=== PATIENT | female | born 1990 | race Caucasian/White ===

== ENCOUNTER 2017-04-05 20:05 | Emergency (ER) | payer OTHER, MEDICAID, SELFPAY ==
[2017-04-05 20:06] VITALS: BP 126/67; PULSE 97; RESP 12; TEMP 37.4; O2SAT 98; BMI 27.6
[2017-04-05 21:18] VITALS: BP 115/67; PULSE 89; RESP 17; O2SAT 97
--- NOTE | 2017-04-05 22:42 | NURSING ---
PT FLU POSITIVE.
--- NOTE | 2017-04-05 22:46 | ED.VISSUMM ---
- ER Visit Summary Date of Service: 04/05/17 Chief Complaint: Flulike symptoms that started less than 48 hours ago History of Present Illness: The patient is a 26 F who is a Ab0 female who is approximately 21 weeks gestation presents with flulike symptoms that started less than 48 hours ago. She complains of headache, rhinorrhea, sore throat, cough that is now productive of green colored sputum, myalgias and arthralgias and subjective fever with sweats. She denies any GI or symptoms. She denies photophobia sips of her neck. She denies rash. Please read written note for complete detail Physical Examination: Vital signs are unremarkable. HEENT exam is remarkable for clear rhinorrhea. Posterior pharynx mild erythema with postnasal drainage. Lungs are without wheeze rales rhonchi. Heart is regular without murmur, gallop or rub. There is no skin lesions noted. Test Results: Test for influenza is positive Emergency Department Course and Treatment: Tamiflu 750 mg in the department and her appliance worker Dr. Sho Amezcua was notified Treatment Plan: Prescription for Tamiflu 75 mg 1 twice daily for a total of 10 doses Disposition: Discharge to home Impression: Influenza Second trimester History of labor This note was generated with [employer] dictation software. It may contain incorrect words, spelling, and punctuation that were not noted in review of the chart prior to signing ED Disposition - Plan for ED Patient: Disposition: Home or Assisted Living Chief Complaint: Cold Sx Instructions: ED Flu Prescriptions: Oseltamivir Phosphate [Tamiflu] 75 mg PO BID #9 cap Referrals: Gallo Chacko III, MD [Primary Care Provider] - Sho Amezcua MD [STAFF PHYSICIAN] - As Needed Additional Instructions: Your prescription was electronically transmitted to [facility]
--- NOTE | 2017-04-05 22:50 | ED.DCSUM_ITS ---
- ER Visit Summary Date of Service: 04/05/17 Chief Complaint: Flulike symptoms that started less than 48 hours ago History of Present Illness: The patient is a 26 F who is a Ab0 female who is approximately 21 weeks gestation presents with flulike symptoms that started less than 48 hours ago. She complains of headache, rhinorrhea, sore throat, cough that is now productive of green colored sputum, myalgias and arthralgias and subjective fever with sweats. She denies any GI or symptoms. She denies photophobia sips of her neck. She denies rash. Please read written note for complete detail Physical Examination: Vital signs are unremarkable. HEENT exam is remarkable for clear rhinorrhea. Posterior pharynx mild erythema with postnasal drainage. Lungs are without wheeze rales rhonchi. Heart is regular without murmur, gallop or rub. There is no skin lesions noted. Test Results: Test for influenza is positive Emergency Department Course and Treatment: Tamiflu 750 mg in the department and her cloth spreader Dr. Sho Amezcua was notified Treatment Plan: Prescription for Tamiflu 75 mg 1 twice daily for a total of 10 doses Disposition: Discharge to home Impression: Influenza Second trimester History of labor This note was generated with [employer] dictation software. It may contain incorrect words, spelling, and punctuation that were not noted in review of the chart prior to signing ED Disposition - Plan for ED Patient: Disposition: Home or Assisted Living Chief Complaint: Cold Sx Instructions: ED Flu Prescriptions: Oseltamivir Phosphate [Tamiflu] 75 mg PO BID #9 cap Referrals: Gallo Chacko III, MD [Primary Care Provider] - Sho Amezcua MD [STAFF PHYSICIAN] - As Needed Additional Instructions: Your prescription was electronically transmitted to [facility]
[2017-04-05 22:51] VITALS: BP 114/54; PULSE 83; RESP 15; O2SAT 98
[2017-04-05] MEDS: Oseltamivir Phosphate 75 MG Capsule PO (22:56)
== END 2017-04-05 22:58 | disposition home or self-care (01) ==
PROVIDERS: Emergency Provider Emergency Medicine; Family Provider Family Medicine; PCP Family Medicine
DX: O98.512 Other viral diseases complicating pregnancy, second trimester (principal); J11.1 Influenza due to unidentified influenza virus with other respiratory manifestations; O09.212 Supervision of pregnancy with history of pre-term labor, second trimester; Z3A.21 21 weeks gestation of pregnancy
CPT/HCPCS: 87804; 99282

== ENCOUNTER → 2017-05-16 08:43 | Outpatient (CLI) | payer OTHER, MEDICAID, SELFPAY ==
[2017-05-16 13:04] LABS: Absolute Lymphocyte Count 1.64 X10^3/ul (0.83-4.51); Absolute Neutrophil Count 6.2 X10^3/uL (2.0-7.7); Basophil# 0.02 X10^3/uL; Basophil% 0.2 % (0-1); Eosinophil# 0.32 X10^3/uL; Eosinophils% 3.8 % (0-5); Hematocrit 32.2 % (37-47); Hemoglobin 10.7 g/dl (12.0-15.0); Lymphocyte # 1.64 X10^3/ul (4.0); Lymphocyte % 19.3 % (19-41); Mean Corp Hgb Conc 33.2 g/gl (32-36); Mean Corpuscular Hgb 30.3 pg (27.0-32.0); Mean Corpuscular Volume 91.2 fL (81-99); Mean Platelet Vol. 10.6 fl (6.2-12.0); Monocyte# 0.29 X10^3/uL; Monocyte% 3.4 % (0-10); Neutrophil # 6.21 X10^3/uL (2.7-7.7); Neutrophil % 72.9 % (47-70); Platelet Count 240 K/mm3 (150-450); RBC Distribution Width CV 13.1 % (11.6-14.6); RBC Distribution Width SD 42.9 fl (35.1-43.9); Red Blood Count 3.53 M/mm3 (4.2-5.4); White Blood Count 8.5 K/mm3 (4.4-11.0)
[2017-05-16 13:12] LABS: POSITIVE COUNT NO; POSITIVE DIFFERENTIAL NO; POSITIVE MORPHOLOGY NO
[2017-05-16 13:28] LABS: Glucose Challenge Gest 1H 50g 113 mg/dL (70-140)
== END ==
PROVIDERS: Family Provider Family Medicine; PCP Family Medicine; Visit Provider Obstetrics & Gynecology
DX: O09.892 Supervision of other high risk pregnancies, second trimester (principal); Z3A.00 Weeks of gestation of pregnancy not specified
CPT/HCPCS: 36415; 82950; 85025

== ENCOUNTER → 2017-05-16 18:04 | Outpatient (CLI) | payer OTHER, MEDICAID, SELFPAY | PROVIDERS: Family Provider Family Medicine; PCP Family Medicine; Visit Provider Obstetrics & Gynecology | DX: O09.892 Supervision of other high risk pregnancies, second trimester (principal); Z3A.00 Weeks of gestation of pregnancy not specified | CPT/HCPCS: 87086; 87088 ==

== ENCOUNTER → 2017-06-18 10:16 | Outpatient (CLI) | payer OTHER, MEDICAID, SELFPAY ==
[2017-06-18 12:58] LABS: Absolute Lymphocyte Count 1.56 X10^3/ul (0.83-4.51); Absolute Neutrophil Count 5.9 X10^3/uL (2.0-7.7); Basophil# 0.02 X10^3/uL; Basophil% 0.2 % (0-1); Eosinophil# 0.21 X10^3/uL; Eosinophils% 2.6 % (0-5); Hematocrit 33.8 % (37-47); Hemoglobin 11.5 g/dl (12.0-15.0); Lymphocyte # 1.56 X10^3/ul (4.0); Mean Corpuscular Hgb 30.5 pg (27.0-32.0); Mean Corpuscular Volume 89.7 fL (81-99); Mean Platelet Vol. 10.4 fl (6.2-12.0); Monocyte# 0.53 X10^3/uL; Monocyte% 6.5 % (0-10); Neutrophil # 5.85 X10^3/uL (2.7-7.7); Neutrophil % 71.5 % (47-70); Platelet Count 259 K/mm3 (150-450); RBC Distribution Width CV 13.5 % (11.6-14.6); RBC Distribution Width SD 43.3 fl (35.1-43.9); Red Blood Count 3.77 M/mm3 (4.2-5.4); White Blood Count 8.2 K/mm3 (4.4-11.0)
[2017-06-18 13:00] LABS: POSITIVE COUNT NO; POSITIVE DIFFERENTIAL NO; POSITIVE MORPHOLOGY NO
== END ==
PROVIDERS: Family Provider Family Medicine; PCP Family Medicine; Visit Provider Nurse Practitioner Women's Health
DX: O99.012 Anemia complicating pregnancy, second trimester (principal); Z3A.00 Weeks of gestation of pregnancy not specified
CPT/HCPCS: 85025

== ENCOUNTER → 2017-07-02 16:57 | Outpatient (CLI) | payer OTHER, MEDICAID, SELFPAY ==
[2017-07-02 18:16] LABS: Group B Strep DNA By PCR Negative (Negative); Internal Control PASS; Probe Check PASS; Specimen Processing Control PASS
== END ==
PROVIDERS: Family Provider Family Medicine; PCP Family Medicine; Visit Provider Obstetrics & Gynecology
DX: O09.892 Supervision of other high risk pregnancies, second trimester (principal); Z3A.00 Weeks of gestation of pregnancy not specified
CPT/HCPCS: 87081; 87653

== ENCOUNTER → 2017-07-23 16:34 | Outpatient (CLI) | payer OTHER, MEDICAID, SELFPAY ==
[2017-07-23 19:10] LABS: Group B Strep DNA By PCR Negative (Negative)
[2017-07-23 19:11] LABS: Internal Control PASS; Probe Check PASS; Specimen Processing Control PASS
== END ==
PROVIDERS: Family Provider Family Medicine; PCP Family Medicine; Visit Provider Obstetrics & Gynecology
DX: O09.892 Supervision of other high risk pregnancies, second trimester (principal); Z3A.00 Weeks of gestation of pregnancy not specified
CPT/HCPCS: 87081; 87653

== ENCOUNTER → 2017-07-30 17:31 | Outpatient (CLI) | payer OTHER, MEDICAID, SELFPAY | PROVIDERS: Family Provider Family Medicine; PCP Family Medicine; Visit Provider Nurse Practitioner Women's Health | DX: O09.892 Supervision of other high risk pregnancies, second trimester (principal); Z3A.00 Weeks of gestation of pregnancy not specified | CPT/HCPCS: 87086; 87088 ==

== ENCOUNTER 2017-08-07 13:25 | Outpatient (CLI) | payer OTHER, MEDICAID, SELFPAY ==
[2017-08-07 14:50] VITALS: BMI 31.2
--- NOTE | 2017-08-07 14:56 | OB.TRI.NOTE ---
- Problem List (1) False labor after 37 completed weeks of gestation Status: Acute History of Present Illness Reason For Visit: ROL Allergies venom-wasp Allergy (Verified 08/06/17 09:15) Anaphylaxis NST - FHR Rate Baby A Baseline: 120-130 Variability:: Moderate Accelerations:: 15 x 15 Decelerations:: None NST Reactive:: Yes FHR Category:: Category I Uterine Activity:: q8-10 Impression/Plan false labor no cervical change given percocet for pain dc home
[2017-08-07] MEDS: Acetaminophen 325 MG Tablet 650 MG PO (15:22)
[2017-08-07] MEDS: oxyCODONE 5 MG Tablet 10 MG PO (15:22)
== END 2017-08-07 16:15 | disposition home or self-care (01) ==
LOC: WPOUT 13:57 → WP 14:50
PROVIDERS: Family Provider Family Medicine; PCP Family Medicine; Visit Provider Obstetrics & Gynecology
DX: O47.1 False labor at or after 37 completed weeks of gestation (principal); Z3A.00 Weeks of gestation of pregnancy not specified
CPT/HCPCS: 59025; 59050; 99218; G0378

== ENCOUNTER 2017-08-08 09:56 | Emergency (ER) | payer OTHER, MEDICAID, SELFPAY ==
[2017-08-08 09:57] VITALS: BP 125/64; PULSE 80; RESP 16; TEMP 36.8; O2SAT 97; BMI 31.2
--- NOTE | 2017-08-08 10:13 | ED.DCSUM_ITS ---
- ER Visit Summary Date of Service: 08/08/17 Chief Complaint: Sore throat History of Present Illness: The patient is a 27 F who is currently 38 weeks . Patient states her daughter was diagnosed with strep last week. Last evening she developed sore throat and ear pressure. She had myalgias but no measured fever. She has not had significant cough. She does have pain with swallowing but is able to drink and eat. Physical Examination: Vital signs are unremarkable. Patient sitting upright in bed no acute distress. She is a strong voice and is tolerating secretions well. TMs are clear bilaterally. Posterior pharynx examination was 3+ tonsils with erythema. No exudate noted at this time. Uvula is midline. She does have bilateral cervical lymphadenopathy. Heart is regular rate and rhythm. Lung sounds are clear. Abdomen is soft and gravid. She has been feeling normal movement. Test Results: [] Emergency Department Course and Treatment: Patient has known exposure with exam consistent with strep pharyngitis. She will be treated with amoxicillin. Treatment Plan: [] Disposition: Discharge Impression: 1. Strep pharyngitis 2. Third trimester This note was generated with [facility] dictation software. It may contain incorrect words, spelling, and punctuation that were not noted in review of the chart prior to signing ED Disposition - Plan for ED Patient: Chief Complaint: Sore Throat Referrals: Gallo Chacko III, MD [Primary Care Provider] -
--- NOTE | 2017-08-08 10:13 | ED.DEP ---
ED Disposition - Plan for ED Patient: Disposition: Home or Assisted Living Chief Complaint: Sore Throat Instructions: ED Strep Pharyngitis Poss Prescriptions: Amoxicillin 875 mg PO BID #10 tablet Referrals: Gallo Chacko III, MD [Primary Care Provider] - Sho Amezcua MD [STAFF PHYSICIAN] -
[2017-08-08] MEDS: AMOXICILLIN 500 MG CAPSULE 1000 MG PO (10:22)
[2017-08-08 10:23] VITALS: BP 125/64; PULSE 80; RESP 17
== END 2017-08-08 10:39 | disposition home or self-care (01) ==
LOC: ED 10:34
PROVIDERS: Emergency Provider Emergency Medicine; Family Provider Family Medicine; PCP Family Medicine
DX: O26.893 Other specified pregnancy related conditions, third trimester (principal); J02.0 Streptococcal pharyngitis; Z3A.38 38 weeks gestation of pregnancy; Z79.899 Other long term (current) drug therapy
CPT/HCPCS: 99283

== ENCOUNTER 2017-08-15 14:55 | Inpatient (IN) | payer OTHER, MEDICAID, SELFPAY ==
--- NOTE | 2017-08-15 11:00 | US_ITS ---
STUDY: SECOND AND THIRD TRIMESTER OBSTETRICAL ULTRASOUND - LIMITED REASON FOR EXAM: Female, 27 years old. growth LMP: 11/11/2016 PRIOR ULTRASOUND: None. TECHNIQUE: Transabdominal ultrasound evaluation was performed. FINDINGS: There is a single intrauterine fetus. The fetus is in a cephalic presentation. There is demonstrated cardiac activity with a heart rate of 132 bpm. There is a normal amniotic fluid volume. The largest amniotic fluid pocket measures 3.3 cm. The amniotic fluid index (GONZALO) is 11.4 cm. The placenta is anterior in location and is not low lying. There are Grade 2 placental changes. The cervix measures 3.3 cm in length. BIOMETRY: BPD: 9.0: 36 weeks, 4 days HC: 32.2: 36 weeks, 3 days AC: 32.2: 36 weeks, 0 days FL: 7.0: 35 weeks, 6 days Age by LMP: 39 weeks, 4 days. CHAY by LMP: 08/18/2017. age by prior US: weeks, days. CHAY by prior US: . age by current US: 36 weeks, 2 days. CHAY by current US: 09/10/2017. Estimated weight: 2859 grams, +/- 418 grams, 7 percentile. Gender: US/OB Limited With Biometrics IMPRESSION: Single live fetus in a vertex presentation. survey not performed on this exam. Placenta is grade 2 and is not low-lying. Cervix is closed. age by current US: 36 weeks, 2 days. CHAY by current US: 09/10/2017. Estimated weight: 2859 grams, +/- 418 grams, 7 percentile. Electronically Signed: Alcon Gaviria MD at 23:46 EDT , Service support ,
--- NOTE | 2017-08-15 14:55 | DT_ITS ---
This patient was seen during an EMR downtime August 12, 2017 - August 19, 2017. This patient may have a combination of paper and electronic documentation or all paper documentation. All documentation is viewable within the e-chart portion of [employer] for each patient visit.
[2017-08-20 04:06] LABS: Hematocrit 32.1 % (37-47); Hemoglobin 10.4 g/dl (12.0-15.0); Mean Corp Hgb Conc 32.4 g/gl (32-36); Mean Corpuscular Hgb 28.3 pg (27.0-32.0); Mean Corpuscular Volume 87.5 fL (81-99); Mean Platelet Vol. 11.5 fl (6.2-12.0); Platelet Count 203 K/mm3 (150-450); RBC Distribution Width CV 13.5 % (11.6-14.6); RBC Distribution Width SD 41.7 fl (35.1-43.9); Red Blood Count 3.67 M/mm3 (4.2-5.4); Scan Indicated on CBC? Y/N NO; White Blood Count 11.4 K/mm3 (4.4-11.0)
== END 2017-08-17 14:30 | disposition home or self-care (01) | DRG 775 ==
LOC: WP 15:01
PROVIDERS: Admitting Provider Obstetrics & Gynecology; Family Provider Family Medicine; PCP Family Medicine; Visit Provider Obstetrics & Gynecology
DX: O36.5930 Maternal care for other known or suspected poor fetal growth, third trimester, not applicable or unspecified (principal); O34.219 Maternal care for unspecified type scar from previous cesarean delivery; O99.613 Diseases of the digestive system complicating pregnancy, third trimester; K21.9 Gastro-esophageal reflux disease without esophagitis; Z3A.39 39 weeks gestation of pregnancy; Z37.0 Single live birth
CPT/HCPCS: 59025; 59050; 76816; 85027; 86850; 86900; 99218; J7120; G0378

== ENCOUNTER → 2017-08-26 15:14 | Outpatient (CLI) | payer OTHER, MEDICAID, SELFPAY | PROVIDERS: Family Provider Family Medicine; PCP Family Medicine; Visit Provider Obstetrics & Gynecology | DX: R30.0 Dysuria (principal) | CPT/HCPCS: 87086; 87088 ==

== ENCOUNTER 2023-05-28 12:22 | Outpatient (REF) | payer SELFPAY ==
[2023-05-28 12:23] VITALS: BP 123/71; PULSE 76; RESP 15; RESP 16; TEMP 36.4; O2SAT 97; BMI 27.4
--- NOTE | 2023-05-28 13:06 | EDS_ITS ---
HPI History of Present Illness Chief Complaint: Occup Expose Informant: patient Onset/Context/Timing Onset: Today Context: Sudden Onset Timing: Continuous Quality: Puncture wound Location: Tip of right middle finger Worsened by: Nothing Relieved by: Nothing Narrative Narrative: Patient presents with blood-borne exposure that occurred today. Patient was assisting in surgery and was cut on the tip of her right middle finger by the surgical scalpel. Patient states she squeezed her finger. Patient states the bleeding stopped after a few minutes. Patient denies any fevers or chills. Patient denies any paresthesias or weakness. Patient is unsure of her last tetanus. Patient states that she was assisting on a spine surgery. 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- [employer] Smoking Status: Never smoker alcohol intake: current alcohol intake frequency: holidays/special occasions only substance use type: does not use caffeine: Yes what type of physical activity do you participate in: walking seatbelt use: always do you feel safe at home: Yes additional social history: [employer]- [employer] ROS ROS ED Constitutional Constitutional ED: Denies chills or fever(s) Eyes Eyes: Denies blurry vision or change in vision ENT ENT ED: Denies rhinorrhea or sore throat Cardiovascular Cardiovascular: Denies chest pain or palpitations Respiratory/Chest Respiratory/Chest: Denies cough or dyspnea Gastrointestinal Gastrointestinal: Denies nausea or vomiting Genitourinary Genitourinary ED: Denies dysuria or hematuria Musculoskeletal Musculoskeletal: Denies back pain or neck pain Integumentary Denies abscess or rash Neurologic Neurologic: Denies headache(s) or weakness Allergic/Immunologic Allergic/Immunologic ED: Denies mouth swelling or urticaria EXAM Physical Exam Const Vital Signs: 05/28/23 12:23 05/28/23 12:23 Temperature 97.5 F L 97.5 F L Temperature Source Temporal Temporal Pulse Rate 76 76 Respiratory Rate 15 16 Blood Pressure 123/71 H 123/71 H Blood Pressure Mean 88 88 Pulse Ox 97 97 Oxygen Delivery Method Room Air Room Air Positive well nourished and well developed General Appearance ED: well developed and NAD HEENT Reports moist mucous membranes Neck supple and no JVD Extremity Extremity Narrative: There is a small 2 to 3 mm linear laceration over the tip of the right middle finger. There is no active bleeding noted. Sensation was intact to light touch in all digits. Capillary refill was less than 2 seconds in all digits. There is full range of motion in the MP, PIP, and DIP joints of the right middle finger. General Extremety ED: Negative for edema General Extremity: Negative for edema Neuro oriented x3, CN's II-XII intact bilaterally and no sensory deficits noted Sensorium / Orientation: alert Motor Exam: strength 5/5 throughout Psych mental status grossly normal MDM MDM MDM Narrative Medical decision making narrative: Patient was given a tetanus booster here. The wound was cleaned and dressed. Medical exposure labs were obtained. Patient will follow-up with [facility] for these results. Patient was instructed to return if worse in any way. Patient understood and was agreeable with the plan. All questions were answered. Discharge Plan Triage Chief Complaint: Occup Expose ED Provider: Henry Rehman Dx/Rx/DC Orders Clinical Impression: Exposure to blood-borne pathogen, Puncture wound of right middle finger Instructions: ED NEEDLE STICK Health Care Worker Prescriptions: No Action multivitamin Tablet 1 tab PO DAILY Primary Care Provider: Care Physician,No Primary Referrals: Health,Employee [Non-Staff -Ordering Privileges] - 3-5 Days Care Physician,No Primary [Primary Care Provider] - Disposition Disposition: Home, Self Care
[2023-05-28] MEDS: Diphth,Pertuss(Acell),Tet Vac 0.5 ML Vial IM (13:28)
[2023-05-28 13:31] VITALS: BP 122/72; PULSE 74; RESP 16; TEMP 36.4; O2SAT 98
[2023-05-28 13:53] LABS: HIV - WCH Non-Reactive (Nonreactive); Hepatitis B Surface Antibody Non-Reactive; Hepatitis B Surface Antigen Non-Reactive (Nonreactive); Hepatitis C Antibody Non-Reactive (Nonreactive)
== END 2023-05-28 13:40 | disposition home or self-care (01) ==
LOC: ED 12:22
PROVIDERS: Visit Provider Emergency Medicine
DX: S61.212A Laceration without foreign body of right middle finger without damage to nail, initial encounter (principal); W26.8XXA Contact with other sharp object(s), not elsewhere classified, initial encounter; Y92.234 Operating room of hospital as the place of occurrence of the external cause; Z23 Encounter for immunization
CPT/HCPCS: 86703; 86706; 86803; 87340; 90471; 90715

== ENCOUNTER 2023-10-28 11:13 | Emergency (ER) | payer OTHER, SELFPAY ==
[2023-10-28 11:14] VITALS: BP 127/72; PULSE 78; RESP 16; TEMP 36.6; O2SAT 99; BMI 27.7
--- NOTE | 2023-10-28 11:40 | CT_ITS ---
STUDY: CT CERVICAL SPINE WITHOUT CONTRAST REASON FOR EXAM: Female, 33 years old. Injury RADIATION DOSAGE (If Supplied By Facility): CTDIvol = ( 20.77 ) mGy, DLP = ( 442.30 ) mGycm TECHNIQUE: High resolution transaxial imaging was performed without contrast material. Sagittal and coronal images were reconstructed. CT scan performed according to ALARA principles. Automated exposure control used during exam. COMPARISON: No relevant prior comparison study available FINDINGS: BONES: There is no fracture in the cervical spine. The dens is intact. The vertebral body heights are maintained. ALIGNMENT: There is no dislocation. There is straightening of the normal cervical lordosis which may be due to paraspinal muscle spasm or may be positional in nature. DISC SPACES: The vertebral spaces are well-maintained. LUNG APICES: The visualized lung apices are clear. SOFT TISSUES: The visualized paraspinal soft tissues are within normal limits. CT/Spine Cervical without Contras IMPRESSION: No fracture or dislocation in the cervical spine. Straightening of the normal cervical lordosis which may be due to paraspinal muscle spasm or may be positional in nature. No significant degenerative changes. Electronically Signed: Lane Piña MD at 12:39 EDT ,
--- NOTE | 2023-10-28 11:40 | CT_ITS ---
STUDY: CT BRAIN WITHOUT CONTRAST REASON FOR EXAM: Female, 33 years old. Injury RADIATION DOSAGE (If Supplied By Facility): CTDIvol = ( 44.99 ) mGy, DLP = ( 796.11 ) mGycm TECHNIQUE: Transaxial CT imaging of the brain was performed without administration of intravenous contrast material. CT scan performed according to ALARA principles. Automated exposure control used during exam. COMPARISON: No relevant prior comparison study available FINDINGS: PARENCHYMA: There is no acute bleed or infarct. There are normal white matter tracts. VENTRICLES: There is no hydrocephalus. MASTOID AIR CELLS AND PARANASAL SINUSES: The visualized paranasal sinuses are clear. The mastoid air cells are clear. BONES: There is no skull fracture. SOFT TISSUES: The visualized soft tissues are within normal limits. CT/Brain/Head without Contrast IMPRESSION: No acute intracranial abnormality. Electronically Signed: Lane Piña MD at 12:37 EDT ,
--- NOTE | 2023-10-28 11:41 | EDS_ITS ---
HPI HPI - Fall History of Present Illness Chief Complaint: Fall Informant: patient Narrative Narrative: Very pleasant 36-year-old female presenting to the emergency room with the chief complaint head neck injury. 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 No reported loss of consciousness. She does not take blood thinners. She denies seeing any bleeding. She notes pain at around the C7 spinous process. No arm or leg symptoms. No nausea vomiting. 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- [employer] Smoking Status: Never smoker alcohol intake: current alcohol intake frequency: holidays/special occasions only substance use type: does not use caffeine: Yes what type of physical activity do you participate in: walking seatbelt use: always do you feel safe at home: Yes additional social history: [employer]- [employer] ROS ROS ED Constitutional Constitutional ED: Denies chills, fever(s) or weight loss Eyes Eyes: Denies change in vision or diplopia ENT ENT ED: Denies ear pain, rhinorrhea or sore throat Cardiovascular Cardiovascular: Denies chest pain, orthopnea, palpitations or racing heartbeat Respiratory/Chest Respiratory/Chest: Denies cough, dyspnea or orthopnea Gastrointestinal Gastrointestinal: Denies abdominal pain, diarrhea, nausea or vomiting Genitourinary Genitourinary ED: Denies dysuria, hematuria or urinary frequency Musculoskeletal Musculoskeletal: Reports neck pain; Denies arthralgias, back pain or myalgias Integumentary Denies abscess or rash Neurologic Neurologic: Reports headache(s); Denies paresthesias or weakness Psychiatric Psychiatric: Denies anxiety, depression, suicidal ideation or suicidal thoughts Endocrine Endocrinology: Denies polydipsia, polyphagia or polyuria Allergic/Immunologic Allergic/Immunologic ED: Denies mouth swelling, tongue swelling or urticaria EXAM Physical Exam Const Vital Signs: 10/28/23 11:14 10/28/23 11:52 10/28/23 12:58 Temperature 97.8 F 98.2 F Temperature Source Temporal Pulse Rate 78 60 Respiratory Rate 16 18 Respiratory Effort Normal Blood Pressure 127/72 H 118/76 Blood Pressure Mean 90 90 Pulse Ox 99 99 Oxygen Delivery Method Room Air Positive well nourished and well developed General Appearance ED: well developed and NAD HEENT Reports normocephalic, head/scalp atraumatic and moist mucous membranes Eyes PERRL and EOMs intact bilaterally Neck full ROM, no lymphadenopathy, supple and no JVD Neck Narrative: Midline tenderness at the C7 spinous process. Resp normal respiratory effort and clear to auscultation bilaterally Cardio regular rate, regular rhythm and no murmurs GI normal to inspection, nondistended, normoactive bowel sounds and non-tender Palpation: soft Back/Spine no CVA tenderness and normal ROM Extremity normal to inspection General Extremety ED: Negative for edema General Extremity: Negative for edema Neuro oriented x3 and CN's II-XII intact bilaterally Sensorium / Orientation: alert Motor Exam: strength 5/5 throughout Psych mental status grossly normal Mood & Affect: Negative for depressed or tearful Skin no rashes or lesions noted and no wounds MDM MDM MDM Narrative Medical decision making narrative: Differential diagnosis includes but not limited to contusion fracture both skull and cervical spine intracranial hemorrhage/hematoma concussion CT the cervical spine was negative for acute findings of fracture CT the brain negative for hemorrhage. Patient took anti-inflammatories prior to arrival. Plan will be discharge follow-up as needed return if worsening or concerns History & Record Review Discussion w/independent historian: Patient Radiography Diagnostic Testing: Clinical Impression(s) from Imaging Studies Brain CT 10/28/23 11:40 IMPRESSION: No acute intracranial abnormality. Electronically Signed: Lane Piña MD at 12:37 EDT , Cervical Spine CT 10/28/23 11:40 IMPRESSION: No fracture or dislocation in the cervical spine. Straightening of the normal cervical lordosis which may be due to paraspinal muscle spasm or may be positional in nature. No significant degenerative changes. Electronically Signed: Lane Piña MD at 12:39 EDT , Discharge Plan Triage Chief Complaint: Fall ED Provider: Jhon Vela Dx/Rx/DC Orders Clinical Impression: Contusion of scalp, Contusion of neck, Fall Instructions: ED Head Injury (Adult), ED Neck Sprain or Strain Prescriptions: No Action multivitamin Tablet 1 tab PO DAILY Primary Care Provider: Alon Erickson Referrals: Alon Erickson MD [Primary Care Provider] - As Needed Print Language: Latvian Disposition Disposition: Home, Self Care Discharge Date/Time: 10/28/23 12:58
[2023-10-28 12:58] VITALS: BP 118/76; PULSE 60; RESP 18; TEMP 36.8; O2SAT 99
== END 2023-10-28 12:58 | disposition home or self-care (01) ==
PROVIDERS: Emergency Provider Emergency Medicine; PCP Internal Medicine; Visit Provider Emergency Medicine
DX: S00.03XA Contusion of scalp, initial encounter (principal); S10.93XA Contusion of unspecified part of neck, initial encounter; W01.0XXA Fall on same level from slipping, tripping and stumbling without subsequent striking against object, initial encounter; Y99.0 Civilian activity done for income or pay
CPT/HCPCS: 70450; 72125; 99282

== ENCOUNTER → 2024-08-31 | Outpatient (CLI) | payer OTHER, SELFPAY ==
--- NOTE | 2024-08-31 10:00 | RAD_ITS ---
PROCEDURE: FOOT MIN 3 VIEWS 08/31/2024 REASON FOR EXAM: PAIN TECHNIQUE: FOOT MIN 3 VIEWS COMPARISON: None RAD/Foot min 3 Views IMPRESSION: An intra-articular mildly-comminuted Fracture of the distal portion of the left 5th proximal phalanx is seen. On lateral imaging, normal contour of the Achilles tendon is seen. Mild inferi or calcaneal spurring is noted. No ankle joint effusion is evident. Minimal degenerative changes are seen of the 1st metatarsophalangeal joint, wit hout hallux valgus or joint space narrowing identified. Reading Location: [place] [id number]
== END | disposition home or self-care (01) ==
LOC: MTRAD 09:57
PROVIDERS: PCP Internal Medicine; Referring Provider Physician Assistant; Visit Provider Physician Assistant
DX: M79.672 Pain in left foot (principal)
CPT/HCPCS: 73630

== ENCOUNTER → 2024-11-26 | Outpatient (CLI) | payer OTHER, SELFPAY ==
--- OUTSIDE RECORDS SUMMARY | 2024-11-26 06:58 | XMS RPT_ITS | CCD ---
Author Organization [facility] Care Team Providers Care Geospatial Analyst Name Role Phone Leland UTILIZATION REVIEW SPECIALIST, Kiana Wray Unavailable Goldie FLETCHER, Sho Luna Unavailable Manisha Campoverde Unavailable Unavailable Georgina FLETCHER, Dr. Chi Primary Care Provider Dr. Alon Erickson MD Referring Provider Joan MUNOZ-Bryan Fuller Attending Provider Lane Mead Attending Provider Lane Mead Referring Provider Dr. Alon Erickson MD Primary Care Provider Dr. Alon Erickson MD Referring Provider Kiana Hairston Attending Provider Lane Mead Attending Unavailable Lane Mead Referring Unavailable Oleghe, Efewongbe Primary Care Unavailable Oleghe, Efewongbe Primary Care Unavailable Moomaw, Bryan Attending Unavailable Oleghe, Efewongbe Referring Unavailable Lane Mead Attending Unavailable Oleghe, Efewongbe Primary Care Unavailable Oleghe, Efewongbe Referring Unavailable Moomaw, Bryan Attending Unavailable Oleghe, Efewongbe Primary Care Unavailable Oleghe, Efewongbe Referring Unavailable Oleghe, Efewongbe Primary Care Unavailable Lane Mead Attending Unavailable Oleghe, Efewongbe Referring Unavailable Kiana Fisher Attending Unavailable Oleghe, Efewongbe Referring Unavailable Oleghe, Efewongbe Primary Care Unavailable Allergies Allergy Classification Reported Allergen(s) Allergy Type Date of Onset Reaction(s) Facility (4 sources) venom-wasp Allergy to substance 05-28-2023 Anaphylaxis [facility] (1 source) venom-wasp Drug allergy (disorder) 11-19-2024 [facility] Repository Medications Current Medications Medication Drug Class(es) Dates Sig (Normalized) Sig (Original) acetaminophen 325 mg oral tablet (1 source) Start: 11-19-2024 take 1 tablet by mouth once as needed Acetaminophen (Tylenol) 325 mg tablet Active 325 mg PO ONCE as needed November 19, 2024 12:00am ibuprofen 200 mg oral tablet (1 source) Nonsteroidal Anti-inflammatory Drug Start: 11-19-2024 take 1 tablet by mouth every six hours as needed Ibuprofen 200 mg tablet Active 200 mg PO EVERY 6 HOURS as needed November 19, 2024 12:00am Multivitamin preparation (1 source) Start: 04-25-2022 take 1 tablet by mouth once daily Multivitamin Active 1 TABLET PO DAILY April 25, 2022 1:00am Completed/Discontinued Medications Medication Drug Class(es) Dates Sig (Normalized) Sig (Original) amoxicillin 875 mg oral tablet (4 sources) Penicillin-class Antibacterial Start: 08-08-2017 End: 09-26-2017 take 1 tablet by mouth twice daily Amoxicillin 875 MG tablet Discontinued 875 mg PO TWICE A DAY 10 0 August 08, 2017 12:00am September 26, 2017 2:23pm azithromycin 250 mg oral tablet (7 sources) Macrolide Antimicrobial Start: 01-01-2017 AZITHROMYCIN 250 MG TABS 2 tabs day one and then 1 tab x 4 days AZITHROMYCIN [id number] Sho Amezcua MD cephalexin 500 mg oral capsule (4 sources) Cephalosporin Antibacterial Start: 08-28-2017 End: 09-04-2017 take 1 capsule by mouth three times daily Cephalexin (Keflex) 500 mg capsule Discontinued 500 mg PO THREE TIMES A DAY 21 7 0 August 28, 2017 12:00am September 03, 2017 12:00am September 04, 2017 12:06am space evenly during waking hours fluconazole 150 mg oral tablet (4 sources) Azole Antifungal Start: 05-21-2018 End: 04-25-2022 Fluconazole 150 mg tablet Discontinued 150 mg PO .COMPLEX 2 0 May 21, 2018 12:00am April 25, 2022 1:59pm 150 mg PO take one po now and repeat in 3 days Multivitamin tablet (3 sources) Start: 04-25-2022 End: 11-19-2024 Multivitamin tablet Discontinued 1 {tbl} PO DAILY April 25, 2022 1:00am November 19, 2024 10:14am Start: 04-25-2022 Multivitamin t ablet Active 1 {tbl} PO DAILY April 25, 2022 1:00am Prenat.Vits,Oh,Nby-Ciid-Nmj ic ( Vitamin) tablet (4 sources) Start: 02-26-2017 End: 09-26-2017 Prenat.Vits,Oh,Vzg-Wnvq-Tuc ic ( Vitamin) tablet Discontinued 1 {tbl} PO daily February 26, 2017 1:00am September 26, 2017 2:23pm Start: 02-26-2017 End: 09-26-2017 take 1 tablet by mouth once daily Prenat.Vits,Oh,Hsh-Cudx-Rlxvs ( Vitamin) tablet Discontinued 1 TABLET PO daily February 26, 2017 1:00am September 26, 2017 2:23pm VIT-FE OMW-HA-CKEVY CAPS (3 sources) Start: 12-17-2016 FORMULA CAPS 1 daily VIT-FE VEC-TX-SAWIL CAPS [id number] Sho Amezcua MD VIT-FE MKW-RR-ATGDE CAPS (9 sources) Start: 12-17-2016 FORMULA CAPS 1 daily VIT-FE FWE-IL-GYTVH CAPS [id number] Sho Amezcua MD promethazine hydrochloride 12.5 mg oral tablet (7 sources) Phenothiazine Start: 01-01-2017 take 1 tablet by mouth every six hours as needed PROMETHAZINE HCL 12.5 MG TABS 1 po q 6 hours as needed PROMETHAZINE HCL [id number] Sho Amezcua MD raNITIdine 150 mg oral tablet (4 sources) Histamine-2 Receptor Antagonist Start: 04-16-2017 End: 09-26-2017 take 1 tablet by mouth at bedtime Ranitidine Hcl (Zantac) 150 mg tablet Discontinued 150 mg PO AT BEDTIME 60 5 April 16, 2017 1:00am September 26, 2017 2:23pm Problems Active Problems Problem Classification Problem Date Documented Date Episodic/Chronic Anxiety disorders (4 sources) Mixed anxiety and depressive disorder; Translations: [Anxiety disorder, unspecified] 05-24-2022 Chronic E Codes: Fall (3 sources) Fall; Translations: [Unspecified fall, initial encounter] 11-05-2023 Episodic Early or threatened labor (4 sources) False labor at or after 37 completed weeks of gestation; Translations: [False labor at or after 37 completed weeks of gestation] 11-13-2017 Episodic Fracture of lower limb (7 sources) Closed fracture proximal phalanx, toe ; Translations: [Displaced fracture of proximal phalanx of left lesser toe(s), initial encounter for closed fracture] Onset: 5 08-31-2024 Episodic Open wounds of extremities (4 sources) Puncture wound of middle finger of right hand; Translations: [Puncture wound without foreign body of right middle finger without damage to nail, initial encounter] 05-28-2023 Episodic Other complications of (4 sources) Anemia in mother complicating , childbirth AND/OR puerperium; Translations: [Anemia complicating , second trimester] 08-07-2017 Chronic Comment on above: iron monthly cbc Other complications of (16 sources) Uterine scar from previous surgery affecting ; Translations: [Maternal care for low transverse scar from previous delivery] Onset: 7 12-17-2016 Episodic Comment on above: considering - 74 % success, consent signed after education from tote given Other complications of (4 sources) High risk ; Translations: [Supervision of other high risk pregnancies, second trimester] 11-13-2017 Episodic Comment on above: PRR EDC 08/18/17 girl Aisha Bullock Spouse Bryan Other connective tissue disease (1 source) Pain in left foot; Translations: [Pain in left foot] Onset: Episodic Other female genital disorders (16 sources) Personal history of pre-term labor; Translations: [History of premature labor] Onset: 7 12-17-2016 Episodic Comment on above: [id number] hydroxypro gesterone injections in Other nutritional; endocrine; and metabolic disorders (4 sources) Body mass index 25-29 - overweight; Translations: [Overweight] 05-24-2022 Episodic Residual codes; unclassified (4 sources) Contact with and (suspected) exposure to potentially hazardous body fluids; Translations: [Exposure to blood-borne pathogen] 05-28-2023 Episodic Superficial injury; contusion (6 sources) Contusion of scalp; Translations: [Contusion of scalp, initial encounter] 11-05-2023 Episodic Unclassified (5 sources) 11 weeks gestation of ; Translations: [11 weeks gestation of ] Onset: 7 01-28-2017 Unclassified (3 sources) S92.512A - Displaced fracture of proximal phalanx of left lesser toe(s), initial encounter for closed fracture Unclassified (1 source) Viral infection (5 sources) Viral disease; Translations: [Viral infection, unspecified] 05-13-2024 Episodic Past or Other Problems Problem Classification Problem Date Documented Da te Episodic/Chronic Other and delivery including normal (20 sources) Primigravida; Translations: [Encounter for supervision of normal first , first trimester] Onset: 12-17-2016 12-31-2016 Episodic Results Test Name Value Interpretation Reference Range Facility Folding Machine Operator Office Visit Reporton 11-19-2024 Folding Machine Operator Office Visit Report [facility] [address], [address] [place] [address] OFFICE VISIT Date of Service: 11/19/24 MR#: [id number] Acct: [id number] Name: TARA ARGUELLES Rep #: [id number] : 1990 Provider: SUSHMA Pride Age/Sex: 34/F Location: [facility] Status: Signed Intake Vital Signs 10/28/23 11:14 11/19/24 10:11 Height 5 ft 4 in 5 ft 4 in Weight: 169 lb 4 oz BMI 29.0 BP 112/71 Intake Visit Reasons: BC Consult *COPAY $20 Slip Cover Estimator Required: No Is patient in pain?: No Allergies venom-wasp Allergy (Verified 11/19/24 10:14) Anaphylaxis Medications ???Medication ???Instructions ???Recorded ???Confirmed ???Type acetaminophen 325 mg tablet 325 mg PO ONCE PRN 11/19/24 History (Tylenol) ibuprofen 200 mg tablet 200 mg PO Q6H PRN 11/19/24 5 History Is last menstrual period known: Yes Last Menstrual Period: 10/29/24 Post menopausal: No Patient : No : No Control Method: bilat salp PFSH Medical History Displaced fracture of proximal phalanx of left lesser toe(s), initial encounter for closed fracture Viral illness Anxiety and depression Overweight (BMI 25.0-29.9) Anxiety Surgical History Status post bilateral salpingectomy Family History Father Diabetes Mother Hypertension Social History housing: house number of children: 2 current occupational status: 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 She reports she has noticed more irregular menses. Reports these as heavier as well. Is already scheduled for an IUD placement for this. She reports she has also noticed feeling more fatigue; resistant weight loss. Questioning whether she may be experiencing early perimenopause--reports her mother went through menopause around age 35. Female Reproductive History Last Menstrual Period: 10/29/24 History 2 Elective abortions Hx Para 2 Spontaneous abortions Hx # Term Pregnancies Ectopic pregnancies Hx # Pregnancies Multiple births # of living children 2 Past Pregnancies Del. Date Name GA/Weeks Outcome Route Bth Weight Gen Labor Lgth Anesthesia Del Locatn Provider FOB 04/12/12 Yisel 37 live - full term 5lbs 5oz Female WC JORDAN 08/16/17 Aisha 39 live - full term Female epidural [facility] JORDAN ROS Const Constitutional: Reports system reviewed and no additional complaints, except as documented and as per HPI Eyes Eyes: Reports system reviewed and no additional complaints, except as documented Cardio Card: Reports system reviewed and no additional complaints, except as documented Resp Resp: Reports system reviewed and no additional complaints, except as documented : Reports system reviewed and no additional complaints, except as documented and as per HPI Exam Const General: cooperative, healthy appearing, comfortable, no acute distress and well developed Resp Effort Inspection: normal respiratory effort, able to speak in complete sentences and symmetric chest movement Psych Appearance: grossly normal Affect: normal affect Speech and Movement: speech and movement normal Coding Level of Care Code Established Pt Off vis,est,level 3 Patient Type Established Diagnoses Perimenopausal symptoms N95.1 Irregular menses N92.6 Assessment and Plan Assessment and Plan (1) Perimenopausal symptoms: Status: Acute Plan: labwork ordered; discussed the variability associated with ordering labs while she is still having menses. Final plan with results. RTO for annual exam recommended. (2) Irregular menses: Status: Acute Plan: already scheduled for IUD placement. RTO for this as planned. Orders: Orders Comprehensive Metabolic Profil Today R53.83 - Other fatigue Follicle Stimulating Hormone Today R53.83 - Other fatigue Estradiol Today R53.83 - Other fatigue Thyroid Stim Hormone (TSH) Today R53.83 - Other fatigue Free T4 Today R53.83 - Other fatigue Vitamin D,25 Hydroxy Today R53.83 - Other fatigue Lipid Profile Today R53.83 - Other fatigue (more content not included)... Normal [facility] Foot min 3 Viewson 5 Foot min 3 Views [facility] [address] [place] [address] Foot min 3 Views MR#: [id number] Acct: [id number] Name: TARA ARGUELLES Rep #: [id number] : 1990 F 34 From: Dexter Hull PCP: Dr. Alon Erickson MD Status: REG CLI Study: Foot min 3 Views Date of Exam: 08/31/24 Exam# [id number] Ordering Dr: Lane Newman PA PROCEDURE: FOOT MIN 3 VIEWS 08/31/2024 REASON FOR EXAM: PAIN TECHNIQUE: FOOT MIN 3 VIEWS COMPARISON: None RAD/Foot min 3 Views IMPRESSION: An intra-articular mildly-comminuted Fracture of the distal portion of the left 5th proximal phalanx is seen. On lateral imaging, normal contour of the Achilles tendon is seen. Mild inferior calcaneal spurring is noted. No ankle joint effusion is evident. Minimal degenerative changes are seen of the 1st metatarsophalangeal joint, without hallux valgus or joint space narrowing identified. Reading Location: [facility] CC: Dr. Alon Erickson MD; JAZMYN Shay Provider Network Analyst: Signed Normal [facility] Urgent Care Visit Reporton 0 08-31-2024 Urgent Care Visit Report [facility] [address] [place] [address] OFFICE VISIT Date of Service: 08/31/24 MR#: [id number] Acct: [id number] Name: TARA ARGUELLES Rep #: [id number] : 1990 Provider: JAZMYN Shay Age/Sex: 34/F Location[place] [facility] Status: Signed Intake Vital Signs 10/28/23 11:14 08/31/24 10:05 Height 5 ft 4 in BP 120/80 Position Sitting Respiration 16 Pulse 61 Temp 98.1 F Temp Source Oral Pulse Oximetry (%) 98 Oxygen Delivery Method room air Intake Visit Reasons: CONCERN FOR BROKEN L PINKY TOE Accompanied by: Other Family Is patient in pain?: Yes (with pressure on toe ) Pain scale (1-10): 8 Allergies venom-wasp Allergy (Verified 08/31/24 10:09) Anaphylaxis Medications ???Medication ???Instructions ???Recorded ???Confirmed ???Type multivitamin 1 tab PO DAILY 04/25/22 08/31/24 H istory Nurse's Note: Patient fell in her tub last night shaving her legs and her pinky toe bent side ways. Patient states she can't put pressure on her toe. Patient a runner and just wanted to make sure its ok before she loreto tapes it. 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 No loss of sensation distal to the site though pain is aggravated to touch with flexion/extension of the same. PMH NC. No ydax-zgn-nfzgiyq medications taken to assist. No other associated symptoms and no other alleviating or aggravating factors. ROS Const Constitutional: No other (As above) Exam Const General: cooperative, healthy appearing and no acute distress Orientation: alert and awake Resp Effort Inspection: normal respiratory effort and able to speak in complete sentences Cardio Rate: regular rate Pulses: radial pulses present Skin General: no rashes or lesions noted Neuro General: patient alert, patient awake and gait normal Cognition: normal cognition Speech: speech normal Gait: normal gait Motor: muscle tone normal throughout Sensory Exam: no sensory deficits noted Extrem General: capillary refill normal and normal exam except as noted (LLT edema/ ecchymosis and tender to touch throughout) Psych Appearance: grossly normal Mental Status: mental status grossly normal Mood: congruent mood Affect: normal affect Speech and Movement: speech and movement normal Attitude: cooperative Coding Level of Care Code Off vis,est,level 4 Diagnoses Displaced fracture of proximal phalanx of left lesser toe(s), initial encounter for closed fracture S92.512A Assessment and Plan Assessment and Plan (1) Displaced fracture of proximal phalanx of left lesser toe(s), initial encounter for closed fracture: Status: Acute Plan: Left little toe radiographs reveal intra-articular displaced fracture of the distal aspect of proximal phalanx per my review, pending radiologist interpretation time patient discharge. Patient declined postop shoe though will comply with loreto taping as instructed today. Declined work excuse. Supportive measures as instructed today. Podiatry referral for first available appointment for reassessment and continuation of care. Patient states acknowledging understanding all the above. This note was generated with [employer] dictation software. It may contain incorrect words, spelling, and punctuation that were not noted in checking the note before signing. Orders: Orders Foot min 3 Views Today M79.672 - Pain in left foot Referrals Podiatry S92.512A - Displaced fracture of proximal phalanx of left lesser toe(s), initial encounter for closed fracture 08/31/24 1104 Date (more content not included)... Normal [facility] Office Visit Reporton 2024 Office Visit Report [facility] [address] 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 COVID/ [facility] Chief Complaint: est care Allergies venom-wasp Allergy (Verified 08/31/24 10:09) Anaphylaxis Office Procedures [facility] Billing Sheet Covid Covid Swab-Rapid: Yes Results POC Estephania Rapid Strep POC Estephania Rapid Strep Negative Last Edit by Kassie Delgado MA on 05/13/24 11:07 POC CEPH COV,FluAB,RSV PCR CEPHEID COVID PCR Not DETECTED Last Edit by Kassie Delgado MA on 05/13/24 11:25 CEPHEID FLU AB PCR NOT DETECTED FLU A B Last Edit by Kassie Delgado MA on 05/13/24 11:25 CEPHEID RSV PCR NOT DETECTED Last Edit by Kassie Delgado MA on 05/13/24 11:25 09/09/24 0612 Date Bryan ORDAZ Cosigner Signature: Date (if applicable) CC: Normal [facility] Laboratory - Microbiology an d Antimicrobial susceptibilityOrdered By: Bryan Franco on 05-13-2024 SARS-CoV-2 (COVID-19) RNA SHIVA+probe Ql (Unsp spec) Not detected [facility] No Panel InformationOrdered By: Bryan Franco on 05-13-2024 POC Nasal Swab Influenza A,B Not detected [facility] POC Nasal Swab RSV Not detected [facility] Rapid group A Streptococcus antigen assay at point of careOrdered By: Bryan Franco on 05-13-2024 S. pyogenes Ag IA.rapid Ql (Throat) Negative [facility] Urgent Care Visit Reporton 0 05-13-2024 Urgent Care Visit Report [facility] [address] [place] [address] OFFICE VISIT Date of Service: 05/13/24 MR#: [id number] Acct: [id number] Name: TARA ARGUELLES Rep #: [id number] : 1990 Provider: SUSHMA Franoc Age/Sex: 33/F Location: [facility] Status: Signed Intake Vital Signs 10/28/23 11:14 05/13/24 10:42 Height 5 ft 4 in Weight: 161 lb 6.4 oz BMI 27.7 BP 127/72 H 120/80 Position Sitting Respiration 16 Pulse 78 69 Temp 97.8 F 98.3 F Temp Source Temporal Oral Pulse Oximetry (%) 99 99 Oxygen Delivery Method room air Intake Visit Reasons: SORE THROAT, COUGH , CHILLS Accompanied by: Self Allergies venom-wasp Allergy (Verified 05/13/24 10:47) Anaphylaxis Medications ???Medication ???Instructions ???Recorded ???Confirmed ???Type multivitamin 1 tab PO DAILY 04/25/22 05/13/24 H istory Nurse's Note: Patient has ST,cough and chills going on since yesterday. 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 ROS: As noted in HPI Physical Exam: VITALS: Reviewed. GEN: Healthy appearing, well-developed, NAD. PSYCH: AOx3. Normal memory, mood, and affect. HEENT -Eyes: -No discharge or redness; -Ears: -Mouth and throat: Moist mucous membranes with mild tonsillar erythema NECK: CV: Regular rate and rhythm LUNGS: Normal respiratory effort. Lungs clear bilaterally. SKIN: Warm, well perfused. No skin rashes or abnormal lesions noted. MSK: Normal gait. NEURO: Ambulating with no limitations. Normal muscle strength and tone. No focal deficits. Results POC Estephania Rapid Strep POC Estephania Rapid Strep Negative Last Edit by Kassie Delgado MA on 05/13/24 11:07 POC CEPH COV,FluAB,RSV PCR CEPHEID COVID PCR Not DETECTED Last Edit by Kassie Delgado MA on 05/13/24 11:25 CEPHEID FLU AB PCR NOT DETECTED FLU A B Last Edit by Kassie Delgado MA on 05/13/24 11:25 CEPHEID RSV PCR NOT DETECTED Last Edit by Kassie Delgado MA on 05/13/24 11:25 Coding Level of Care Code Off vis,est,level 3 Diagnoses Viral illness B34.9 Assessment and Plan Assessment and Plan (1) Viral illness: Status: Acute Plan: Patient tested negative for COVID, flu, RSV, and strep. Patient symptoms are most likely viral in origin. She will use yrmd-ous-skgmqmv treatments as necessary and follow-up with PCP if symptoms not improving. Orders: Orders POC Cepheid Covid, FluAB, RSV Today POC Estephania Rapid Strep A Today 05/13/24 1126 Date Bryan Joan UTILIZATION REVIEW SPECIALIST-C Cosigner Signature: Date (if applicable) CC: Normal [facility] Office Visit Reporton 2023 Office Visit Report [facility] [address] [place] [address] OFFICE VISIT Date of Service: 12/02/23 MR#: [id number] Acct: [id number] Patient: TARA ARGUELLES Rep #: [id number] : 1990 Provider: JAZMYN Shay Age/Sex: 33/F Location: [facility] Status: Signed Intake Vital Signs 10/28/23 11:14 Height 5 ft 4 in Intake Visit Reasons: COVID-19 Chief Complaint: est care Allergies venom-wasp Allergy (Verified 10/28/23 11:16) Anaphylaxis Results POC CEPH COV,FluAB,RSV PCR CEPHEID COVID PCR Not DETECTED Last Edit by Edita Salazar MA on 12/02/23 10:14 CEPHEID FLU AB PCR NOT DETECTED FLU A B Last Edit by Edita Salazar MA on 12/02/23 10:14 CEPHEID RSV PCR NOT DETECTED Last Edit by Edita Salazar MA on 12/02/23 10:14 Assessment and Plan Assessment and Plan Orders: Orders POC Cepheid Covid, FluAB, RSV Today 12/02/[address] [place] Signature: Date (if applicable) CC: Normal [facility] CNOVon 05-23-2021 CNOV Office Visit (FAMPWS ) TARA ARGUELLES ([id number]) 1990 [employer] Date Time Provider Department 05/23/21 12:00 PM MJ COLLIER FAMPWS During your visit today, we recorded the following information about you: Temperature Pulse Respiration Blood pressure 97.5 degrees 76/minute 16/minute 120/60 Weight 80.7 kg Lui Davis LPN 05/24/2021 7:00 AM Signed THE LAST 2 WEEKS, HAVE YOU BEEN BOTHERED BY ANY OF THE FOLLOWING? - Little interest or pleasure in doing things 0 NOT AT ALL Feeling down, depressed, or hopeless 0 Trouble falling or staying asleep, or sleeping too much 0 Feeling tired or having little energy 0 Poor appetite or overeating 0 Feeling bad yourself-you are a failure or have let yourself or others 0 Trouble concentrating, like reading the paper or watching TV 0 Moving/speaking slowly (others notice) OR being more fidgety/restless 0 Thoughts that you would be better off or of hurting yourself 0 PHQ TOTAL SCORE = 0 PHQ problems effect on difficulty of work, home, and social activity: 1 - NOT DIFFICULT AT ALL Mj Collier, DO 05/24/2021 7:00 AM Signed CC: Taracynthia Arguelles is a 30 year old female who presents to the office for weight concerns HPI: Overall is doing well. 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 She has had a lot of sitting/studying over the last 1-2 years since she started school thus not exercising as much as what she would like, is now getting back into running. Overall does eat a very healthy diet with vegetables and proteins and fruits. She is interested in starting weight loss medication PAST MEDICAL HISTORY Diagnosis Date - FRACTURE WRIST 1 FALL - Social anxiety disorder 01/28/2018 - Test anxiety 02/03/2016 PAST SURGICAL HISTORY Procedure Laterality Date - DELIVERY ONLY 04/12/2012 , low transverse - SALPINGECTOMY Current Outpatient Medications Medication Sig - Phentermine HCl (ADIPEX-P) 37.5 mg tablet Take 1 tablet by mouth once daily for 30 days. Dx: dyslipidemia, BMI 29.17 - sertraline (ZOLOFT) 50 mg tablet Take 1 tablet by mouth once daily. (Patient not taking: Reported on 03/10/2021 ) No current facility-administered medications for this visit. ALLERGIES Allergen Reactions - Bees Social History Tobacco Use - Smoking status: Never Smoker - Smokeless tobacco: Never Used Vaping Use - Vaping Use: Never used Substance Use Topics - Alcohol use: Yes Comment: Occasionally - Drug use: No ROS: See HPI PE: BP 120/60 Pulse 76 Temp (Src) 97.5 (Left Tympanic) Resp 16 Wt 178 lb (80.7kg) LMP 09/09/2020 Gen: AANDOX3, NAD, non-toxic appearing HEENT: PERRLA, EOMs intact b/l, nares without drainage, pharynx without erythema, exudate, lesions, or drainage. Uvula midline. Neck: No LAD, no thyromegaly, no meningismus. CV: RRR, no murmur Lungs: CTA b/l, no wheezing Skin: No rashes, lesions, or wounds on exposed skin. No edema ASSESSMENT/PLAN: 1. Hypertriglyceridemia - ICD9: 272.1, ICD10: E78.1 (primary diagnosis) - suboptimal control - Encouraged following a low fat, low cholesterol diet. - Discussed the benefits of regular aerobic exercise and weight loss. 2. Overweight (BMI 25.0-29.9) - ICD9: 278.02, ICD10: E66.3 Weight increasing - Behavioral intervention, - Eat well program and - Add Phentermine - PHENTERMINE 37.5 MG TABLET - d/w her regarding healthy diet and exercise importance Mj Collier DO Return if no improvement. Follow up with Mj Collier DO. To ER if develops chest pain, shortness of breath Discussed risks, benefits, alternatives, and potential side effects of medications. Patient/Guardian expressed understanding and agreed with the plan. See patient instructions. Mj Collier DO [address] [place] [address] Referring Provider: SELF [200] Allergies As of Date: 05/23/2021 Noted Allergy Reaction BEES 07/09/2005 Date Reviewed: 03/10/2021 Reviewed by: Madeline Dey APRN.FINANCIAL AUDITOR - Fully Assessed Reason for Visit: Weight Problem [121] Primary Visit Diagnosis:Hypertriglyc eridemia [E78.1] Other Visit Diagnosis:Overweight (BMI 25.0-29.9) [E66.3] Order(s):Phentermine HCl (ADIPEX-P) 37.5 mg tabletTake 1 tablet by mouth once daily for 30 days. Dx: dyslipidemia, BMI 29.17Disp: 30 tabletRfl: 0 Prescriptions as of 05/24/2021 - Phentermine HCl (ADIPEX-P) 37.5 mg tablet Take 1 tablet by mouth once daily for 30 days. Dx: dyslipidemia, BMI 29.17 - sertraline (ZOLOFT) 50 mg tablet Take 1 tablet by mouth once daily. Medication notes this encounter SERTRALINE 50 MG TABLET >> Lui Davis LPN 05/23/2021 11:58 AM >> LUI DAVIS LPN SatMay 23, 2021 11:58 AM Finished Problem List (more content not included)... Normal [facility] Dre 03-11-2021 CNPN Telephone (CORPMN) TARA ARGUELLES ([id number]) 1990 F [facility] Date Time Provider Department 03/11/21 CAS DIAS CORPMN During your visit today, we recorded the following information about you: Allergies As of Date: 03/11/2021 Noted Allergy Reaction BEES 07/09/2005 Date Reviewed: 03/10/2021 Reviewed by: Madeline Dey APRN.FINANCIAL AUDITOR - Fully Assessed Reason for Visit: [facility] COVID Outreach [1594] Prescriptions as of 03/11/2021 - predniSONE (DELTASONE) 20 mg tablet Take 2 tablets by mouth once daily for 5 days. - sertraline (ZOLOFT) 50 mg tablet Take 1 tablet by mouth once daily. 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] 05/04/2015 Test anxiety [F41.8] 02/03/2016 Social anxiety disorder [F40.10] 01/28/2018 Encounter Status:Closed by TULIO YOUNG on 03/11/21 [facility] 03-10-2021 CNOV Office Visit (UCWSTR ) TARA ARGUELLES ([id number]) 1990 F [facility] Date Time Provider Department 03/10/21 9:30 AM MADELINE DEY During your visit today, we recorded the following information about you: Temperature Pulse Respiration Blood pressure 98.1 degrees 97/minute 16/minute 122/74 Weight 81.6 kg Madeline Dey APRN.CNP 03/10/2021 10:22 AM Signed Subjective HPI HPI Tara Arguelles is a 30 year old female who presents today for CC of sore throat, cough, congestion. This started 1 day ago. Has tried otc medication for relief. Symptoms are worsened by nothing. Risk factors sick exposures at work. Denies cp/sob, diarrhea, loss taste/smell, diarrhea. Is vaccinated for coivd. Nonsmoker. Had positive home test for covid few months ago. .Patient presents with: Chest Congestion: cough, sore throat x 1 day PAST MEDICAL HISTORY Diagnosis Date - FRACTURE WRIST 1 FALL - Social anxiety disorder 01/28/2018 - Test anxiety 02/03/2016 PAST SURGICAL HISTORY Procedure Laterality Date - DELIVERY ONLY 04/12/2012 , low transverse - SALPINGECTOMY ALLERGIES Bees MEDICATIONS sertraline (ZOLOFT) 50 mg tablet Take 1 tablet by mouth once daily. FAMILY HISTORY Problem Relation Age of Onset - other (melanoma) Mother - Diabetes Father - Arthritis Maternal Grandmother RHEUMATOID - other (IBS) Maternal Grandmother - Cancer Paternal Grandfather Lung Social History Tobacco Use - Smoking status: Never Smoker - Smokeless tobacco: Never Used Vaping Use - Vaping Use: Never used Substance Use Topics - Alcohol use: Yes Comment: Occasionally - Drug use: No ROS Objective Blood pressure 122/74, pulse 97, temperature 36.7 ?C (98.1 ?F), resp. rate 16, weight 81.6 kg (180 lb), last menstrual period 09/09/2020, SpO2 99 %. Physical Exam Constitutional: General: She is not in acute distress. Appearance: She is not toxic-appearing or diaphoretic. HENT: Head: Normocephalic and atraumatic. Right Ear: Hearing, tympanic membrane, ear canal and external ear normal. Left Ear: Hearing, tympanic membrane, ear canal and external ear normal. Nose: Nose normal. Mouth/Throat: Pharynx: Uvula midline. Oropharyngeal exudate and posterior oropharyngeal erythema present. No pharyngeal swelling or uvula swelling. Eyes: General: Lids are normal. No scleral icterus. Right eye: No discharge. Left eye: No discharge. Conjunctiva/sclera: Conjunctivae normal. Pupils: Pupils are equal, round, and reactive to light. Neck: Trachea: Trachea normal. Cardiovascular: Rate and Rhythm: Normal rate and regular rhythm. Heart sounds: Normal heart sounds. Pulmonary: Effort: Pulmonary effort is normal. Breath sounds: Normal breath sounds. Musculoskeletal: Cervical back: Normal range of motion and neck supple. Lymphadenopathy: Cervical: No cervical adenopathy. Right cervical: No superficial cervical adenopathy. Left cervical: No superficial cervical adenopathy. Skin: Findings: No rash. Neurological: Mental Status: She is alert and oriented to person, place, and time. ASSESSMENT/PLAN: 1. Suspected COVID-19 virus infection - ICD9: V01.79, ICD10: Z20.822 (primary diagnosis) Please notify that covid testing negative. Continue with plan of care as discussed during visit. 2. Sore throat - ICD9: 462, ICD10: J02.9 - suspect viral - Alere Strep Test negative, no culture pending - Discussed supportive care treatment with fluids, rest and analgesia. - The patient should follow up in 3-5 days if symptoms persist or worsen - Call back if drooling, increased temperature, symptoms of dehydration and/or still sick in one week - STREP A MOLECULAR (POC) - CAREGIVER COVID19 - PREDNISONE 20 MG TABLET Agrees to plan Madeline Dey APRN.CNP Referring Provider: SELF [200] Allergies As of Date: 03/10/2021 Noted Allergy Reaction BEES 07/09/2005 Date Reviewed: 03/10/2021 Reviewed by: Madeline Dey APRN.CNP - Fully Assessed Reason for Visit: Chest Congestion [236] Cmt: cough, sore throat x 1 day Primary Visit Diagnosis:Suspected COVID-19 virus infection [Z20.822] Other Visit Diagnosis:Sore throat [J02.9] Order(s):STREP A MOLECULAR (POC) [[id number]] Order #: [id number]. #:[id number] CAREGIVER COVID19 [SQCGCOVD] Order #: [id number] FUTURE predniSONE (DELTASONE) 20 mg tabletTake 2 tablets by mouth once daily for 5 days.Disp: 10 tabletRfl: 0 Prescriptions as of 03/10/2021 - predniSONE (DELTASONE) 20 mg tablet Take 2 tablets by mouth once daily for 5 days. - sertraline (ZOLOFT) 50 mg tablet Take 1 tablet by mouth once daily. Problem List As Of Date 03/10/2021 Noted Resolved Patient requested diagnostic testing [Z01.89] 09/27/2011 12/11/2011 Adnexal mass [N94.89] 05/04/2015 Test anxiety [F41.8] 02/03/2016 Social anxiety disorder [F40.10] more content not included)... Normal [facility] Caregiver [id number] 03-10-20 SARS-CoV-2 (COVID-19) RNA SHIVA+probe Ql (Unsp spec) UPPER RESPIRATORY TRACT SWAB Normal [facility] Comment on above: Performed By: #### C GCOVD ####[address] [phone] SARS-CoV-2 (COVID-19) RNA SHIVA+probe Ql (Unsp spec) Negative for COVID19 (SARS CoV2) by RT-PCR or equivalent method. Normal Negative for COVID19 (SARS CoV2) by RT-PCR or equivalent method. [facility] Comment on above: Result Comment: This test was developed and its performance characteristics determined by [facility]'s [facility] [place]. This test has been authorized by FDA under an Emergency Use Authorization (EUA). This test has been validated in accordance with the FDA's Guidance Document Policy for Diagnostics Testing in Laboratories Certified to Perform High Complexity Testing under CLIA prior to Emergency use Authorization for Coronavirus Disease 2019 during the Public Health Emergency issued on May 09, 2019. Test performed by [facility], [facility] [place], [address] [address]. Performed By: #### C GCOVD ####[address] [phone] CNOVon 11-30-2020 CNOV Office Visit (PEDSWS ) TARA ARGUELLES ([id number]) 1990 F [facility] Date Time Provider Department 11/30/20 9:00 AM NURSE GISSELS MOE CHAUHANSWS During your visit today, we recorded the following information about you: Referring Provider: SELF [200] Allergies As of Date: 11/30/2020 Noted Allergy Reaction BEES 07/09/2005 Date Reviewed: 09/23/2020 Reviewed by: Doris Dean APRN.CNM - Fully Assessed Reason for Visit: Imm/Inj [58] Cmt: flu vaccine Primary Visit Diagnosis:Encounter for immunization [Z23] Order(s):INFLUENZA VACCINE QUADRIVALENT 6 MO - 64 YRS IM [[id number]] Order #: [id number] Prescriptions as of 11/30/2020 - sertraline (ZOLOFT) 50 mg tablet Take 1 tablet by mouth once daily. Problem List As Of Date 11/30/2020 Noted Resolved Patient requested diagnostic testing [Z01.89] 09/27/2011 12/11/2011 Adnexal mass [N94.89] 05/04/2015 Test anxiety [F41.8] 02/03/2016 Social anxiety disorder [F40.10] 01/28/2018 Encounter Status:Closed by ОЛЕГ DELACRUZ CMA on 11/30/20 Normal [facility] Bact/Cand Vag Grm Ston 09-23 Bact/Cand Vag Grm St Sp. Request/Comment : - Swab Smear Result - BACTERIAL VAGINOSIS RESULT: Stain results consistent with normal vaginal ned. No Yeast observed No Polymorphonuclear Leukocytes Normal [facility] Comment on above: Performed By: #### B [facility] ####[facility] [id number] [place], [place] [id number] [place], [place] [phone] CNOVon 09-23-2020 CNOV Office Visit (OBGYWM ) TARA ARGUELLES ([id number]) 1990 F [facility] Date Time Provider Department 09/23/20 1:45 PM DORIS DEAN During your visit today, we recorded the following information about you: Blood pressure Weight Last Period 118/66 72.6 kg 09/09/20 Doris Dean APRN.CNM 09/23/2020 2:41 PM Signed Political Science Professor Visit 09/23/2020 1:59 PM CC: STD screening HPI: Tara Arguelles is a 30 year old woman here for STD screening. Just recently discovered had an affair. Denies any abnormal discharge, odor, itching, burning or pain Any known exposure? Unsure Vaginal discharge? No. Contraception: tubal ligation ROS: Denies fevers, pelvic pain, abnormal vaginal bleeding. O: BP 118/66 Wt 160 lb (72.6 kg) LMP 09/09/2020 (Approximate) BMI 26.22 kg/m? Gen: NAD SSE: normal cervix and vagina with physiological discharge present. A/P: 30 year old woman requesting STD screening. Increased risk for STDs due in infidelity of - GC/Chlamydia, Trich,HIV, Hepatitis B AND C and Syphilis - will notify patient of abnormal results. - discussed condom use for STD prevention. Follow up 1 year for annual heat treat puller exam or sooner as needed. Greater than 50% of this 30 minute visit was spent counseling the patient and coordinating care. Doris Dean APRN.CNM Referring Provider: SELF [200] Allergies As of Date: 09/23/2020 Noted Allergy Reaction BEES 07/09/2005 Date Reviewed: 09/23/2020 Reviewed by: Doris Plotts, CONCRETE TECHNICIAN.CNM - Fully Assessed Reason for Visit: STD [102] Cmt: Std Check Primary Visit Diagnosis:Screen for STD (sexually transmitted disease) [Z11.3] Order(s):GC/CHLAMYDIA DNA DET [SQGCCAMP] Order #: [id number] BACT/LALI VAG GRAM STAIN [SQBVCNSM] Order #: [id number] TRICHOMONAS PREP/ANTIGEN [SQTRICHO] Order #: [id number] HIV 1 2 COMBO(AG/AB),WITH REFLEX TO DIFFERENTIATION [SQHIV12] Order #: [id number] FUTURE SYPHILIS TOTAL W/REFLEX [SQSYPHTX] Order #: [id number] FUTURE HEP B SURF AG SCRN [SQHBSAG] Order #: [id number] FUTURE HCV QUANT RNA BY PCR [SQHCQPCR] Order #: [id number] FUTURE Prescriptions as of 09/23/2020 - sertraline (ZOLOFT) 50 mg tablet Take 1 tablet by mouth once daily. Problem List As Of Date 09/23/2020 Noted Resolved Patient requested diagnostic testing [Z01.89] 09/27/2011 12/11/2011 Adnexal mass [N94.89] 05/04/2015 Test anxiety [F41.8] 02/03/2016 Social anxiety disorder [F40.10] 01/28/2018 Disposition: Return if symptoms worsen or fail to improve. Follow-up and Disposition History Recorded Encounter Status:Closed by DORIS DEAN on 09/23/20 Normal [facility] GC/Chlamydia Amplifon 2020 Chlamydia Amplif Negative Normal [facility] Comment on above: Performed By: #### G CCT ####[facility] [place], [place] [phone] GC Amplification Negative Normal [facility] Comment on above: Performed By: #### G CCT ####[facility] [place], [place] [phone] GC/Chlam Amp Source Cervix Normal [facility] Comment on above: Performed By: #### G CCT ####[facility] [place], [place] [phone] DVT2w38 Ag +HIV12 Abon 09-23 HIV 12 Ag/Ab Non-Reactive Normal Non Reactive [facility] Comment on above: Performed By: #### H CQPCR, HBSAG, HIV12C, SYPHTX ####[address] [phone] HIV-1/2 Antibody Normal [facility] Comment on above: Result Comment: Test Not Indicated Negative No evidence of HIV-1 or HIV-2 infection. Should recent infection be suspected, repeat testing may be considered 2-3 weeks after this draw. HIV Information: [place] Rev. Code 3701.243(E): This information has been disclosed to you from confidential records protected from disclosure by state law. You shall make no further disclosure of this information without the specific, written, and informed release of the individual to whom it pertains or as otherwise permitted by state law. A general authorization for the release of medical or other information is not sufficient for the purpose of the release of HIV test results or diagnoses. Performed By: #### H CQPCR, HBSAG, HIV12C, SYPHTX ####[address] [phone] Hepatitis B Surf. Agon 09-23 Hepatitis B Surf. Ag Negative Normal Negative [facility] Comment on above: Performed By: #### H CQPCR, HBSAG, HIV12C, SYPHTX ####[address] [phone] Hepatitis C RNAon 09-23-2020 Hepatitis C RNA Not detected Normal [facility] Comment on above: Result Comment: Refe rence Range: Negative for HCV RNA The Linear Range of this assay is 15 IU/mL to 100,000,000 IU/mL. Performed By: #### H CQPCR, HBSAG, HIV12C, SYPHTX ####[address] [phone] Syphilis Ttl w/Reflxon 09-23 Syphilis Interp Cannot exclude recen t Treponemal infection if specimen collected within 7 to 10 days after appearance of suspect lesions or 2 to 3 weeks after an exposure. Clinical correlation is required. Normal [facility] Comment on above: Performed By: #### H CQPCR, HBSAG, HIV12C, SYPHTX ####[facility] [address] [place], [place] [phone] Syphilis Screen Rslt Non-Reactive Normal Non Reactive [facility] Comment on above: Performed By: #### H CQPCR, HBSAG, HIV12C, SYPHTX ####[facility], [place] [phone] Trichomonas Prepon 1 Trichomonas Prep Sp. Request/Comment: - Swab Smear Result - Negative for Trichomonas vaginalis antigen This test was developed and its performance characteristics determined by [facility]'s [facility] [place] ([facility] It has not been cleared or approved by the FDA. [facility] is regulated under CLIA as qualified to perform high complexity testing. This test is used for clinical purposes. It should not be regarded as investigational or for research. Normal [facility] Comment on above: Performed By: #### T ADRIANNE ####[facility] [id number] [place], [place] [address]qmq[facility] [place], [place] [phone] CNPRakel 08-26-2020 CNPN Telephone (FAMWS) TARA ARGUELLES ([id number]) 1990 F [facility] Date Time Provider Department 08/26/20 ROBERTA GUTHRIE [facility] During your visit today, we recorded the following information about you: Gloria Rodríguez [facility] 08/26/2020 4:23 PM Signed Patient requesting gallbladder ultrasound can be reached at [phone] Thank you Gloria Anne Guthrie APRN.CNP 08/26/2020 4:28 PM Signed Order placed for RUQ ultrasound. Please assist her to schedule this appointment. AIRK Segovia 08/28/2020 1:30 PM Signed Contacted patient and scheduled ultrasound 09/02 Cassandra Lopez Allergies As of Date: 08/26/2020 Noted Allergy Reaction BEES 07/09/2005 Date Reviewed: 06/17/2020 Reviewed by: Roberta Guthrie - Fully Assessed Reason for Visit: Orders [681] Primary Visit Diagnosis:RUQ pain [R10.11] Order(s):US ABD RT UPPER QUADRANT [[id number]] Order #: [id number] FUTURE Prescriptions as of 08/26/2020 Sig: SERTRALINE 50 MG TABLET Take 1 tablet by mouth once d* Problem List As Of Date 08/26/2020 Noted Resolved Patient requested diagnostic testing [Z01.89] 09/27/2011 12/11/2011 Adnexal mass [N94.89] 05/04/2015 Test anxiety [F41.8] 02/03/2016 Social anxiety disorder [F40.10] 01/28/2018 Encounter Status:Closed by CASSANDRA CARDENAS on 08/28/20 [facility] 07-28-2020 [facility] Telephone (FAMRebecaWS) TARA ARGUELLES ([id number]) 1990 F [facility] Date Time Provider Department 07/28/20 ROBERTA GUTHRIE During your visit today, we recorded the following information about you: Roberta Guthrie APRN.CNP 07/28/2020 1:58 PM Signed Lab results communicated via [facility]. Roberta Guthrie APRN.CNP Allergies As of Date: 07/28/2020 Noted Allergy Reaction BEES 07/09/2005 Date Reviewed: 06/17/2020 Reviewed by: Roberta (Joao) [place] - Fully Assessed Reason for Visit: Results [95] Primary Visit Diagnosis:Screening-pu lmonary TB [Z11.1] Prescriptions as of 07/28/2020 Sig: SERTRALINE 25 MG TABLET Take 1 tablet by mouth once d* Problem List As Of Date 07/28/2020 Noted Resolved Patient requested diagnostic testing [Z01.89] 09/27/2011 12/11/2011 Adnexal mass [N94.89] 05/04/2015 Test anxiety [F41.8] 02/03/2016 Social anxiety disorder [F40.10] 01/28/2018 Encounter Status:Closed by ROBERTA GUTHRIE on 07/28/20 [facility] ANES POSTPROC EVALon 020 ANES POSTPROC EVAL HNO ID: [id number] Author: Cj Ingram Service: ? Author Type: Physician Type: Anesthesia Postprocedure Evaluation Filed: 01/21/2020 2:46 PM Note Text: POST ANESTHESIA EVALUATION NOTE : 1990 Procedure Summary Date: 01/21/20 Room / Location: ID OR / ID OR Anesthesia Start: 1259 Anesthesia Stop: 1345 Procedure: LAPAROSCOPIC SALPINGECTOMY (Bilateral Abdomen quadrant lower) Diagnosis: Request for sterilization Surgeons: Juana Ramos Responsible Provider: Cj Ingram Anesthesia Type: general ASA Status: 2 Anesthesia Type: general Last vitals Vitals Value Taken Time BP 115/57 01/21/20 1415 Temp 36.8 ?C (98.2 ?F) 01/21/20 1424 HR SpO2 60 01/21/20 1415 Resp 26 01/21/20 1423 SpO2 98 % 01/21/20 1429 Vitals shown include unvalidated device data. Post Anesthesia Patient Status Patient Evaluation: bedside. Anticipated Disposition: phase 2 then home. Neurological Status: aware and responsive. Pulmonary Status: breathing comfortably on room air Airway Control: returned to baseline unsupported. Cardiovascular Status: stable. Pain Management: clinically adequate Postoperative Hydration: acceptable. Intraoperative Events: no significant anesthesia events Post Operative Nausea/Vomiting Status: no significant post operative nausea or vomiting Anesthetic Observations: no significant anesthetic observations Recommendation: continue current plan of care. SIGNATURE: Cj Ingram MD PATIENT NAME: Tara Arguelles DATE: January 21, 2020 TIME: 2:46 PM CSN: [id number] [facility] ANES PRE-OPon 01-21-2020 ANES PRE-OP HNO ID: [id number] Author: Cj Ingram Service: ? Author Type: Physician Type: Anesthesia Preprocedure Evaluation Filed: 01/21/2020 11:24 AM Note Text: ANESTHESIOLOGY DAY OF SURGERY NOTE : 1990 Procedure(s) (LRB): LAPAROSCOPIC SALPINGECTOMY (Bilateral) Surgeon(s): Juana Ramos Estimated body mass index is 28.12 kg/m? as calculated from the following: Height as of this encounter: 165.1 cm (5' 5). Weight as of this encounter: 76.7 kg (169 lb). Most recent hematocrit and potassium results: Hematocrit 43.4 04/30/2019 Potassium 4.2 04/30/2019 Relevant Problems No relevant active problems I - PHYSICAL EVALUATION AIRWAY Patient intubated: No. Mallampati: II. Neck ROM: full ROM without neurological symptoms. Mouth opening: adequate. Short neck: no. Thick neck: no DENTAL Dental findings: teeth intact. Additional exam findings: yes. CARDIOVASCULAR Normal cardiovascular observations. Rhythm: regular Rate: normal Additional comments: Normal S1 and S2. PULMONARY Additional comments: Normal vesicular breath sounds. II - ANESTHESIA PLAN ASA Score: 2 Anesthetic Plan: general The patient is not a current smoker. NPO Status: adequate Monitoring plan: standard ASA. Postoperative analgesic plan: multimodal analgesia. Anesthetic Risks, Benefits, Alternatives, Personnel Discussed. Consent obtained from: patient. Patient / Surrogate agrees to blood products: blood products not planned Significant changes in the patient condition since the History and Physical, not otherwise documented in primary service progress note: no. Potential Anesthesia issues that may suggest increased risk of complications or contraindication to planned procedure: none. Vitals Value Taken Time BP 120/68 01/21/20 1112 Pulse 77 01/21/20 1112 Resp 16 01/21/20 1112 Temp 36.3 ?C (97.3 ?F) 01/21/20 1112 SpO2 98 % 01/21/20 1112 Facility-Administered Medications as of 01/21/2020 Medication Dose Route Frequency - lidocaine 10 mg/mL (1 %) 1-2 mg injection (XYLOCAINE) 0.1-0.2 mL INTRADERMAL PRN - lactated ringers infusion 5-30 mL/hr INTRAVENOUS CONTINUOUS - celecoxib 400 mg cap(s) (CeleBREX) 400 mg ORAL Pre-Op Once - acetaminophen 1,000 mg tab(s) (TYLENOL) 1,000 mg ORAL Pre-Op Once - gabapentin 300 mg tab(s) (NEURONTIN) 300 mg ORAL Pre-Op Once Outpatient Medications as of 01/21/2020 Medication Sig - levonorgestrel (MIRENA) 20 mcg/24 hours (5 yrs) 52 mg IUD 1 Each by INTRAUTERINE route one time only. I have interviewed and examined the patient. I have reviewed the medical record and/or the pre-anesthesia evaluation, pertinent labs, and test results. This contains updated information obtained within 48 hours of Surgery/Procedure. SIGNATURE: Cj Ingram MD PATIENT NAME: Tara Arguelles DATE: January 21, 2020 TIME: 11:24 AM CSN: [id number] [facility] NURSING PROGon 01-21-2020 NURSING PROG HNO ID: [id number] Author: Steffanie (Rn) AG Bran Service: Nursing Author Type: Registered Nurse Type: Nursing Progress Note Filed: 01/21/2020 2:57 PM Note Text: POST OP LEARNING RESPONSE INSTRUCTION PROVIDED TO: Patient METHOD OF INSTRUCTION: Individual instruction PATIENT / FAMILY RESPONSE: Information received as demonstrated by interest and questions FOLLOW-UP PLAN: Patient instructed to call with any further issues SUPPLEMENTAL MATERIAL: None REFERRAL (RECOMMENDATION): None Electronically Signed By: Steffanie Bran RN In Department: [facility] SURGERY [facility] OPERATIVE NOon 01-21-2020 OPERATIVE NO HNO ID: [id number] Author: Juana Ramos Service: Gynecology Author Type: Physician Type: Operative Report Filed: 01/21/2020 1:38 PM Note Text: RD PROJECT MANAGER OPERATIVE/PROCEDURE REPORT LOG ID: [id number] Surgery/Procedure Date: 01/21/2020 Incision/Procedure Start Time: 1:20 PM Incision Close/Procedure End Time: 1:30 pm Surgeon(s)/Procedurali st(s) and Mechanics Handyman(s): Surgeon(s) and Role: * Junaa Ramos - Primary Informed Consent: Informed Consent obtained and on the chart Procedure: Laparoscopy Salpingectomy- bilateral Pre-Op/Pre-Procedure Diagnosis: Sterilization request Post-Op/Post-Procedure Diagnosis: Same as pre-op diagnosis Antibiotic: None Procedure Details: Patient was taken to the operating room where the sign-in and time out were completed. General anesthesia was induced and found to be adequate. Once anesthesia was found to be adequate, her arms were then tucked to the side, she was placed in dorsal lithotomy position her legs were placed in Yellowfin stirrups with careful attention not to hyperflex or hyperextend the knees or hips. SCDs were placed and turned on for DVT prophylaxis. Exam under anesthesia was performed. Patient was prepped and draped in the usual fashion. No bladder catherization was performed. A weighted speculum was placed in the patient's vagina with clear visualization of the cervix. The anterior lip of the cervix was grasped with a single tooth tenaculum. and the cervix was serially dilated to allow placement of a Rumy device was placed in the uterus and left in place throughout the laparoscopic portion of the procedure. Attention was turned to the abdomen with clean sterile gloves. Prior to making the incision the area was injected with 0.5 % marcaine. , A 5 mm intraumbilical incision was made with the knife. and Using a direct entry approach the 5 mm trochar was placed into the peritoneal cavity. The abdomen was insufflated with CO2 gas. The lower abdominal wall was transilluminated and an avascular site was selected in the Left lower abdominal quadrant. Under direction visualization the following trochars were placed LLQ 5 mm . Through these sites a 5 mm trochar and sleeve were inserted under direct visualization. The alligator grasper was placed through the abdominal wall in the LLQ appor x4 cm below the trochar to manipulate the tube. Findings: Uterus: Normal Right Ovary: Normal Left Ovary: Normal Right Fallopian Tube: Normal Left Fallopian Tube: Normal Posterior cul-de-sac: Normal Appendix: Not seen Liver: Not seen Other: n/a Additional techniques Include: SALPINGECTOMY: An atraumatic grasping forceps was passed through the Left port and used to elevate the Left tube away from the sidewall. Placing the LigaSure across the fallopian tube. The LigaSure was used to serially transect the fallopian tube from the mesosalpinx. The tube was then transected from the uterus. The same procedure was performed on the contralateral side and the specimens were removed through the ports. The pedicles were hemostatic All skin incisions were closed. The skin was closed with skin glue. The instruments were removed from the vagina. Sign-out was completed. IV Fluids: 500 cc Urine Output: 0 mL Estimated Blood Loss: 5 mL Specimens: Left fallopian tube and Right fallopian tube Implantable Devices: None Drains: None Complications: None A digital sweep of the vaginal canal was performed by Juana Ramos MD and it was ascertained that no instruments or other foreign bodies are retained within the cavity. Sponge, lap, and needle counts were correct times two and the patient was taken to the recovery room with stable vital signs after tolerating the procedure well. I/primary surgeon/proceduralist performed the procedure with assistance. SIGNATURE: Juana Ramos MD PATIENT NAME: Tara Arguelles DATE: January 21, 2020 TIME: 1:35 PM PAGER/CONTACT #: [facility] SURGICAL PATHOLOGYon 020 SURGICAL PATHOLOGY Specimen originated from [facility] Specimen #: [id number] Submitting Physician: Juana Ramos M.D. FINAL DIAGNOSIS Bilateral fallopian tubes, tubal ligation - Complete cross-sections. - Hydrosalpinx. BY/sed 01/25/2020 Al Prado M.D. Ph.D. (Electronic Signature) _ SPECIMEN SUBMITTED A: BILATERAL FALLOPIAN TUBES CLINICAL DATA DESIRES STERILIZATION, LMP: NA; LAPAROSCOPIC BILATERAL SALPINGECTOMY GROSS DESCRIPTION A. Received in formalin labeled as bilateral fallopian tubes are undesignated fimbriated fallopian tubes. Fallopian tube #1 measures 5.5 cm in length x 0.6 cm in diameter. The serosa is purple-busch, smooth and glistening. The fimbriated end has a normal villous appearance. The lumen is intact, demonstrating minimal hemorrhagic material. Fallopian tube #2 measures 5 cm in length x 0.5 cm in diameter. The serosa is purple-busch, smooth and glistening. The fimbriated end has a normal villous appearance. The lumen is pinpoint, intact and devoid of contents. Manager Product Marketing sections are submitted as follows: A1 fallopian tube #1 and bisected fimbriated end, A2 fallopian tube #2 and bisected fimbriated end. CANDIDA/glw 01/22/2020 Gross examination performed at [facility], [address] [place] [address] Date of Report: 01/26/2020 Date of Procedure: 01/21/2020 Date of Receipt: 01/22/2020 Submitted by: Juana Ramos M.D. Location: IDOR Diagnostic interpretation performed at [facility], [address] [place] [address]. [place] Number: [id number] [facility] 01-14-2020 [facility] Telephone (PREANME) TARA ARGUELLES ([id number]) 1990 F [facility] Date Time Provider Department 01/14/20 SAM VASQUEZ (RN) PREANME During your visit today, we recorded the following information about you: Allergies As of Date: 01/14/2020 Noted Allergy Reaction BEES 07/09/2005 Date Reviewed: 01/14/2020 Reviewed by: Juana Ramos - Fully Assessed Reason for Visit: Preparations For Surgery [898] Prescriptions as of 01/14/2020 Sig: OXYCODONE 5 MG TABLET Take 1 tablet by mouth every * MIRENA 20 MCG/24 HOURS (5 YRS* 1 Each by INTRAUTERINE route * VITAMIN,CALCIUM,MINE* Take 1 tablet by mouth once d* More... Problem List As Of Date 01/14/2020 Noted Resolved Patient requested diagnostic testing [Z01.89] 09/27/2011 12/11/2011 More... More... Adnexal mass [N94.89] 05/04/2015 Test anxiety [F41.8] 02/03/2016 Social anxiety disorder [F40.10] 01/28/2018 Encounter Status:Closed by PETEY VASQUEZ on 01/14/20 [facility] HOSPon 01-04-2020 HOSP Patient:Tara Arguelles MRN: Height:5' 5(1.651 m) Weight:174 lb (78.926 kg) Outpatient Medications as of 01/21/20: levonorgestrel (MIRENA) 20 mcg/24 hours (5 yrs) 52 mg IUD Admission/Clinic Administered Medications as of 01/21/20: lidocaine 10 mg/mL (1 %) 1-2 mg injection (XYLOCAINE) lactated ringers infusion scopolamine 1 mg over 3 days 1 Patch (TRANSDERM-SCOP) Problem List: Adnexal mass [N94.89] Test anxiety [F41.8] Social anxiety disorder [F40.10] Allergies: Bees Date Verified: 01/21/20 Lab Values No results within the last 30 days for the following basenames: K,HCT Progress Notes (MODULAR HOME CREW MEMBER WSTR MOB): Becky Arroyo RN 01/13/2020 8:28 AM Signed Patient is scheduled today for her Pre-op for surgery in [place] on 01/21/20. Patient is getting COVID testing done today because she is symptomatic. She should have her results by tomorrow. Will call with her results. Appointment for today cancelled. Becky Ramos MD 01/13/2020 9:41 AM Signed Noted. Thanks for the update. MD Becky Rivera RN 01/13/2020 9:48 AM Signed Please leave phone note open as a reminder to watch for COVID results tomorrow. If negative, patient will need Pre-op rescheduled. Becky Ramos MD 01/14/2020 8:28 AM Signed Covid test neg. Need to do preop and we can do surgery next week. Great news. MD Becky Rivera RN 01/14/2020 8:43 AM Signed Patient aware. Pre-op scheduled for today as patient is off work. Becky Arroyo RN Progress Notes (OCCUP HEALTH MAIN): Jen Gonzales PA-C 01/13/2020 7:28 AM Signed Spoke with patient - meets criteria for Covid-19 testing. Symptoms: DUMAS, cough, diarrhea, myalgia x 1 day; some reduced sense of taste (anterior tongue). Covid 19 test ordered; patient instructed to schedule test via [facility]. 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 Recommended to call back if onset of any symptoms or worsening of symptoms. Recommended caregiver to check my chart message for the link to self- schedule the covid test. Caregiver will continue using face mask, hand hygiene and social distancing as we discussed. Caregiver's PCP has been CC'd to receive test results. The employee/patient did not have any questions or concerns at the end of our conversation. Jen Gonzales PA-C Physician Mechanics Handyman Occupational Health [facility] COVID-19 (Novel Coronavirus): ? You are being tested for COVID-19. You will be notified within 2 days if your test comes back positive. ? While awaiting these results, please refer to the following recommendations from the CDC regarding isolation precautions: Steps to Follow: Isolation: You should follow the prevention steps below until a healthcare provider or local or state health department says you can return to your normal activities. Stay home except to get medical care ? People who are mildly ill with COVID-19 are able to isolate at home during their illness. ? You should restrict activities outside your home, except for getting medical care. ? Do not go to work, school, or public areas. Avoid using public transportation, ride-sharing, taxis, or public air travel. Separate yourself from other people and animals in your home People: As much as possible, you should stay in a specific room and away from other people in your home. Also, you should use a separate bathroom, if available. Animals: You should restrict contact with pets and other animals while you are sick with COVID-19, just like you would around other people. Although there have not been reports of pets or other animals becoming sick with COVID-19, it is still recommended that people sick with COVID-19 limit contact with animals until more information is known about the virus. When possible, have another member of your household care for your animals while you are sick. If you are sick with COVID-19, avoid contact with your pet, including petting, snuggling, being kissed or licked, and sharing food. If you must care for your pet or be around animals while you are sick, wash your hands before and after you interact with pets and wear a facemask. See COVID-19 and Animals for more information. Call ahead before visiting your doctor If you have a medical appointment, call the healthcare provider and tell them that you have or may have COVID-19. This will help the healthcare provider's office take steps to keep other people from getting infected or exposed. Personal Protection: You should wear a facemask when you are around other people (e.g., sharing a room or vehicle) or pets. If you are not able to wear a facemask (for example, because it causes trouble breathing), then people who live with you should not stay in the same room with you, or they should wear a facemask if they enter your room. Cover your coughs and sneezes ? Cover your mouth and nose with a tissue when you cough or sneeze. Throw used tissues in a lined trash can. Immediately wash your hands with soap and water for at least 20 seconds or, if soap and water are not available, clean your hands with an alcohol-based hand telecom network manager that contains at least 60% alcohol. ? Wash your hands often with soap and water for at least 20 seconds, especially after blowing your nose, coughing, or sneezing; going to the bathroom; and before eating or preparing food. If soap and water are not readily available, use an alcohol-based hand telecom network manager with at least 60% alcohol, covering all surfaces of your hands and rubbing them together until they feel dry. Soap and water are the best option if hands are visibly dirty. ? Avoid touching your eyes, nose, and mouth with unwashed hands. Avoid sharing personal household items ? You should not share dishes, drinking glasses, cups, eating utensils, towels, or bedding with other people or pets in your home. After using these items, they should be washed thoroughly with soap and water. Clean all High-touch surfaces everyday ? High touch surfaces include counters, tabletops, doorknobs, bathroom fixtures, toilets, phones, keyboards, tablets, and bedside tables. Use a household cleaning spray or wipe, according to the label instructions. Labels contain instructions for safe and effective use of the cleaning product including precautions you should take when applying the product, such as wearing gloves and making sure you have good ventilation during use of the product. Monitor your symptoms: ? Seek prompt medical attention if your illness is worsening (e.g., difficulty breathing). ? Before seeking care, call your healthcare provider and tell them that you have, or are being evaluated for, COVID-19. Put on a facemask before you enter the facility. These steps will help the healthcare provider's office to keep other people in the office or waiting room from getting infected or exposed. ? If you have a medical emergency and need to call 911, notify the dispatch personnel that you have, or are being evaluated for COVID-19. If possible, put on a facemask before emergency medical services arrive. Discontinuing home isolation: ? Patients with confirmed COVID-19 should remain under home isolation precautions until the risk of secondary transmission to others is thought to be low. The decision to discontinue home isolation precautions should be made on a [id number] basis, in consultation with healthcare providers and state and local health departments. Close contacts (household members, intimate partners, and caregivers) should follow these recommendations: ? Close contacts should monitor their health; they should call their healthcare provider right away if they develop symptoms suggestive of COVID-19 (e.g., fever, cough, shortness of breath) (see Interim [place] Guidance for Risk Assessment and Public Health Management of Persons with Potential Coronavirus Disease 2019 (COVID-19) Exposure in Travel-associated or Community Settings.) ? Make sure that you understand and can help the patient follow their healthcare provider's instructions for medication(s) and care. You should help the patient with basic needs in the home and provide support for getting groceries, prescriptions, and other personal needs. ? Monitor the patient's symptoms. If the patient is getting sicker, call their healthcare provider and tell them that the patient is being tested for COVID-19. This will help the healthcare provider's office take steps to keep other people in the office or waiting room from getting infected. Ask the healthcare provider to call the local or [facility] health department for additional guidance. If the patient has a medical emergency and you need to call 911, notify the dispatch personnel that the patient has, or is being evaluated for COVID-19. ? Household members should stay in another room or be from the patient as much as possible. Household members should use a separate bedroom and bathroom, if available. ? Prohibit visitors who do not have an essential need to be in the home. ? Make sure that shared spaces in the home have good air flow, such as by an air conditioner or an opened window, weather permitting. ? Perform hand hygiene frequently. Wash your hands often with soap and water for at least 20 seconds or use an alcohol-based hand telecom network manager that contains 60 to 95% alcohol, covering all surfaces of your hands and rubbing them together until they feel dry. Soap and water should be used preferentially if hands are visibly dirty. ? Avoid touching your eyes, nose, and mouth with unwashed hands. ? The patient should wear a facemask when around other people. If the patient is not able to wear a facemask (for example, because it causes trouble breathing), you, as the caregiver, should wear a mask when you are in the same room as the patient. ? Wear a disposable facemask and gloves when you touch or have contact with the patient's blood, stool, or body fluids, such as saliva, sputum, nasal mucus, vomit, urine. ? Throw out disposable facemasks and gloves after using them. Do not reuse. ? When removing personal protective equipment, first remove and dispose of gloves. Then, immediately clean your hands with soap and water or alcohol-based hand telecom network manager. Next, remove and dispose of facemask, and immediately clean your hands again with soap and water or alcohol-based hand telecom network manager. ? Avoid sharing household items with the patient. You should not share dishes, drinking glasses, cups, eating utensils, towels, bedding, or other items. After the patient uses these items, you should wash them thoroughly ? Wash laundry thoroughly. ? Immediately remove and wash clothes or bedding that have blood, stool, or body fluids on them. ? Wear disposable gloves while handling soiled items and keep soiled items away from your body. Clean your hands (with soap and water or an alcohol-based hand telecom network manager) immediately after removing your gloves. ? Read and follow directions on labels of laundry or clothing items and detergent. In general, using a normal laundry detergent according to washing machine instructions and dry thoroughly using the warmest temperatures recommended on the clothing label. ? Place all used disposable gloves, facemasks, and other contaminated items in a lined container before disposing of them with other household waste. Clean your hands (with soap and water or an alcohol-based hand telecom network manager) immediately after handling these items. Soap and water should be used preferentially if hands are visibly dirty. ? Discuss any additional questions with your state or local health department or healthcare provider. Additional information Home healthcare personnel should refer to Interim Infection Prevention and Control Recommendations for Patients with Known or Patients Under Investigation for Coronavirus Disease 2019 (COVID-19) in a Healthcare Setting. Close contact is defined as? a) being within approximately 6 feet (2 meters) of a COVID-19 case for a prolonged period of time; close contact can occur while caring for, living with, visiting, or sharing a health care waiting area or room with a COVID-19 case ? or ? b) having direct contact with infectious secretions of a COVID-19 case (e.g., being coughed on). Jen Gonzales PA-C Physician Mechanics Handyman Occupational Health [facility] Lab Report: Rapid Plasmin Re agin (RPR)on 03-01-2017 Reagin antibody presence NONREACTIVE Invalid Interpretation Code NONREACTIVE [facility] Lab Report: HIV Screen 4TH G EN W/Confirmon 02-27-2017 GE use only - for LinkLogic import when terms are not otherwise specified Non Reactive Invalid Interpretation Code Non Reactive [facility] Lab Report: Hepatitis B Surf mariana Agon 02-27-2017 BSA (Body Surface Area) Negative Invalid Interpretation Code Negative [facility] Lab Report: Rubella IgGon rubella virus antibody, IgG 80.5 [iU]/mL Invalid Interpretation Code [facility] Blood Bank: Type AND Screeno n 02-26-2017 GE use only - for LinkLogic import when terms are not otherwise specified Negative Normal [facility] Lab Report: CBC W/Diff, Auto matedon 02-26-2017 Basophils/100 leukocytes 0.1 % Invalid Interpretation Code 0-1 [facility] Eosinophils/100 leukocytes 1.6 % Invalid Interpretation Code 0-5 [facility] Erythrocytes (RBC) 4.03 10*6/uL Low [facility].2[facility] 35.3 % Low 37-47 [facility] Hemoglobin (HGB) 12.1 g/dL Invalid Interpretation Code 12.0-15.0 [facility] immature granulocytes, percentage of total cells, blood 0.300 % Invalid Interpretation Code 0.0-0.9 [facility] Lymphocytes 1.34 X10 3/UL Invalid Interpretation Code 0.83-4.51 [facility] Lymphocytes/100 leukocytes 17.5 % Low 19-41 [facility] MCH 30.0 pg Invalid Interpretation Code 27.0-32.0 [facility] MCHC 34.3 G/GL Invalid Interpretation Code 32-36 [facility] MCV 87.6 fL Invalid Interpretation Code 81-99 [facility] Monocytes/100 leukocytes 7.3 % Invalid Interpretation Code 0-10 [facility] neutrophil count, blood 5.6 X10 3/UL Invalid Interpretation Code 2.0-7.7 [facility] Neutrophils/100 leukocytes 73.2 % High 47-70 [facility] Platelets 242 10*3/mm3 Invalid Interpretation Code 150-450 [facility] [facility] PMV by Omid 10.0 fL Invalid Interpretation Code 6.2-12.0 [facility] RDW-CA 12.5 % Invalid Interpretation Code 11.6-14.6 [facility] red blood cell distribution width, size density 39.3 fL Invalid Interpretation Code 35.1-43.9 [facility] WBC (Leukocytes) 7.7 10*3/uL Invalid Interpretation Code 4.4-11.0 [facility] Office Visit: OB Routineon 1 03-30-2016 Documentation of current medications (procedure) Done Invalid Interpretation Code [facility] Tobacco smoking status NHIS Tobacco smoking status NHIS Invalid Interpretation Code [facility] Tobacco smoking status NHIS Never Invalid Interpretation Code [facility] Tobacco use CPHS Never smoker Invalid Interpretation Code [facility] Urine, glucose presence N Invalid Interpretation Code [facility] Urine, protein N Invalid Interpretation Code [facility] Office Visit: OB Routineon 1 Albumin Ql (U) N Invalid Interpretation Code [facility] crown rump length by ultrasound 9.6 mm Invalid Interpretation Code [facility] Documentation of current medications (procedure) Done Invalid Interpretation Code [facility] estimated date of confinement by sonogram 08/18/2017 Invalid Interpretation Code [facility] cardiac activity by sonography Yes Invalid Interpretation Code [facility] number by ultrasound 1 Invalid Interpretation Code [facility] gestational age by ultrasound 7W 0D Invalid Interpretation Code [facility] Glucose Test strip mass conc (U) N Invalid Interpretation Code [facility] OB ultrasound, gestational sac Yes Invalid Interpretation Code [facility] Protein mass conc Done Invalid Interpretation Code [facility] Tobacco smoking status NHIS Never smoker Invalid Interpretation Code [facility] Tobacco use CPHS Never smoker Invalid Interpretation Code [facility] Urine, glucose presence N Invalid Interpretation Code [facility] Urine, protein N Invalid Interpretation Code [facility] Office Visit: OB Initialon 1 Documentation of current medications (procedure) Done Invalid Interpretation Code [facility] Fall risk assessment No Invalid Interpretation Code [facility] Herpes Simplex Virus Genital no Invalid Interpretation Code [facility] Tobacco smoking status NHIS Never Invalid Interpretation Code [facility] Tobacco use CPHS Never smoker Invalid Interpretation Code [facility] Vital Signs Date Time Vital Sign Value Performing Clinician Faci lity 11-19-2024 10:11-0400 Body height 162.[address] Alon Erickson MD Work Phone: [facility] 11-19-2024 10:11-0400 Body mass index (BMI) [Ratio] 29 kg/m2 Dr. Alon Erickson MD Work Phone: [facility] 11-19-2024 10:11-0400 Body weight 76.[address] Alon Erickson MD Work Phone: [facility] 11-19-2024 10:11-0400 Diastolic blood pressure 71 mm[Hg] Dr. Alon Erickson MD Work Phone: [facility] 11-19-2024 10:11-0400 Systolic blood pressure 112 mm[Hg] Dr. Alon Erickson MD Work Phone: [facility] 08-31-2024 10:05-0400 Body temperature 98.1 [degF] Dr. Alon Erickson MD Work Phone: [facility] 08-31-2024 10:05-0400 Diastolic blood pressure 80 mm[Hg] Dr. Alon Erickson MD Work Phone: [facility] 08-31-2024 10:05-0400 Heart rate 61 /min Dr. Alon Erickson MD Work Phone: [facility] 08-31-2024 10:05-0400 Respiratory rate 16 /min Dr. Alon Erickson MD Work Phone: [facility] 08-31-2024 10:05-0400 SaO2% (BldA) [Mass fraction] 98 % Dr. Alon Erickson MD Work Phone: [facility] 08-31-2024 10:05-0400 Systolic blood pressure 120 mm[Hg] Dr. Alon Erickson MD Work Phone: [facility] 05-13-2024 10:42-0500 Body temperature 98.3 [degF] Dr. Alon Erickson MD Work Phone: [facility] 05-13-2024 10:42-0500 Diastolic blood pressure 80 mm[Hg] Dr. Alon Erickson MD Work Phone: [facility] 05-13-2024 10:42-0500 Heart rate 69 /min Dr. Alon Erickson MD Work Phone: [facility] 05-13-2024 10:42-0500 SaO2% (BldA) [Mass fraction] 99 % Dr. Alon Erickson MD Work Phone: [facility] 05-13-2024 10:42-0500 Systolic blood pressure 120 mm[Hg] Dr. Alon Erickson MD Work Phone: [facility] 05-28-2023 13:31-0400 Body temperature 97.5 [degF] [facility] 05-28-2023 13:31-0400 Diastolic blood pressure 72 mm[Hg] [facility] 05-28-2023 13:31-0400 Heart rate 74 /min [facility] 05-28-2023 13:31-0400 Respiratory rate 16 /min [facility] 05-28-2023 13:31-0400 SaO2% (BldA) [Mass fraction] 98 % [facility] 05-28-2023 13:31-0400 Systolic blood pressure 122 mm[Hg] [facility] 05-28-2023 12:23-0400 Body height 162.56 cm [facility] 05-28-2023 12:23-0400 Body mass index (BMI) [Ratio] 27.4 kg/m2 [facility] 05-28-2023 12:23-0400 Body weight 72.57 kg [facility] 01-28-2017 05:29-0500 BMI (Body Mass Index) 26.67 kg/m2 Sho Amezcua MD [facility] 01-28-2017 05:29-0500 BP Diastolic 70 mm[Hg] Sho Amezcua MD [facility] 01-28-2017 05:29-0500 BP Systolic 113 mm[Hg] Sho Amezcua MD [facility] 01-28-2017 05:29-0500 Weight 70.49 kg Sho Amezcua MD [facility] 12-31-2016 11:01-0400 BMI (Body Mass Index) 25.85 kg/m2 Sho Amezcua MD [facility] 12-31-2016 11:01-0400 Body Temperature 97.7 [degF] Sho Amezcua MD [facility] 12-31-2016 11:01-0400 BP Diastolic 61 mm[Hg] Sho Amezcua MD [facility] 12-31-2016 11:01-0400 BP Systolic 108 mm[Hg] Sho Amezcua MD [facility] 12-31-2016 11:01-0400 Pulse (Heart Rate) 71 /min Sho Amezcua MD [facility] 12-31-2016 11:-0400 Respiratory Rate 16 /min Sho Amezcua MD [facility] 12-31-2016 11:01-0400 Weight 68.31 kg Sho Amezcua MD [facility] 12-17-2016 15:17-0400 BMI (Body Mass Index) 25.57 kg/m2 Sho Amezcua MD [facility] 12-17-2016 15:17-0400 BP Diastolic 70 mm[Hg] Sho Amezcua MD [facility] 12-17-2016 15:17-0400 BP Systolic 125 mm[Hg] Sho Amezcua MD [facility] 12-17-2016 15:17-0400 Height 162.56 cm Sho Amezcua MD [facility] 12-17-2016 15:17-0400 Pulse (Heart Rate) 75 /min Sho Amezcua MD [facility] 12-17-2016 15:17-0400 Weight 67.58 kg Sho Amezcua MD [facility] 12-17-2016 15:17-0400 Weight 67.59 kg Sho Amezcua MD [facility] Encounters Encounter Date Encounter Type Care Provider Facility Start: 11-19-2024 End: 11-19-2024 Patient encounter procedure Kiana Natalia UTILIZATION REVIEW SPECIALIST-C -[facility] Work Phone: Start: 11-19-2024 End: 11-19-[address] Alon Erickson MD Work Phone: -[facility] Start: 08-31-2024 End: 08-31-[address] [facility] Work Phone: Start: 08-31-2024 End: 08-31-[address] Alon Erickson MD Work Phone: [facility] Work Phone: Start: 08-31-2024 End: 08-31-[address] [place]GE Facility:[facility] Start: 05-13-2024 End: 05-13-2024 Patient encounter procedure Bryan Franco UTILIZATION REVIEW SPECIALIST-[facility] Work Phone: Start: 05-13-2024 End: 05-13-2024 ambulatory Bryan Franco Facility:[facility] Start: 12-02-2023 End: 12-02-[address] [facility]GE Facility:[facility] Start: 05-28-2023 End: 05-28-2023 Emergency department patient visit [facility] Work Phone: Procedures Date Procedure Procedure Detail Performing Clinician Start: 08-31-2024 X-ray of foot, three or more views Dr. Alon Erickson MD Work Phone: Start: 01-28-2017 End: 01-28-2017 Routine OB Visit (Global) Sho yuen MD Work Phone: Start: 01-28-2017 End: 01-28-2017 Routine OB Visit (Global) Sho yuen MD Work Phone: Start: 12-31-2016 End: 12-31-2016 Routine OB Visit (Global) Sho yuen MD Work Phone: Start: 12-31-2016 End: 12-31-2016 Routine OB Visit (Global) Sho yuen MD Work Phone: Start: 12-17-2016 End: 12-19-2016 Routine OB Visit (Global) Sho yuen MD Work Phone: Start: 12-17-2016 End: 03-02-2017 *CBC with Differential Sho luna MD Work Phone: Start: 12-17-2016 End: 03-26-2017 *HEBSAG - Hep B Surface Antigen 6510 Sho Amezcua MD Work Phone: Start: 12-17-2016 End: 03-26-2017 *HIV antibody Sho Amezcua MD Work Phone: Start: 12-17-2016 End: 03-26-2017 Reagin antibody presence Sho augustin MD Work Phone: Start: 12-17-2016 End: 12-19-2016 Routine OB Visit (Global) Sho yuen MD Work Phone: Start: 12-17-2016 End: 03-26-2017 Rubella virus Ab [Units/volume] in Serum Sho Amezcua MD Work Phone: Plan of Treatment Date Care Activity Detail Author Start: 08-31-2024 Patient referral [facility] Work Phone: Start: 05-28-2023 [facility] Start: 05-28-2023 Hepatitis B surface antigen measurement [facility] Start: 05-28-2023 Hepatitis C antibody measurement [facility] Start: 01-28-2017 End: 01-28-2017 Appointment Appointment [facility] Start: 12-31-2016 End: 12-31-2016 Appointment Appointment [facility] Start: 12-17-2016 End: 12-19-2016 *CBC with Differential *CBC with Differential [facility] Start: 12-17-2016 End: 12-19-2016 *GC/Chlamydia *GC/Chlamydia [facility] Start: 12-17-2016 End: 12-19-2016 *HEBSAG - Hep B Surface Antigen 6510 *HEBSAG - Hep B Surface Antigen 6510 [facility] Start: 12-17-2016 End: 12-19-2016 *HIV antibody *HIV antibody [facility] Start: 12-17-2016 End: 12-19-2016 *TS Type and Screen *TS Type and Screen [facility] Start: 12-17-2016 End: 12-17-2016 *UA - Urinalysis w/o Micro *UA - Urinalysis w/o Micro [facility] Start: 12-17-2016 End: 12-19-2016 Reagin antibody presence *RPR [facility] Start: 12-17-2016 End: 12-19-2016 Rubella virus Ab [Units/volume] in Serum *Rubella Screen [facility] Start: 12-17-2016 End: 12-19-2016 Urine culture, bacteria *CUUR - Culture, Urine ([place] Count) [facility] Start: 12-17-2016 End: 12-19-2016 Us preg uterus after 1st trimest 1/ gestation US OB, >14 weeks [facility] Start: 12-17-2016 End: 03-02-2017 *CBC with Differential *CBC with Differential [facility] Start: 12-17-2016 End: 12-19-2016 *GC/Chlamydia *GC/Chlamydia [facility] Start: 12-17-2016 End: 03-26-2017 *HEBSAG - Hep B Surface Antigen 6510 *HEBSAG - Hep B Surface Antigen 6510 [facility] Start: 12-17-2016 End: 03-26-2017 *HIV antibody *HIV antibody [facility] Start: 12-17-2016 End: 12-19-2016 *TS Type and Screen *TS Type and Screen [facility] Start: 12-17-2016 End: 12-17-2016 *UA - Urinalysis w/o Micro *UA - Urinalysis w/o Micro [facility] Start: 12-17-2016 End: 12-19-2016 Ob us >/= 14 wks, sngl fetus US OB, >14 weeks [facility] Start: 12-17-2016 End: 03-26-2017 Reagin antibody presence *RPR [facility] Start: 12-17-2016 End: 03-26-2017 Rubella virus Ab [Units/volume] in Serum *Rubella Screen [facility] Start: 12-17-2016 End: 12-19-2016 Urine culture, bacteria *CUUR - Culture, Urine ([place] Count) [facility] Hepatitis B virus surface IgG Ab [Presence] in Serum [facility] HIV 1+2 Ab+HIV1 p24 Ag [Presence] in Serum or Plasma by Immunoassay [facility] Patient Education ED NEEDLE STIC K Health Care Worker [facility] Work Phone: Patient referral [facility] Work Phone: Immunizations Immunization Date Immunization Notes Care Provider Amirah topete 12-30-2023 influenza, seasonal, injectable, preservative free Dr. Alon Erickson MD Work Phone: [facility] 05-28-2023 tetanus toxoid, redu demetria diphtheria toxoid, and acellular pertussis vaccine, adsorbed [facility] 02-11-2023 influenza, injectabl e, quadrivalent, preservative free [facility] 01-24-2022 influenza, injectabl e, quadrivalent, preservative free [facility] 11-30-2020 influenza, injectabl e, quadrivalent, preservative free Dr. Alon Erickson MD Work Phone: [facility] 04-21-2020 Covid (Moderna) Dr. Florentin Erickson MD Work Phone: [facility] 03-24-2020 Covid (Moderna) Dr. Florentin Erickson MD Work Phone: [facility] 12-29-2019 influenza, injectabl e, quadrivalent, preservative free Dr. Alon Erickson MD Work Phone: [facility] 02-23-2019 tetanus toxoid, redu demetria diphtheria toxoid, and acellular pertussis vaccine, adsorbed Dr. Alon Erickson MD Work Phone: [facility] 09-16-2018 measles, mumps and rubella virus vaccine Dr. Alon Erickson MD Work Phone: [facility] 08-19-2018 measles, mumps and rubella virus vaccine Dr. Alon Erickson MD Work Phone: [facility] 06-18-2017 tetanus toxoid, redu demetria diphtheria toxoid, and acellular pertussis vaccine, adsorbed [facility] 09-25-2006 hepatitis B vaccine, pediatric or pediatric/adolescent dosage Dr. Alon Erickson MD Work Phone: [facility] 11-26-2005 hepatitis B vaccine, pediatric or pediatric/adolescent dosage Dr. Alon Erickson MD Work Phone: [facility] 10-15-2005 hepatitis B vaccine, pediatric or pediatric/adolescent dosage Dr. Alon Erickson MD Work Phone: [facility] Payers Date Payer Category Payer Unknown [id number] 2023 Self-pay [id number] Unknown [id number] Unknown MED [facility] [id number] Unknown [id number] [id number] [id number] Unknown [id number] [id number] [id number] Unknown [id number] [id number] [id number] Unknown [id number] [id number] [id number] Unknown [id number] [id number] [id number] Unknown [id number] [id number] [id number] Social History Date Type Detail Facility Start[facility]28[facility] Start: 1990 Sex Assigned At Female [facility] Start: 10-28-2023 [facility] Clinical Notes 09-23-2020 to 08-31-2024 Note Date & Type Note Facility 08-31-2024 Evaluation note Diagnosis Onset Date Resolution Displaced fracture of proximal phalanx of left lesser toe(s), initial encou acute August 31, 2024 9:20am [facility] Work Phone: 1(464) 452-217506-23-2025 Radiology Diagnostic study note [facility] Services [address] [place] [address] Foot min 3 Views MR#: [id number] Acct: [id number] Name: TARA ARGUELLES Rep #: [id number] : 1990 F 34 From: Ray Mccain MD PCP: Dr. Alon Erickson MD Status: R EG CLI Study:Foot min 3 Views Date of Exam: Exam# [id number] Ordering Dr: [facility] PROCEDURE: FOOT MIN 3 VIEWS 08/31/2024 REASON FOR EXAM: PAIN TECHNIQUE: FOOT MIN 3 VIEWS COMPARISON: None RAD/Foot min 3 Views IMPRESSION: An intra-articular mildly-comminuted Fracture of the distal portion of the left 5th proximal phalanx is seen. On lateral imaging, normal contour of the Achilles tendon is seen. Mild inferior calcaneal spurringis noted. No ankle joint effusion is evident. Minimal degenerative changes are seen of the 1st metatarsophalangeal joint, without hallux valgus or joint space narrowing identified. Reading Location: [place] [address] CC: Dr. Alon Erickson MD; JAZMYN Shay ~ Provider Network Analyst: Signed [facility]03-05-2025 Evaluation note* Diagnosis Onset Date Resolution Status Admit Date Viral illness acute May 13, 2024 10:40am Displaced fracture of proxim al phalanx of left lesser toe(s), initial encou acute August 31, 2024 9:20am [facility] Work Phone: 1(716) 370-651905-12-2022 NoteHNO ID: [id number] Author: Charlee Brush APRN.FINANCIAL AUDITOR Service: ? Author Type: Nurse Practitioner Type: Progress Notes Filed: 07/20/2021 10:04 AM Note Text: This Team Access Model visit is a virtual encounter. It required patient-provider interaction for the medical decision making as documented below. Patient agrees to the visit: Yes Patient Location: [place] CC: Patient presents with: Weight Problem HPI Tara Arguelles is a 31 year old female who is contacted today for a virtual visit. This is an established patient of Dr. Mj Collier, and myself. Adipex follow-up: Started on Adipex on 05/23/21. Beginning 3rd month. This is her first round ever being on Adipex. Tolerating well. Initial starting weight: 178 lbs Weight after month #1: 172 lbs. (lost 6 lbs) Weight after month #2: 165 lbs (additional 7 lbs lost, 13 lbs total) Current BMI: 27.04 Denies: abdominal pain, nausea, vomiting, diarrhea, fevers, constipation, headache, change in urination, lightheadedness, weakness, numbness or tingling to arms or legs, edema, palpitations, sleep disturbances, impairment of concentration/attention, difficulty with memory, speech or language problems (particularly word-finding difficulties). Exercise-- working out at [employer] about 3x/week with cardio and weight lifting. Is starting to run outside again with nice weather. Very active person at baseline but being in school is making it hard. Graduating tomorrow which should give her more time. ? Diet-- Eating healthy with numerous fruits and vegetables. Skips breakfast sometimes. REVIEW OF SYSTEMS See HPI. All other systems are negative. PAST MEDICAL HISTORY Diagnosis Date - FRACTURE WRIST 1 FALL - Social anxiety disorder 01/28/2018 - Test anxiety 02/03/2016 PAST SURGICAL HISTORY Procedure Laterality Date - DELIVERY ONLY 04/12/2012 , low transverse - SALPINGECTOMY ALLERGIES [facility] MEDICATIONS Phentermine HCl (ADIPEX-P) 37.5 mg tablet Take 1 tablet by mouth once daily for 30 days. Dx: dyslipidemia, BMI 28.19 Do not start before June 21, 2021. FAMILY HISTORY Problem Relation Age of Onset - other (melanoma) Mother - Diabetes Father - Arthritis Maternal Grandmother RHEUMATOID - other (IBS) Maternal Grandmother - Cancer Paternal Grandfather Lung Social History Tobacco Use - Smoking status: Never Smoker - Smokeless tobacco: Never Used Vaping Use - Vaping Use: Never used Substance Use Topics - Alcohol use: Yes Comment: Occasionally - Drug use: No EXAM: Deferred physical exam as visit was completed over the phone Patient is speaking in complete sentences without obvious respiratory distress or audible wheezing. Virtual visit completed using video, limited exam completed. GENERAL: alert and appropriate, in no distress, well-hydrated, well nourished and happy, smiling, interactive SKIN: no rash noted HEAD: normocephalic, no abnormality or lesion noted DATA REVIEWED: Most recent labs and imaging results. COVID-19 VACCINE(3 - Booster for Moderna series) due on 09/18/2020 DEPRESSION SCREENING due on 05/23/2022 PAP TESTING due on 05/30/2025 HPV TESTING due on 05/30/2025 DTAP,TDAP,TD(8 - Td or Tdap) due on 02/23/2029 INFLUENZA Completed HEPATITIS C SCREENING Completed HIV SCREENING Completed MENINGOCOCCAL CONJUGATE Aged Out ASSESSMENT/PLAN: 1. Overweight (BMI 25.0-29.9) - ICD9: 278.02, ICD10: E66.3 (primary diagnosis) Weight decreasing - Behavioral intervention, - Pharmacological intervention, - Eat well program and - Continue current medications - Continue current diet. - Reduce sugary drinks of artificial juices and sodas and replace with water and low calorie Crystal Light. - Healthy Snack alternatives have been discussed and will attempt more fruits and vegetables. - encouraged 3 meals a day - Continue exercise routine and/or meaningful activity for 20 minutes at least 3 times a day - reviewed SE, medication expectations, required weight loss of 5%, required monthly monitoring and medication duration of use (3 months on 6 months off) - PHENTERMINE 37.5 MG TABLET 2. Encounter for weight management - ICD9: V65.49, ICD10: Z76.89 See above. - PHENTERMINE 37.5 MG TABLET 3. Hypertriglyceridemia - ICD9: 272.1, ICD10: E78.1 - PHENTERMINE 37.5 MG TABLET 4. Screening for thyroid disorder - ICD9: V77.0, ICD10: Z13.29 - TSH BLD - T3 BLD - T4 FREE/FREE THYROX Follow up as needed. Prescription instructions reviewed with patient as applicable. Potential red flag symptoms discussed with the patient. Reviewed appropriate action plan to take if red flag symptoms occur. Patient agreeable to treatment plan. During this patient visit I have spent approximately 15 minutes in counseling regarding weight loss, exercise, treatment options and medications. Charlee Brush APRN.[facility]04-01-2022 NoteHNO ID: [id number] Author: Charlee Brush APRN.JOAO Service: ? Author Type: Nurse Practitioner Type: Progress Notes Filed: 06/09/2021 1:14 PM Note Text: This Team Access Model visit is a virtual encounter. It required patient-provider interaction for the medical decision making as documented below. Patient agrees to the visit: Yes Patient Location: [place] CC: Patient presents with: Medication Follow-up HPI Tara Arguelles is a 31 year old female who is contacted today for a virtual visit. This is an established patient of Dr. Mj Collier DO. Tara is a new patient to me today. Concerns today.. Adipex follow-up: Started on Adipex on 05/23/21. This is her first time on Adipex. Initial starting weight: 178 lbs Weight after month #1 (only been 2 weeks): 172 lbs. weight loss of 6 lbs currently. Denies: abdominal pain, nausea, vomiting, diarrhea, fevers, constipation, headache, change in urination, lightheadedness, weakness, numbness or tingling to arms or legs, edema, palpitations, sleep disturbances, impairment of concentration/attention, difficulty with memory, speech or language problems (particularly word-finding difficulties). Reports: dry mouth. Trying to chug lots of water to help. 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 Has spent lots of time sitting at desk to study. Has still been working out at [employer] about 3x/week with cardio and weight lifting. Is starting to run outside again with nice weather. Very active person at baseline but being in school is making it hard. Diet-- Was encouraged by Dr. Collier at last visit to get 100 grams of protein per day. Patient reports struggling to hit this number d/t appetite suppression of Adipex but has been trying to to get to this as her goal. Trying not to skip any meals but hard to get breakfast in some days d/t not being hungry. Eating healthy with numerous fruits and vegetables. Feels anxiety is well controlled -- especially under the circumstances of graduating from program in July. REVIEW OF SYSTEMS General: no fevers, no chills, no night sweats, no recurrent infections, no change in appetite, no change in energy and no significant changes in weight HEENT: no frequent or significant headaches, no changes in hearing, no visual changes, no nose bleeds, no sinus or nasal problems Neck: no lumps, no pain and no swelling Respiratory: no cough, no wheezing, no shortness of breath, no hemoptysis Cardiovascular: no chest pain, no chest pressure, no palpitations and no swelling GI: No nausea, vomiting, or diarrhea : No history of dysuria, frequency or [address] PROJECT MANAGER: Negative for abnormal vaginal bleeding, abnormal vaginal discharge Musculoskeletal: Negative for joint pain or swelling, back pain or muscle pain Skin: Negative for lesions, rash, and itching Psych: Negative for sleep disturbance, mood disorder and recent psychosocial stressors Hematologic/Lymph: Negative for prolonged bleeding, bruising easily or swollen nodes Endocrine: no fatigue, no weight gain, no weight loss, no hair loss, no dry skin, no cold intolerance, no heat intolerance, no neck pain/pressure, no polyuria, no polyphagia and no polydipsia Neurologic: No headache, weakness, numbness, tingling, neck stiffness, tremor, vertigo, dizziness, memory loss, syncope. PAST MEDICAL HISTORY Diagnosis Date - FRACTURE WRIST 1 FALL - Social anxiety disorder 01/28/2018 - Test anxiety 02/03/2016 PAST SURGICAL HISTORY Procedure Laterality Date - DELIVERY ONLY 04/12/2012 , low transverse - SALPINGECTOMY ALLERGIES Bees MEDICATIONS Phentermine HCl (ADIPEX-P) 37.5 mg tablet Take 1 tablet by mouth once daily for 30 days. Dx: dyslipidemia, BMI 29.17 sertraline (ZOLOFT) 50 mg tablet Take 1 tablet by mouth once daily. FAMILY HISTORY Problem Relation Age of Onset - other (melanoma) Mother - Diabetes Father - Arthritis Maternal Grandmother RHEUMATOID - other (IBS) Maternal Grandmother - Cancer Paternal Grandfather Lung Social History Tobacco Use - Smoking status: Never Smoker - Smokeless tobacco: Never Used Vaping Use - Vaping Use: Never used Substance Use Topics - Alcohol use: Yes Comment: Occasionally - Drug use: No EXAM: Deferred physical exam as visit was completed over the phone Patient is speaking in complete sentences without obvious respiratory distress or audible wheezing. Virtual visit completed using video, limited exam completed. GENERAL: alert and appropriate, in no distress, well-hydrated, well nourished and happy, smiling, interactive SKIN: no rash noted HEAD: normocephalic, no abnormality or lesion noted COVID-19 VACCINE(3 - Booster for Moderna series) due on 09/18/2020 DEPRESSION SCREENING due on 05/23/2022 PAP TESTING due on 05/30/2025 HPV TESTING due on 05/30/2025 DTAP,TDAP,TD(8 - Td or Tdap) due on 02/24/20 (more content not included)... [facility]03-16-2022 NoteHNO ID: [id number] Author: Mj Collier, DO Service: ? Author Type: Physician Type: Progress Notes Filed: 05/24/2021 7:00 AM Note Text: CC: Tara Arguelles is a 30 year old female who presents to the office for weight concerns HPI: Overall is doing well. 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 She has had a lot of sitting/studying over the last 1-2 years since she started school thus not exercising as much as what she would like, is now getting back into running. Overall does eat a very healthy diet with vegetables and proteins and fruits. She is interested in starting weight loss medication PAST MEDICAL HISTORY Diagnosis Date - FRACTURE WRIST 1 FALL - Social anxiety disorder 01/28/2018 - Test anxiety 02/03/2016 PAST SURGICAL HISTORY Procedure Laterality Date - DELIVERY ONLY 04/12/2012 , low transverse - SALPINGECTOMY Current Outpatient Medications Medication Sig - Phentermine HCl (ADIPEX-P) 37.5 mg tablet Take 1 tablet by mouth once daily for 30 days. Dx: dyslipidemia, BMI 29.17 - sertraline (ZOLOFT) 50 mg tablet Take 1 tablet by mouth once daily. (Patient not taking: Reported on 03/10/2021 ) No current facility-administered medications for this visit. ALLERGIES Allergen Reactions - Bees Social History Tobacco Use - Smoking status: Never Smoker - Smokeless tobacco: Never Used Vaping Use - Vaping Use: Never used Substance Use Topics - Alcohol use: Yes Comment: Occasionally - Drug use: No ROS: See HPI PE: BP 120/60 Pulse 76 Temp (Src) 97.5 (Left Tympanic) Resp 16 Wt 178 lb (80.7kg) LMP 09/09/2020 Gen: AANDOX3, NAD, non-toxic appearing HEENT: PERRLA, EOMs intact b/l, nares without drainage, pharynx without erythema, exudate, lesions, or drainage. Uvula midline. Neck: No LAD, no thyromegaly, no meningismus. CV: RRR, no murmur Lungs: CTA b/l, no wheezing Skin: No rashes, lesions, or wounds on exposed skin. No edema ASSESSMENT/PLAN: 1. Hypertriglyceridemia - ICD9: 272.1, ICD10: E78.1 (primary diagnosis) - suboptimal control - Encouraged following a low fat, low cholesterol diet. - Discussed the benefits of regular aerobic exercise and weight loss. 2. Overweight (BMI 25.0-29.9) - ICD9: 278.02, ICD10: E66.3 Weight increasing - Behavioral intervention, - Eat well program and - Add Phentermine - PHENTERMINE 37.5 MG TABLET - d/w her regarding healthy diet and exercise importance Mj Collier DO Return if no improvement. Follow up with Mj Collier DO. To ER if develops chest pain, shortness of breath Discussed risks, benefits, alternatives, and potential side effects of medications. Patient/Guardian expressed understanding and agreed with the plan. See patient instructions. Mj Collier DO [address] [place] [address] [facility] NoteHNO ID: [id number] Author: Lui Davis LPN Service: ? Author Type: ? Type: Progress Notes Filed: 05/24/2021 7:00 AM Note Text: THE LAST 2 WEEKS, HAVE YOU BEEN BOTHERED BY ANY OF THE FOLLOWING? - Little interest or pleasure in doing things 0 NOT AT ALL Feeling down, depressed, or hopeless 0 Trouble falling or staying asleep, or sleeping too much 0 Feeling tired or having little energy 0 Poor appetite or overeating 0 Feeling bad yourself-you are a failure or have let yourself or others 0 Trouble concentrating, like reading the paper or watching TV 0 Moving/speaking slowly (others notice) OR being more fidgety/restless 0 Thoughts that you would be better off or of hurting yourself 0 PHQ TOTAL SCORE = 0 PHQ problems effect on difficulty of work, home, and social activity: 1 - NOT DIFFICULT AT ALLAd[facility]12[facility]-2021 NoteHNO ID: [id number] Author: Madeline Dey APRN.FINANCIAL AUDITOR Service: ? Author Type: Nurse Practitioner Type: Progress Notes Filed: 03/10/2021 10:22 AM Note Text: Subjective HPI HPI Tara Arguelles is a 30 year old female who presents today for CC of sore throat, cough, congestion. This started 1 day ago. Has tried otc medication for relief. Symptoms are worsened by nothing. Risk factors sick exposures at work. Denies cp/sob, diarrhea, loss taste/smell, diarrhea. Is vaccinated for coivd. Nonsmoker. Had positive home test for covid few months ago. .Patient presents with: Chest Congestion: cough, sore throat x 1 day PAST MEDICAL HISTORY Diagnosis Date - FRACTURE WRIST 1 FALL - Social anxiety disorder 01/28/2018 - Test anxiety 02/03/2016 PAST SURGICAL HISTORY Procedure Laterality Date - DELIVERY ONLY 04/12/2012 , low transverse - SALPINGECTOMY ALLERGIES Bees MEDICATIONS sertraline (ZOLOFT) 50 mg tablet Take 1 tablet by mouth once daily. FAMILY HISTORY Problem Relation Age of Onset - other (melanoma) Mother - Diabetes Father - Arthritis Maternal Grandmother RHEUMATOID - other (IBS) Maternal Grandmother - Cancer Paternal Grandfather Lung Social History Tobacco Use - Smoking status: Never Smoker - Smokeless tobacco: Never Used Vaping Use - Vaping Use: Never used Substance Use Topics - Alcohol use: Yes Comment: Occasionally - Drug use: No ROS Objective Blood pressure 122/74, pulse 97, temperature 36.7 ?C (98.1 ?F), resp. rate 16, weight 81.6 kg (180 lb), last menstrual period 09/09/2020, SpO2 99 %. Physical Exam Constitutional: General: She is not in acute distress. Appearance: She is not toxic-appearing or diaphoretic. HENT: Head: Normocephalic and atraumatic. Right Ear: Hearing, tympanic membrane, ear canal and external ear normal. Left Ear: Hearing, tympanic membrane, ear canal and external ear normal. Nose: Nose normal. Mouth/Throat: Pharynx: Uvula midline. Oropharyngeal exudate and posterior oropharyngeal erythema present. No pharyngeal swelling or uvula swelling. Eyes: General: Lids are normal. No scleral icterus. Right eye: No discharge. Left eye: No discharge. Conjunctiva/sclera: Conjunctivae normal. Pupils: Pupils are equal, round, and reactive to light. Neck: Trachea: Trachea normal. Cardiovascular: Rate and Rhythm: Normal rate and regular rhythm. Heart sounds: Normal heart sounds. Pulmonary: Effort: Pulmonary effort is normal. Breath sounds: Normal breath sounds. Musculoskeletal: Cervical back: Normal range of motion and neck supple. Lymphadenopathy: Cervical: No cervical adenopathy. Right cervical: No superficial cervical adenopathy. Left cervical: No superficial cervical adenopathy. Skin: Findings: No rash. Neurological: Mental Status: She is alert and oriented to person, place, and time. ASSESSMENT/PLAN: 1. Suspected COVID-19 virus infection - ICD9: V01.79, ICD10: Z20.822 (primary diagnosis) Please notify that covid testing negative. Continue with plan of care as discussed during visit. 2. Sore throat - ICD9: 462, ICD10: J02.9 - suspect viral - Alere Strep Test negative, no culture pending - Discussed supportive care treatment with fluids, rest and analgesia. - The patient should follow up in 3-5 days if symptoms persist or worsen - Call back if drooling, increased temperature, symptoms of dehydration and/or still sick in one week - STREP A MOLECULAR (POC) - CAREGIVER COVID19 - PREDNISONE 20 MG TABLET Agrees to plan Madeline Dey APRN.[facility]12-17-2021 NoteHNO ID: [id number] Author: Leonel Heller Population Health Navigator Service: ? Author Type: ? Type: Progress Notes Filed: 02/24/2021 2:38 PM Note Text: POPULATION HEALTH NAVIGATION OUTREACH Action/FYI Updated pcp field Contact made with patient or family member? NO Pt identified by name and : NO Outreach Outcome/Action PCP field updated Reason for Outreach Attribution: Provider Off-boarding Payer: Payor: [facility] / Plan: P NON STAFF / Product Type: *No Product type* / Care Gap Reviewed:: Reminder: Reminder note to check Health Maintenance for items below Health Maintenance items due: DEPRESSION SCREENING due on 11/28/2019 COVID-19 VACCINE(3 - Booster for Moderna series) due on 10/19/2020 Advanced Directives Completed: Have you ever planned for future healthcare decisions with a power of office systems technology instructor, living will, or advance directives? No. Please bring a copy to your next appointment or email to [email or web address] Referrals: N/A Message Sent to Practice: NO Navigation Signature: Leonel Heller Population Health Navigator February 24, 2021 2:37 [facility]12-17-2021 NotePatient Outreach (NETNAV) TARA ARGUELLES ([id number]) 1990 F [facility] Date Time Provider Department 02/24/21 LEONEL HELLER During your visit today, we recorded the following information about you: Leonel Heller Population Health Navigator 02/24/2021 2:38 PM Signed POPULATION HEALTH NAVIGATION OUTREACH Action/FYI Updated pcp field Contact made with patient or family member? NO Pt identified by name and : NO Outreach Outcome/Action PCP field updated Reason for Outreach Attribution: Provider Off-boarding Payer: Payor: [facility] / Plan: [facility] NON STAFF / Product Type: *No Product type* / Care Gap Reviewed:: Reminder: Reminder note to check Health Maintenance for items below Health Maintenance items due: DEPRESSION SCREENING due on 11/28/2019 COVID-19 VACCINE(3 - Booster for Moderna series) due on 10/19/2020 Advanced Directives Completed: Have you ever planned for future healthcare decisions with a power of office systems technology instructor, living will, or advance directives? No. Please bring a copy to your next appointment or email to [email or web address] Referrals: N/A Message Sent to Practice: NO Navigation Signature: Leonel Heller [facility] Navigator February 24, 2021 2:37 PM Allergies As of Date: 02/24/2021 Noted Allergy Reaction BEES 07/09/2005 Date Reviewed: 09/23/2020 Reviewed by: Doris Dean APRN.CNM - Fully Assessed Reason for Visit: [facility] Navigation Outreach [[id number]] Cmt: Offboarding Prescriptions as of 02/24/2021 - sertraline (ZOLOFT) 50 mg tablet Take 1 tablet by mouth once daily. 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 Author Type: Park Aide Type: Progress Notes Filed: 09/23/2020 2:41 PM Note Text: Political Science Professor Visit 09/23/2020 1:59 PM CC: STD screening HPI: Tara Arguelles is a 30 year old woman here for STD screening. Just recently discovered had an affair. Denies any abnormal discharge, odor, itching, burning or pain Any known exposure? Unsure Vaginal discharge? No. Contraception: tubal ligation ROS: Denies fevers, pelvic pain, abnormal vaginal bleeding. O: BP 118/66 Wt 160 lb (72.6 kg) LMP 09/09/2020 (Approximate) BMI 26.22 kg/m? Gen: NAD SSE: normal cervix and vagina with physiological discharge present. A/P: 30 year old woman requesting STD screening. Increased risk for STDs due in infidelity of - GC/Chlamydia, Trich,HIV, Hepatitis B AND C and Syphilis - will notify patient of abnormal results. - discussed condom use for STD prevention. Follow up 1 year for annual heat treat puller exam or sooner as needed. Greater than 50% of this 30 minute visit was spent counseling the patient and coordinating care. Doris Dean APRN.[facility] noteNo assessment information availableWPremier Health [facility] Work Phone: Summary Purpose Family History No Family History Records Found Relationship Condition Age at Onset Recorded Date/T janet father Diabetes mellitus Unknown mother Hypertension Unknown Advance Directives No Advanced Directives Records Found Advance Directive Response Recorded Date/ Time Living Will No May 28, 2023 12:36pm Power of Set Up Mechanic [employer]ading Machines No May 27 12:36pm Procedure Findings Note HNO ID: [id number] Author: Della Soni) Sherie Service: ? Author Type: Nurse Transaction Advisory Services Manager Type: Anesthesia Procedure Notes Filed: 01/21/2020 1:14 PM Note Text: ANESTHESIOLOGY PROCEDURE NOTE Airway General Information Procedure Start Time/Medication Administration: 01/21/2020 1:04 PM Patient location during procedure: OR Patient identity confirmed: arm band Staffing Performed by: BRANNON Indications and Patient Condition Preoxygenated: yes Indications for airway management: anesthesia Method: asleep Final Airway Details Final airway type: endotracheal airway Final Endotracheal Airway: ETT Cuffed: yes Successful intubation technique: direct laryngoscopy Endotracheal tube insertion site: oral Blade: Paula Blade size: #3 ETT size (mm): 7.0 Measured from: gums Measurement (cm): 21 Cormack-Lehane Classification: grade IIa - partial view of glottis Number of attempts at approach: 1 SIGNATURE: Aleksandra Rehman APRN.ICE RINK ATTENDANT PATIENT NAME: Tara Arguelles DATE: January 21, 2020 TIME: 1 (more content not included)... 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 COVID/ [facility] May 13, 2024 10:4 4am CONCERN FOR BROKEN L PINKY TOE August 9:20am EORDER August 31, 2024 9:54 am Reason for Visit Admit Date Viral illness May 13, 2024 10:4 0am Displaced fracture of proxim al phalanx of left lesser toe(s), initial encou August 31, 2024 9:20am Chief Complaint Admit Date CONCERN FOR BROKEN L PINKY TOE August 9:20am EORDER August 31, 2024 9:54 am BC Consult *COPAY $November 19 10:02am Reason for Visit Admit Date Displaced fracture of proxim al phalanx of left lesser toe(s), initial encou August 31, 2024 9:20am Additional Source Comments INFORMATION SOURCE (unrecogn ized section and content) DATE CREATED AUTHOR 01/27/2020 [facility] DATE CREATED AUTHOR AUTHOR'S ORGANIZ ATION 07/22/2021 [facility] DATE CREATED AUTHOR AUTHOR'S ORGANIZ ATION 11/21/2024 [facility] Care Teams (unrecognized sec tion and content) Team Status: Active Member Role Status Dates Dr. Gallo Chacko III, MD Family Provider Active No Primary Care Physician Primary Care Provider Active Team Status: Inactive Member Role Status Dates No Primary Care Physician Primary Care Provider Active Dr. Henry Rehman DO Emergency Provider Active Team Status: Active Member Role Status Dates Dr. Gallo Chacko III, MD Family Provider Active Dr. Alon Erickson MD Primary Care Provider Active Team Status: Inactive Member Role Status Dates Dr. Alon Erickson MD Primary Care Provider Active Start: May 13, 2024 End: May 13, 2024 Dr. Alon Erickson MD Referring Provider Active Start: May 13, 2024 End: May 13, 2024 SUSHMA Jean Attending Provider Active Star t: May 13, 2024 End: May 13, 2024 Team Status: Inactive Member Role Status Dates Dr. Alon Erickson MD Primary Care Provider Active Start: August 31, 2024 End: August 31, 2024 Dr. Alon Erickson MD Referring Provider Active Start: August 31, 2024 End: August 31, 2024 Lane ELDRIDGE PA Attending Provider Active Start: August 31, 2024 End: August 31, 2024 Team Status: Active Member Role Status Dates Dr. Alon Erickson MD Primary Care Provider Active Start: August 31, 2024 [address] ELDRIDGE PA Attending Provider Active Start: August 31, 2024 Lane ELDRIDGE PA Referring Provider Active Start: August 31, 2024 Team Status: Inactive Member Role Status Dates Dr. Alon Erickson MD Primary Care Provider Active Start: August 31, 2024 End: August 31, 2024 [address] ELDRIDGE PA Attending Provider Active Start: August 31, 2024 End: August 31, 2024 Lane ELDRIDGE, PA Referring Provider Active Start: August 31, 2024 End: August 31, 2024 Team Status: Active Member Role/Relationship Status Dates Dr. Gallo Chacko III, MD Family Provider Active Dr. Alon Erickson MD Primary Care Provider Active Team Status: Inactive Member Role/Relationship Status Dates Dr. Alon Erickson MD Primary Care Provider Active Start: August 31, 2024 End: August 31, 2024 Dr. Alon Erickson MD Referring Provider Active Start: August 31, 2024 End: August 31, 2024 [address] ELDRIDGE PA Attending Provider Active Start: August 31, 2024 End: August 31, 2024 Team Status: Inactive Member Role/Relationship Status Dates Dr. Alon Erickson MD Primary Care Provider Active Start: August 31, 2024 End: August 31, 2024 [address] ELDRIDGE PA Attending Provider Active Start: August 31, 2024 End: August 31, 2024 Lane ELDRIDGE PA Referring Provider Active Start: August 31, 2024 End: August 31, 2024 Team Status: Inactive Member Role/Relationship Status Dates Dr. Alon Erickson MD Primary Care Provider Active Start: November 19, 2024 End: November 19, 2024 Dr. Alon Erickson MD Referring Provider Active Start: November 19, 2024 End: November 19, 2024 SUSHMA Adkins Attending Provider Active Start: November 19, 2024 End: November 19, 2024 Goals (unrecognized section and content) Goals may be documented in a n alternate sectionGoals may be documented in an alternate sectionGoals may be documented in an alternate sectionGoals may be documented in an alternate section FOR RECORDS PERTAINING TO PATIENTS WHO ARE OR HAVE BEEN ENROLLED IN A CHEMICAL DEPENDENCY/SUBSTANCEABUSE PROGRAM, SOME INFORMATION MAY BE OMITTED. This clinical summary was aggregated from multiple sources. Caution should be exercised in using it in the provision of clinical care. This summary normalizes information from multiple sources, and as a consequence, information in this document may materially change the coding, format and clinical context of patient data. In addition, data may be omitted in some cases. CLINICAL DECISIONS SHOULD BE BASED ON THE PRIMARY CLINICAL RECORDS. [facility] [employer] [facility]. provides no warranty or guarantee of the accuracy or completeness of information in this document.
[2024-11-26 09:41] LABS: AST(SGOT) 19 U/L (<=31); Alanine Aminotransfer ALT/SGPT 15 U/L (<=34); Albumin, Serum 4.2 g/dL (3.5-5.0); Alkaline Phosphatase 79 U/L (35-104); Anion Gap 11 (5-15); BUN 12 mg/dL (4-19); BUN/Creat Ratio 17.2 RATIO (10-20); Calcium,Total 9.3 mg/dL (7.6-11.0); Carbon Dioxide 23.4 mmol/L (21.0-32.0); Chloride 102 mmol/L (98-108); Cholesterol 178 mg/dL (<=200); Follicle Stimulating Hormone 5.0 mIU/mL; Globulin 3.2 g/dL (2.2-4.2); Glucose 92 mg/dL (70-99); Low Density Lipoprotein Calc. 86 mg/dL; Potassium 4.6 mmol/L (3.3-5.1); Triglycerides 126 mg/dL; Very Low Density Lipoprotein 25 mg/dL (5-40); Vitamin D,25 Hydroxy 35.6 ng/mL (30-100); cholesterol:hdl ratio screen 2.67
== END | disposition home or self-care (01) ==
LOC: LAB 06:54
PROVIDERS: PCP Internal Medicine; Referring Provider Nurse Practitioner Family; Visit Provider Nurse Practitioner Family
DX: R53.83 Other fatigue (principal)
CPT/HCPCS: 36415; 80053; 80061; 82306; 82670; 83001; 84439; 84443

== ENCOUNTER → 2024-12-03 | Outpatient (CLI) | payer OTHER, SELFPAY ==
--- OUTSIDE RECORDS SUMMARY | 2024-12-03 13:12 | XMS RPT_ITS | CCD ---
Author Organization [facility] Care Team Providers Care Shop Steward Name Role Phone Clarkson GENERAL LABORER, Kiana Wray Unavailable Goldie FLETCHER, Sho Oropeza Unavailable Manisha Campoverde Unavailable Unavailable Georgina FLETCHER, Dr. Chi Primary Care Provider Dr. Alon Erickson MD Referring Provider Bryan Campuzano Attending Provider Lane Mead Attending Provider Lane Mead Referring Provider Dr. Alon Erickson MD Primary Care Provider Dr. Alon Erickson MD Referring Provider Kiana Hairston Attending Provider Oleghe, Efewongbe Referring Unavailable Oleghe, Efewongbe Primary Care Unavailable Kiana Fisher Attending Unavailable Oleghe, Efewongbe Referring Unavailable Oleghe, Efewongbe Primary Care Unavailable Moomadebbi, Bryan Attending Unavailable Lane Mead Attending Unavailable Lane Mead Referring Unavailable Oleghe, Efewongbe Primary Care Unavailable Kiana Fisher Referring Unavailable Oleghe, Efewongbe Primary Care Unavailable Kiana Fisher Attending Unavailable Moomaw, Bryan Attending Unavailable Oleghe, Efewongbe Referring Unavailable Oleghe, Efewongbe Primary Care Unavailable Lane Mead Attending Unavailable Oleghe, Efewongbe Referring Unavailable Oleghe, Efewongbe Primary Care Unavailable Oleghe, Efewongbe Referring [facility] Unavailable Kiana Fisher Attending Unavailable [facility] Primary Care Unavailable Lane Mead Attending Unavailable [facility] Referring Unavailable Allergies Allergy Classification Reported Allergen(s) Allergy Type Date of Onset Reaction(s) Facility (4 sources) venom-wasp Allergy to substance 05-28-2023 Anaphylaxis [facility] (1 source) venom-wasp Drug allergy (disorder) 11-19-2024 [facility] Repository Medications Current Medications Medication Drug [...] then 1 tab x 4 days AZITHROMYCIN [id number] Sho Amezcua MD cephalexin 500 mg oral [...] {tbl} PO DAILY April 25, 2022 1:00am Prenat.Vits,Oh,Vbd-Egdf-Uea ic ( Vitamin) tablet (4 sources) Start: 02-26-2017 End: 09-26-2017 Prenat.Vits,Oh,Ebw-Wstu-Ajl ic ( Vitamin) tablet Discontinued 1 {tbl} PO daily February 26, 2017 1:00am September 26, 2017 2:23pm Start: 02-26-2017 End: 09-26-2017 take 1 tablet by mouth once daily Prenat.Vits,Oh,Cdv-Mhqa-Ldgzf ( Vitamin) tablet Discontinued 1 TABLET PO daily February 26, 2017 1:00am September 26, 2017 2:23pm VIT-FE CYP-YR-IUYDS CAPS (3 sources) Start: 12-17-2016 FORMULA CAPS 1 daily VIT-FE TNS-JM-BXCSR CAPS [id number] Sho Amezcua MD VIT-FE JZF-UC-UGQRK CAPS (9 sources) Start: 12-17-2016 FORMULA CAPS 1 daily VIT-FE YZC-LY-VDEXS CAPS [id number] Sho Amezcua MD promethazine hydrochloride 12.5 mg oral tablet (7 sources) Phenothiazine Start: 01-01-2017 take 1 tablet by mouth every six hours as needed PROMETHAZINE HCL 12.5 MG TABS 1 po q 6 hours as needed PROMETHAZINE HCL [id number] Sho Amezcua MD raNITIdine 150 mg oral [...] % success, consent signed after education from [facility] given Other complications of (4 sources) High risk ; Translations: [Supervision of other high risk pregnancies, second trimester] 11-13-2017 Episodic Comment on above: PRR EDC 08/18/17 girl Aisha JOSE LUIS Bullock Spouse Bryan Other connective tissue disease (1 source) Pain in left foot; Translations: [Pain in left foot] Onset: 5 Episodic Other female genital disorders (16 sources) Personal history of pre-term labor; Translations: [History of premature labor] Onset: 7 12-17-2016 Episodic Comment on above: opapets15 hydroxypro gesterone injections in Other nutritional; endocrine; [...] Test Name Value Interpretation Reference Range Facility Comprehensive Metabolic Prof vajosh 11-26-2024 Albumin [Mass/Vol] 4.2 g/dL Normal 3.5-5.0 [facility] Comment on above: Performed By: #### L 506.0400, L506.1001, L3300.1750, L500.4100, L501.9520, L3100.5125, L500.4050 #### [facility] [address] [place], [address] Albumin/Globulin [Mass ratio] 1.3 {ratio} Normal 0.9-2.4 [facility] Comment on above: Performed By: #### L 506.0400, L506.1001, L3300.1750, L500.4100, L501.9520, L3100.5125, L500.4050 #### [facility] [address] [place], [address] ALK PHOS 79 U/L Normal 35-104 [facility] Comment on above: Performed By: #### L 506.0400, L506.1001, L3300.1750, L500.4100, L501.9520, L3100.5125, L500.4050 #### [facility] [address] [place], [address] ALT [Catalytic activity/Vol] 15 U/L Normal <=34 [facility] Comment on above: Performed By: #### L 506.0400, L506.1001, L3300.1750, L500.4100, L501.9520, L3100.5125, L500.4050 #### [facility] [address] [place], [address] AST [Catalytic activity/Vol] 19 U/L Normal <=31 [facility] Comment on above: Performed By: #### L 506.0400, L506.1001, L3300.1750, L500.4100, L501.9520, L3100.5125, L500.4050 #### [facility] [address] [place], [address] Bilirubin [Mass/Vol] 0.49 mg/dL Normal 0.00-1.30 [facility] Comment on above: Performed By: #### L 506.0400, L506.1001, L3300.1750, L500.4100, L501.9520, L3100.5125, L500.4050 #### [facility] [address] [place], [address] BUN/CRE 17.2 RATIO Normal 10-20 [facility] Comment on above: Performed By: #### L 506.0400, L506.1001, L3300.1750, L500.4100, L501.9520, L3100.5125, L500.4050 #### [facility] [address] [place], [address] Calcium [Mass/Vol] 9.3 mg/dL Normal 7.6-11.0 [facility] Comment on above: Performed By: #### L 506.0400, L506.1001, L3300.1750, L500.4100, L501.9520, L3100.5125, L500.4050 #### [facility] [address] [place], [address] Chloride [Moles/Vol] 102 mmol/L Normal 98-108 [facility] Comment on above: Performed By: #### L 506.0400, L506.1001, L3300.1750, L500.4100, L501.9520, L3100.5125, L500.4050 #### [facility] [address] [place], [address] CO2 [Moles/Vol] 23.4 mmol/L Normal 21.0-32.0 [facility] Comment on above: Performed By: #### L 506.0400, L506.1001, L3300.1750, L500.4100, L501.9520, L3100.5125, L500.4050 #### [facility] [address] [place], [address] Creatinine [Mass/Vol] 0.68 mg/dL Low 0.70-1.20 [facility] Comment on above: Performed By: #### L 506.0400, L506.1001, L3300.1750, L500.4100, L501.9520, L3100.5125, L500.4050 #### [facility] [address] [place], [address] GAP 11 Normal 5-15 [facility] Comment on above: Performed By: #### L 506.0400, L506.1001, L3300.1750, L500.4100, L501.9520, L3100.5125, L500.4050 #### [facility] [address] [place], [address] GFR/1.73 sq M.predicted among non-blacks MDRD (S/P/Bld) [Vol rate/Area] 117 mL/min/{1.73_m2} Normal >60 [facility] Comment on above: Result Comment: mL/m in/1.73m2 CKD-EPI Creatinine Equation (2020) Performed By: #### L 506.0400, L506.1001, L3300.1750, L500.4100, L501.9520, L3100.5125, L500.4050 #### [facility] [address] [place], [address] Globulin (S) [Mass/Vol] 3.2 g/dL Normal 2.2-4.2 [facility] Comment on above: Performed By: #### L 506.0400, L506.1001, L3300.1750, L500.4100, L501.9520, L3100.5125, L500.4050 #### [facility] [address] [place], [address] Glucose [Mass/Vol] 92 mg/dL Normal 70-99 [facility] Comment on above: Performed By: #### L 506.0400, L506.1001, L3300.1750, L500.4100, L501.9520, L3100.5125, L500.4050 #### [facility] [address] [place], [address] Potassium [Moles/Vol] 4.6 mmol/L Normal 3.3-5.1 [facility] Comment on above: Performed By: #### L 506.0400, L506.1001, L3300.1750, L500.4100, L501.9520, L3100.5125, L500.4050 #### [facility] [address] [place], [address] Sodium [Moles/Vol] 136 mmol/L Normal 133-145 [facility] Comment on above: Performed By: #### L 506.0400, L506.1001, L3300.1750, L500.4100, L501.9520, L3100.5125, L500.4050 #### [facility] [address] [place], [address] T PROT 7.4 g/dL Normal 5.9-8.4 [facility] Comment on above: Performed By: #### L 506.0400, L506.1001, L3300.1750, L500.4100, L501.9520, L3100.5125, L500.4050 #### [facility] [address] [place], [address] Urea nitrogen [Mass/Vol] 12 mg/dL Normal 4-19 [facility] Comment on above: Performed By: #### L 506.0400, L506.1001, L3300.1750, L500.4100, L501.9520, L3100.5125, L500.4050 #### [facility] [address] [place], [address] Estradiolon 11-26-2024 ESTRADIOL 21.4 pg/mL Normal [facility] Comment on above: Result Comment: FEMA LES ADULT FEMALE: Premenopausal: 15-350 pg/mL(E2 levels vary widely through the menstrual cycle) Postmenopausal: <10 pg/mL WALKER STAGES MEAN AGE REFERENCE RANGES Stage I(>14 days and prepubertal) 7.1 years Undetectable-20 pg/mLL Stage II 10.5 years Undetectable-24 pg/mL Stage III 11.6 years Undetectable-60 pg/mL Stage IV 12.3 years 15-85 pg/mL Stage V 14.5 years 15-350 pg/mL Puberty onset (transition from Walker stage I to Walker stage II) occurs for girls at a median age of 10.5 (/- 2) years. There is evidence that it may occur up to 1 year earlier in obese girls and in girls. Progression through Walker stages is variable. Walker stage V (adult) should be reached by age 18. Performed By: #### L 506.0400, L506.1001, L3300.1750, L500.4100, L501.9520, L3100.5125, L500.4050 ####[facility] [address] [place], [address] Follicle Stimulating Hormone on 11-26-2024 FSH 5.0 mIU/mL Normal [facility] Comment on above: Result Comment: FEMA LE: Follicular: 1.4 - 18.1 mIU/mL Midcycle: 3.4 - 33.4 mIU/mL Luteal: 1.5 - 9.1 mIU/mL Post Menopause: 23.0 - 116.3 mIU/mL MALE: 1.4 - 18.1 mIU/mL Performed By: #### L 506.0400, L506.1001, L3300.1750, L500.4100, L501.9520, L3100.5125, L500.4050 #### [facility] [address] [place], [address] (968) Lipid Profileon 11-26-2024 CHOL:HDL 2.67 Normal [facility] Comment on above: Performed By: #### L 506.0400, L506.1001, L3300.1750, L500.4100, L501.9520, L3100.5125, L500.4050 #### [facility] [address] [place], [place], [address] Cholesterol [Mass/Vol] 178 mg/dL Normal <=200 [facility] Comment on above: Result Comment: Chol esterol level, Desirable <200 mg/dL Borderline high cholesterol 200-239 mg/dL High cholesterol >=240 mg/dL Recommendations of the NCEP Adult Treatment Panel for the following risk-cutoff thresholds for the [place] Italian population. Performed By: #### L 506.0400, L506.1001, L3300.1750, L500.4100, L501.9520, L3100.5125, L500.4050 #### [facility] [address] [place], [address] Cholesterol in HDL [Mass/Vol] 67 mg/dL Normal [facility] Comment on above: Result Comment: Kavitha onal Cholesterol Education Program (NCEP) guidelines: <40 mg/dL: Low HDL-cholesterol (major risk factor for CHD) >= 60 mg/dL: High HDL-cholesterol (negative risk factor for CHD) HDL-cholesterol is affected by a number of factors, e.g. smoking, exercise, hormones, sex and age. Performed By: #### L 506.0400, L506.1001, L3300.1750, L500.4100, L501.9520, L3100.5125, L500.4050 #### [facility] [address] [place], [address] Cholesterol in LDL [Mass/Vol] 86 mg/dL Normal [facility] Comment on above: Result Comment: Bord dtflro=823-105 mg/dL Higher Winn=224 mg/dL or greater Friedwald Equation for LDL-C Performed By: #### L 506.0400, L506.1001, L3300.1750, L500.4100, L501.9520, L3100.5125, L500.4050 #### [facility] [address] [place], [address] Cholesterol in VLDL [Mass/Vol] 25 mg/dL Normal 5-40 [facility] Comment on above: Performed By: #### L 506.0400, L506.1001, L3300.1750, L500.4100, L501.9520, L3100.5125, L500.4050 #### [facility] [address] [place], [address] Triglyceride [Mass/Vol] 126 mg/dL Normal [facility] Comment on above: Result Comment: The drugs N-Acetylcysteine and Metamizole may falsely depress this assay. Normal range: <150 mg/dL Borderline High: 150-199 mg/dL High: 200-499 mg/dL Very High: >500 mg/dL Performed By: #### L 506.0400, L506.1001, L3300.1750, L500.4100, L501.9520, L3100.5125, L500.4050 #### [facility] [address] [place], [address] T4 Free Directon 11-26-2024 T4 FREE DIRECT 1.10 ng/dL Normal 0.76-1.46 [facility] Comment on above: Performed By: #### L 506.0400, L506.1001, L3300.1750, L500.4100, L501.9520, L3100.5125, L500.4050 #### [facility] [address] [place], [address] Thyroid Stim Hormone (TSH)on 11-26-2024 TSH 2.260 uIU/mL Normal 0.300-4.200 [facility] Comment on above: Performed By: #### L 506.0400, L506.1001, L3300.1750, L500.4100, L501.9520, L3100.5125, L500.4050 #### [facility] [address] [address] [place], [place], [address] Vitamin D,25 Hydroxyon 11-26 Vitamin D 25-OH 35.6 ng/mL Normal 30-100 [facility] Comment on above: Result Comment: Roxie min D Status Deficiency: <20 ng/mL (50nmol/L) Insufficiency: 20-30 ng/mL (50-75 nmol/L) Sufficiency: 30-100 ng/mL (75-250 nmol/L) Toxicity: >100 ng/mL (>250 nmol/L) Performed By: #### L 506.0400, L506.1001, L3300.1750, L500.4100, L501.9520, L3100.5125, L500.4050 #### [facility] [place], [address] Nuclear Weapons Custodian Office Visit Reporton 11-19-2024 Nuclear Weapons Custodian Office Visit Report [facility] [address], [address] [place] [address] OFFICE VISIT Date of Service: 11/19/24 MR#: [id number] Acct: [id number] Name: TARA ARGUELLES Rep #: [id number] : 1990 Provider: SUSHMA Pride Age/Sex: 34/F Location: [place] Status: Signed Intake Vital Signs 10/28/23 11:14 11/19/24 10:11 Height 5 ft 4 in 5 ft 4 in Weight: 169 lb 4 oz BMI 29.0 BP 112/71 Intake Visit Reasons: BC Consult *COPAY $20 Actionscript Developer Required: No Is patient in pain?: No [...] No : No Control Method: bilat salp [facility] Medical History Displaced fracture of proximal phalanx [...] Date Name GA/Weeks Outcome Route Bth Weight Infant Gen Labor Lgth Anesthesia Del Locatn Provider FOB 04/12/12 Yisel 37 live - full term 5lbs 5oz Female [facility] JORDAN 08/16/17 Aisha 39 live - full term Female epidural [facility] ROS Const Constitutional: Reports system reviewed [...] Other fatigue (more content not included)... Normal [facility] Foot min 3 Viewson Foot min 3 Views [facility] [address] [place], [place] [address] Foot min 3 Views MR#: [id number] Acct: [id number] Name: TARA ARGUELLES Rep #: [id number] : 1990 F 34 From: [place] [place] PCP: Dr. Alon Erickson MD Status: REG CLI Study: Foot min 3 Views Date of Exam: 08/31/24 Exam# [id number] Ordering Dr: Lane Newman PA PROCEDURE: FOOT [...] or joint space narrowing identified. Reading Location: [place] [address] CC: Dr. Alon Erickson MD; JAZMYN Shay Construction Trades Contractor: Signed Normal [facility] Urgent Care Visit Reporton 0 08-31-2024 Urgent Care Visit Report [facility] [address], [address] [place] [address] OFFICE VISIT Date of Service: 08/31/24 MR#: [id number] Acct: [id number] Name: TARA ARGUELLES Rep #: [id number] : 1990 Provider: JAZMYN Shay Age/Sex: 34/F Location: [facility] Status: Signed Intake Vital Signs 10/28/23 11:14 [...] before she loreto tapes it. [facility] Medical History (Updated 08/31/24 @ 10:20 by JAZMYN Roy) Displaced fracture of proximal phalanx of left [...] safe at home: Yes additional social history: Bryan- [employer] HPI HPI Details: TARA ARGUELLES, is a [...] flexion/extension of the same. PMH NC. No jgyy-ixn-ybykqkj medications taken to assist. No other associated [...] the above. This note was generated with [employer] dictation software. It may contain incorrect words, spelling, and punctuation that were not noted in checking the note before signing. Orders: Orders Foot min 3 Views Today M79.672 - Pain in left foot Referrals Podiatry S92.512A - Displaced fracture of proximal phalanx of left lesser toe(s), initial encounter for closed fracture 08/31/24 1104 Date (more content not included)... Normal [facility] Office Visit Reporton 2024 Office Visit Report [facility] [address] [place] [address] OFFICE VISIT Date of Service: 05/13/24 MR#: [id number] Acct: [id number] Patient: TARA ARGUELLES Rep #: [id number] : 1990 Provider: SUSHMA Franco Age/Sex: 34/F Location: [facility] Status: Signed Intake Vital Signs 10/28/23 11:14 Height 5 ft 4 in Intake Visit Reasons: EMPLOYEE COVID/ [facility] Chief Complaint: est care Allergies venom-wasp Allergy [...] on 05/13/24 11:25 09/09/24 0612 Date Bryan Stratton Signature: Date (if applicable) CC: Normal [facility] - Microbiology an d Antimicrobial susceptibilityOrdered By: Bryan Franco on 05-13-2024 SARS-CoV-2 (COVID-19) RNA SHIVA+probe Ql (Unsp spec) Not detected [facility] No Panel InformationOrdered By: Bryan Franco on 05-13-2024 POC Nasal Swab Influenza A,B Not detected [facility] POC Nasal Swab RSV Not detected [facility] Rapid group A Streptococcus antigen assay at point of careOrdered By: Bryan Franco on 05-13-2024 S. pyogenes Ag IA.rapid Ql (Throat) Negative [facility] Urgent Care Visit Reporton 0 05-13-2024 Urgent Care Visit Report [facility] [address], [address] [place] [address] OFFICE VISIT Date of Service: 05/13/24 MR#: [id number] Acct: [id number] Name: TARA ARGUELLES Rep #: [id number] : 1990 Provider: SUSHMA Franco Age/Sex: 33/F Location: [facility] Status: Signed Intake Vital Signs 10/28/23 11:14 [...] chills going on since yesterday. [facility] Medical History (Updated 05/13/24 @ 11:25 by SUSHMA Jean) Viral illness Anxiety and depression Overweight (BMI [...] history: Claudia Luz HPI HPI Details: TARA ARGEULLES, is a 33 F who presents to [...] likely viral in origin. She will use ioma-axp-gwlwmex treatments as necessary and follow-up with PCP if symptoms not improving. Orders: Orders POC Cepheid Covid, FluAB, RSV Today POC Estephania Rapid Strep A Today 05/13/24 1126 Date Bryan Joan GENERAL LABORER-C Cosigner Signature: Date (if applicable) CC: Normal [facility] Office Visit Reporton 2023 Office Visit Report [facility] [address] [place] [address] OFFICE VISIT Date of Service: 12/02/23 MR#: [id number] Acct: [id number] Patient: TARA ARGUELLES Rep #: [id number] : 1990 Provider: JAZMYN Shay Age/Sex: 33/F Location: [facility] Status: Signed Intake Vital Signs 10/28/23 11:14 [...] FluAB, RSV Today 12/02/[address] ELDRIDGE Cosigner Signature: Date (if applicable) CC: Anita [facility] CNOVon 05-23-2021 CNOV Office Visit (FAMPWS ) TARA ARGUELLES ([id number]) 1990 [facility] Date Time Provider Department 05/23/21 12:00 PM [facility] During your visit today, we recorded the [...] 1 - NOT DIFFICULT AT ALL Mj Collier DO 05/24/2021 7:00 AM Signed CC: Taracynthia [...] plan. See patient instructions. Mj Collier DO [address] [place] [address] Referring Provider: SELF [200] Allergies As of Date: 05/23/2021 Noted Allergy Reaction BEES 07/09/2005 Date Reviewed: 03/10/2021 Reviewed by: Madeline Dey APRN.CERTIFIED NUCLEAR MEDICINE TECHNOLOGIST - Fully Assessed Reason for Visit: Weight [...] Problem List (more content not included)... [facility] STEPHN [facility] (CORPMN) TARA ARGUELLES ([id number]) 1990 F [facility] Date Time Provider Department 03/11/21 CAS DIAS During your visit today, we recorded the following information about you: Allergies As of Date: 03/11/2021 Noted Allergy Reaction BEES 07/09/2005 Date Reviewed: 03/10/2021 Reviewed by: Madeline Dey APRN.CNP - Fully Assessed Reason for Visit: [facility] COVID Outreach [3886] Prescriptions as of 03/11/2021 - predniSONE (DELTASONE) [...] Encounter Status:Closed by TULIO YOUNG on 03/11/21 [facility] CNOVon 03-10-2021 CNOV Office Visit (UCWSTR ) TARA ARGUELLES ([id number]) 1990 [facility] Date Time Provider Department 03/10/21 9:30 AM MADELINE DEY [facility] During your visit today, we recorded the following information about you: Temperature Pulse Respiration Blood pressure 98.1 degrees 97/minute 16/minute 122/74 Weight 81.6 kg Madeline Dey APRN.CNP 03/10/2021 10:22 AM Signed Subjective HPI HPI Tara Ruelas Kindra is a 30 year old female who [...] Date Reviewed: 03/10/2021 Reviewed by: Madeline Dey APRN.STEPH - Fully Assessed Reason for Visit: Chest Congestion [236] Cmt: cough, sore throat x 1 day Primary Visit Diagnosis:Suspected COVID-19 virus infection [Z20.822] Other Visit Diagnosis:Sore throat [J02.9] Order(s):STREP A MOLECULAR (POC) [1003458] Order #: [id number]. #:[id number] CAREGIVER COVID19 [SQCGCOVD] Order #: [id number] FUTURE predniSONE (DELTASONE) 20 mg tabletTake 2 [...] anxiety [F41.8] 02/03/2016 Social anxiety disorder [F40.10] 01/28/ (more content not included)... Normal [facility] Caregiver [id number] 03-10-20 SARS-CoV-2 (COVID-19) RNA SHIVA+probe Ql (Unsp spec) UPPER RESPIRATORY TRACT SWAB Normal [facility] Comment on above: Performed By: #### C GCOVD ####[facility] [place], [place] [phone] SARS-CoV-2 (COVID-19) RNA SHIVA+probe Ql (Unsp spec) Negative for COVID19 (SARS CoV2) by RT-PCR or equivalent method. Normal Negative for COVID19 (SARS CoV2) by RT-PCR or equivalent method. [facility] Comment on above: Result Comment: This test was developed and its performance characteristics determined by [facility] [place]. This test has been authorized by FDA under an Emergency Use Authorization (EUA). This test has been validated in accordance with the FDA's Guidance Document Policy for Diagnostics Testing in Laboratories Certified to Perform High Complexity Testing under CLIA prior to Emergency use Authorization for Coronavirus Disease 2019 during the Public Health Emergency issued on May 09, 2019. Test performed by [facility], [facility] [place], [address], [place] [address]. Performed By: #### C GCOVD ####[facility] [place], [place] [phone] CNOVon 11-30-2020 CNOV Office Visit (PEDSWS ) TARA ARGUELLES ([id number]) 1990 F [facility] Date Time Provider Department 11/30/20 9:00 AM NURSE DMITRY [facility] During your visit today, we recorded the following information about you: Referring Provider: SELF [200] Allergies As of Date: 11/30/2020 Noted Allergy Reaction BEES 07/09/2005 Date Reviewed: 09/23/2020 Reviewed by: Doris Dean APRN.CNM - Fully Assessed Reason for Visit: Imm/Inj [58] Cmt: flu vaccine Primary Visit Diagnosis:Encounter for immunization [Z23] Order(s):INFLUENZA VACCINE QUADRIVALENT 6 MO - 64 YRS IM [[id number]] Order #: [id number] Prescriptions as of 11/30/2020 - sertraline (ZOLOFT) 50 mg tablet Take 1 tablet by mouth once daily. Problem List As Of Date 11/30/2020 Noted Resolved Patient requested diagnostic testing [Z01.89] 09/27/2011 12/11/2011 Adnexal mass [N94.89] 05/04/2015 Test anxiety [F41.8] 02/03/2016 Social anxiety disorder [F40.10] 01/28/2018 Encounter Status:Closed by ОЛЕГ DELACRUZ CMA on 11/30/20 Normal [facility] Bact/Cand Vag Grm Ston 09-23 Bact/Cand Vag Grm St Sp. Request/Comment : - Swab Smear Result - BACTERIAL VAGINOSIS RESULT: Stain results consistent with normal vaginal ned. No Yeast observed No Polymorphonuclear Leukocytes Normal [facility] Comment on above: Performed By: #### [facility] ####[facility] [id number] [place], [place] [address]DenmoldpzC[facility] [address] [place], [place] [phone] ABENAOVon 09-23-2020 [facility] Office Visit (OBGYWM ) TARA ARGUELLES ([id number]) 1990 F [facility] Date Time Provider Department 09/23/20 1:45 PM DORIS DEAN During your visit today, we recorded the following information about you: Blood pressure Weight Last Period 118/66 72.6 kg 09/09/20 Doris Dean APRN.CNM 09/23/2020 2:41 PM Signed Aged Or Disabled Care Worker Visit 09/23/2020 1:59 PM CC: STD screening [...] prevention. Follow up 1 year for annual durable medical equipment technician exam or sooner as needed. Greater than 50% of this 30 minute visit was spent counseling the patient and coordinating care. Doris Dean APRN.CNM Referring Provider: SELF [200] Allergies As of Date: 09/23/2020 Noted Allergy Reaction BEES 07/09/2005 Date Reviewed: 09/23/2020 Reviewed by: Doris Dean APRN.CNM - Fully Assessed Reason for Visit: STD [102] Cmt: Std Check Primary Visit Diagnosis:Screen for STD (sexually transmitted disease) [Z11.3] Order(s):GC/CHLAMYDIA DNA DET [SQGCCAMP] Order #: [id number] BACT/LALI VAG GRAM STAIN [SQBVCNSM] Order #: [id number] TRICHOMONAS PREP/ANTIGEN [SQTRICHO] Order #: [id number] HIV 1 2 COMBO(AG/AB),WITH REFLEX TO DIFFERENTIATION [SQHIV12] Order #: [id number] FUTURE SYPHILIS TOTAL W/REFLEX [SQSYPHTX] Order #: [id number] FUTURE HEP B SURF AG SCRN [SQHBSAG] Order #: [id number] FUTURE HCV QUANT RNA BY PCR [SQHCQPCR] Order #: [id number] FUTURE Prescriptions as of 09/23/2020 - sertraline [...] Status:Closed by DORIS DEAN on 09/23/20 Normal [facility] GC/Chlamydia Amplifon 2020 Chlamydia Amplif Negative Normal [facility] Comment on above: Performed By: #### G CCT ####[place] [phone] GC Amplification Negative Normal [facility] Comment on above: Performed By: #### G CCT ####[place] [phone] GC/Chlam Amp Source Cervix Normal [facility] Comment on above: Performed By: #### G CCT ####[place] [phone] OUC2u94 Ag +HIV12 Abon 09-23 HIV 12 Ag/Ab Non-Reactive Normal Non Reactive [facility] Comment on above: Performed By: #### H CQPCR, HBSAG, HIV12C, SYPHTX ####[place] [phone] HIV-1/2 Antibody Normal [facility] Comment on above: Result Comment: Test Not Indicated Negative No evidence of HIV-1 or HIV-2 infection. Should recent infection be suspected, repeat testing may be considered 2-3 weeks after this draw. HIV Information: [place] Rev. Code 3701.243(E): This information has been [...] By: #### H CQPCR, HBSAG, HIV12C, SYPHTX ####[address] [place], [place] [phone] Hepatitis B Surf. Agon 09-23 Hepatitis B Surf. Ag Negative Normal Negative [facility] Comment on above: Performed By: #### H CQPCR, HBSAG, HIV12C, SYPHTX ####[address] [phone] Hepatitis C RNAon 09-23-2020 Hepatitis C RNA Not detected Normal [facility] Comment on above: Result Comment: Refe rence Range: Negative for HCV RNA The Linear Range of this assay is 15 IU/mL to 100,000,000 IU/mL. Performed By: #### H CQPCR, HBSAG, HIV12C, SYPHTX ####[address] [phone] Syphilis Ttl w/Reflxon 09-23 Syphilis Interp Cannot exclude recen t Treponemal infection if specimen collected within 7 to 10 days after appearance of suspect lesions or 2 to 3 weeks after an exposure. Clinical correlation is required. Normal [facility] Comment on above: Performed By: #### H CQPCR, HBSAG, HIV12C, SYPHTX ####[address] [phone] Syphilis Screen Rslt Non-Reactive Normal Non Reactive [facility] Comment on above: Performed By: #### H CQPCR, HBSAG, HIV12C, SYPHTX ####[place] [id number] [place], [place] [phone] Trichomonas Prepon Trichomonas Prep Sp. Request/Comment: - Swab Smear Result - Negative for Trichomonas vaginalis antigen This test was developed and its performance characteristics determined by [facility]'s Juma Domo [facility] [place] ([facility]). It has not been cleared or approved by the FDA. [facility] is regulated under CLIA as qualified to perform high complexity testing. This test is used for clinical purposes. It should not be regarded as investigational or for research. Normal [facility] Comment on above: Performed By: #### T ADRIANNE ####[facility] [id number] [place], [place] [address]FnfabozgaWy[facility]ot [facility] Hospital[address] [place], [place] [phone] Dre 08-26-2020 NATY Telephone (FAMRebecaWS) TARA ARGUELLES ([id number]) 1990 [facility] Date Time Provider Department 08/26/20 ROBERTA GUTHRIE During your visit today, we recorded the following information about you: Gloria Lopez 08/26/2020 4:23 PM Signed Patient requesting gallbladder ultrasound can be reached at [phone] Thank you Gloria Guthrie APRN.STEPH 08/26/2020 4:28 PM Signed Order placed for RUQ ultrasound. Please assist her to schedule this appointment. Roberta Guthrie APRN.STEPH Lopez 08/28/2020 1:30 PM Signed Contacted patient and scheduled ultrasound 09/02 Cassandra Lopez Allergies As of Date: 08/26/2020 Noted Allergy Reaction BEES 07/09/2005 Date Reviewed: 06/17/2020 Reviewed by: Roberta Guthrie - Fully Assessed Reason for Visit: Orders [681] Primary Visit Diagnosis:RUQ pain [R10.11] Order(s):US ABD RT UPPER QUADRANT [[id number]] Order #: [id number] FUTURE Prescriptions as of 08/26/2020 Sig: SERTRALINE 50 MG TABLET Take 1 tablet by mouth once d* Problem List As Of Date 08/26/2020 Noted Resolved Patient requested diagnostic testing [Z01.89] 09/27/2011 12/11/2011 Adnexal mass [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 Roberta Guthrie APRN.CNP Allergies As of Date: 07/28/2020 Noted Allergy Reaction BEES 07/09/2005 Date Reviewed: 06/17/2020 Reviewed by: Roberta Guthrie - Fully Assessed Reason for Visit: Results [...] Encounter Status:Closed by ROBERTA GUTHRIE on 07/28/20 [facility] ANES POSTPROC EVALon 020 ANES POSTPROC EVAL HNO ID: [id number] Author: Cj Ingram Service: ? Author Type: Physician Type: Anesthesia Postprocedure Evaluation Filed: 01/21/2020 2:46 PM Note Text: POST ANESTHESIA EVALUATION NOTE : 1990 Procedure Summary Date: 01/21/20 Room / Location: UT OR / [facility] OR Anesthesia Start: 1259 Anesthesia Stop: 1345 [...] January 21, 2020 TIME: 2:46 PM CSN: [id number] [facility] ANES PRE-OPon 01-21-2020 ANES PRE-OP HNO ID: [id number] Author: Cj Ingram Service: ? Author Type: [...] January 21, 2020 TIME: 11:24 AM CSN: [id number] [facility] NURSING PROGon 01-21-2020 NURSING PROG HNO ID: [id number] Author: Steffanie (Rn) AG Bran Service: Nursing [...] Signed By: Steffanie Bran RN In Department: [facility] SURGERY [facility] OPERATIVE NOon 01-21-2020 OPERATIVE NO HNO ID: [id number] Author: Juana Ramos Service: Gynecology Author Type: Physician Type: Operative Report Filed: 01/21/2020 1:38 PM Note Text: CHECK AND TRANSFER BEADER OPERATIVE/PROCEDURE REPORT LOG ID: [id number] Surgery/Procedure Date: 01/21/2020 Incision/Procedure Start Time: 1:20 PM Incision Close/Procedure End Time: 1:30 pm Surgeon(s)/Procedurali st(s) and Picker Box Operator(s): Surgeon(s) and Role: * Juana Ramos - Primary Informed Consent: Informed Consent [...] 21, 2020 TIME: 1:35 PM PAGER/CONTACT #: Anita [facility] SURGICAL PATHOLOGYon 020 SURGICAL PATHOLOGY Specimen originated from [facility] Specimen #: [id number] Submitting Physician: Juana Ramos M.D. FINAL DIAGNOSIS [...] is pinpoint, intact and devoid of contents. Television Technician sections are submitted as follows: A1 fallopian tube #1 and bisected fimbriated end, A2 fallopian tube #2 and bisected fimbriated end. CANDIDA/glw 01/22/2020 Gross examination performed at [facility], [address] [place] [address] [place] [address] Date of Report: 01/26/2020 Date of Procedure: 01/21/2020 Date of Receipt: 01/22/2020 Submitted by: Juana Ramos M.D. Location: [facility] Diagnostic interpretation performed at [facility], [address] [place] [address]. CLIA Number: [id number] [facility] 01-14-2020 CNPN Telephone (PREANME) TARA ARGUELLES ([id number]) 1990 [facility] Date Time Provider Department 01/14/20 SAM [...] Encounter Status:Closed by PETEY VASQUEZ on 01/14/20 [facility] HOSPon 01-04-2020 HOSP Patient:Tara Arguelles MRN: Height:5' [...] for the following basenames: K,HCT Progress Notes (COMPUTER CONSULTANT [facility]): Becky Arroyo RN 01/13/2020 8:28 AM Signed Patient is scheduled today for her Pre-op for surgery in [place] on 01/21/20. Patient is getting COVID testing [...] off work. Becky Arroyo RN Progress Notes ([facility]): Jen Gonzales PA-C 01/13/2020 7:28 AM Signed Spoke with patient - meets criteria for Covid-19 testing. Symptoms: DUMAS, cough, diarrhea, myalgia x 1 day; some reduced sense of taste (anterior tongue). Covid 19 test ordered; patient instructed to schedule test via [facility] RONEN. 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 Jen Gonzales PA-C Physician Picker Box Operator Occupational Health [facility] COVID-19 (Novel Coronavirus): ? You are [...] clean your hands with an alcohol-based hand plush weaver that contains at least 60% alcohol. ? Wash your hands often with soap and water for at least 20 seconds, especially after blowing your nose, coughing, or sneezing; going to the bathroom; and before eating or preparing food. If soap and water are not readily available, use an alcohol-based hand plush weaver with at least 60% alcohol, covering all [...] isolation precautions should be made on a palc-yc-mifi basis, in consultation with healthcare providers and [...] healthcare provider to call the local or state health department for additional guidance. If the [...] 20 seconds or use an alcohol-based hand plush weaver that contains 60 to 95% alcohol, covering [...] with soap and water or alcohol-based hand plush weaver. Next, remove and dispose of facemask, and immediately clean your hands again with soap and water or alcohol-based hand plush weaver. ? Avoid sharing household items with the [...] soap and water or an alcohol-based hand plush weaver) immediately after removing your gloves. ? Read [...] soap and water or an alcohol-based hand plush weaver) immediately after handling these items. Soap and [...] being coughed on). Jen Gonzales PA-C Physician Picker Box Operator Occupational Health [facility] Lab Report: Rapid Plasmin Re agin (RPR)on 03-01-2017 Reagin antibody presence NONREACTIVE Invalid Interpretation Code NONREACTIVE [facility] Lab Report: HIV Screen 4TH G EN W/Confirmon 02-27-2017 GE use only - for [employer] import when terms are not otherwise specified Non Reactive Invalid Interpretation Code Non Reactive [facility] Lab Report: Hepatitis B Surf mariana Agon 02-27-2017 BSA (Body Surface Area) Negative Invalid Interpretation Code Negative [facility] Lab Report: Rubella IgGon rubella virus antibody, IgG 80.5 [iU]/mL Invalid Interpretation Code [facility] Blood Bank: Type AND Screeno n 02-26-2017 GE use only - for [employer] import when terms are not otherwise specified Negative Normal [facility] Lab Report: CBC W/Diff, Auto matedon 02-26-2017 Basophils/100 leukocytes 0.1 % Invalid Interpretation Code 0-1 [facility] Eosinophils/100 leukocytes 1.6 % Invalid Interpretation Code 0-5 [facility] Erythrocytes (RBC) 4.03 10*6/uL Low 4.2-5.4 [place] [facility] Hematocrit (HCT) 35.3 % Low 37-47 [facility] Hemoglobin (HGB) 12.1 g/dL Invalid Interpretation Code 12.0-15.0 [facility] immature granulocytes, percentage of total cells, blood 0.300 % Invalid Interpretation Code 0.0-0.9 [facility] Lymphocytes 1.34 X10 3/UL Invalid Interpretation Code 0.83-4.51 [facility] Lymphocytes/100 leukocytes 17.5 % Low 19-41 [facility] MCH 30.0 pg Invalid Interpretation Code 27.0-32.0 [facility] MCHC 34.3 G/GL Invalid Interpretation Code 32-36 [facility] MCV 87.6 fL Invalid Interpretation Code 81-99 [facility] Monocytes/100 leukocytes 7.3 % Invalid Interpretation Code 0-10 [facility] neutrophil count, blood 5.6 X10 3/UL Invalid Interpretation Code 2.0-7.7 [facility] Neutrophils/100 leukocytes 73.2 % High 47-70 [facility] Platelets 242 10*3/mm3 Invalid Interpretation Code 150-450 [facility] PMV by Omid 10.0 fL Invalid Interpretation Code 6.2-12.0 [facility] RDW-CA 12.5 % Invalid Interpretation Code 11.6-14.6 [facility] red blood cell distribution width, size density 39.3 fL Invalid Interpretation Code 35.1-43.9 [facility] WBC (Leukocytes) 7.7 10*3/uL Invalid Interpretation Code 4.4-11.0 [facility] Office Visit: OB Routineon 1 03-30-2016 Documentation of current medications (procedure) Done Invalid Interpretation Code [facility] Tobacco smoking status MTIS Tobacco smoking status NHIS Invalid Interpretation Code [facility] Tobacco smoking status NHIS Never Invalid Interpretation Code [facility] Tobacco use [facility] Never smoker Invalid Interpretation Code [facility] Urine, glucose presence N Invalid Interpretation Code [facility] Urine, protein N Invalid Interpretation Code [facility] Office Visit: OB Routineon 1 Albumin Ql (U) N Invalid Interpretation Code [facility] crown rump length by ultrasound 9.6 mm Invalid Interpretation Code [facility] Documentation of current medications (procedure) Done Invalid Interpretation Code [facility] estimated date of confinement by sonogram 08/18/2017 Invalid Interpretation Code [facility] cardiac activity by sonography Yes Invalid Interpretation Code [facility] number by ultrasound 1 Invalid Interpretation Code [facility] gestational age by ultrasound 7W 0D Invalid Interpretation Code [facility] Glucose Test strip mass conc (U) N Invalid Interpretation Code [facility] OB ultrasound, gestational sac Yes Invalid Interpretation Code [facility] Protein mass conc Done Invalid Interpretation Code [facility] Tobacco smoking status NHIS Never smoker Invalid Interpretation Code [facility] Tobacco use CPH[facility] Never smoker Invalid Interpretation Code [facility] Urine, glucose presence N Invalid Interpretation Code [facility] Urine, protein N Invalid Interpretation Code [facility] Office Visit: OB Initialon 1 Documentation of current medications (procedure) Done Invalid Interpretation Code [facility] Fall risk assessment No Invalid Interpretation Code [facility] Herpes Simplex Virus Genital no Invalid Interpretation Code [facility] Tobacco smoking status NHIS Never Invalid Interpretation Code [facility] Tobacco use [facility] Never smoker Invalid Interpretation Code [facility] Vital Signs Date Time Vital Sign Value Performing Clinician Faci elizabethy 11-19-2024 10:11-0400 Body height 162.[address] Alon Erickson MD Work Phone: [facility] 11-19-2024 10:11-0400 Body mass index (BMI) [Ratio] 29 kg/m2 Dr. Alon Erickson MD Work Phone: [facility] 11-19-2024 10:11-0400 Body weight 76.[address] Alon Erickson MD Work Phone: [facility] 11-19-2024 10:11-0400 Diastolic blood pressure 71 mm[Hg] Dr. Alon Erickson MD Work Phone: [facility] 11-19-2024 10:11-0400 Systolic blood pressure 112 mm[Hg] Dr. Alon Erickson MD Work Phone: [facility] 08-31-2024 10:05-0400 Body temperature 98.1 [degF] Dr. Alon Erickson MD Work Phone: [facility] 08-31-2024 10:05-0400 Diastolic blood pressure 80 mm[Hg] Dr. Alon Erickson MD Work Phone: [facility] 08-31-2024 10:05-0400 Heart rate 61 /min Dr. Alon Erickson MD Work Phone: [facility] 08-31-2024 10:05-0400 Respiratory rate 16 /min Dr. Alon Erickson MD Work Phone: [facility] 08-31-2024 10:05-0400 SaO2% (BldA) [Mass fraction] 98 % Dr. Alon Erickson MD Work Phone: [facility] 08-31-2024 10:05-0400 Systolic blood pressure 120 mm[Hg] Dr. Alon Erickson MD Work Phone: [facility] 05-13-2024 10:42-0500 Body temperature 98.3 [degF] Dr. Alon Erickson MD Work Phone: [facility] 05-13-2024 10:42-0500 Diastolic blood pressure 80 mm[Hg] Dr. Alon Erickson MD Work Phone: [facility] 05-13-2024 10:42-0500 Heart rate 69 /min Dr. Alon Erickson MD Work Phone: [facility] 05-13-2024 10:42-0500 SaO2% (BldA) [Mass fraction] 99 % Dr. Alon Erickson MD Work Phone: [facility] 05-13-2024 10:42-0500 Systolic blood pressure 120 mm[Hg] Dr. Alon Erickson MD Work Phone: [facility] 05-28-2023 13:31-0400 Body temperature 97.5 [degF] [facility] 05-28-2023 13:31-0400 Diastolic blood pressure 72 mm[Hg] [facility] 05-28-2023 13:31-0400 Heart rate 74 /min [facility] 05-28-2023 13:31-0400 Respiratory rate 16 /min [facility] 05-28-2023 13:31-0400 SaO2% (BldA) [Mass fraction] 98 % [facility] 05-28-2023 13:31-0400 Systolic blood pressure 122 mm[Hg] [facility] 05-28-2023 12:23-0400 Body height 162.56 cm [facility] 05-28-2023 12:23-0400 Body mass index (BMI) [Ratio] 27.4 kg/m2 [facility] 05-28-2023 12:23-0400 Body weight 72.57 kg [facility] 01-28-2017 05:29-0500 BMI (Body Mass Index) 26.67 kg/m2 Sho Amezcua MD [facility] 01-28-2017 05:29-0500 BP Diastolic 70 mm[Hg] Sho Amezcua MD [facility] 01-28-2017 05:29-0500 BP Systolic 113 mm[Hg] Sho Amezcua MD [facility] 01-28-2017 05:29-0500 Weight 70.49 kg Sho Amezcua MD [facility] 12-31-2016 11:01-0400 BMI (Body Mass Index) 25.85 kg/m2 Sho Amezcua MD [facility] 12-31-2016 11:01-0400 Body Temperature 97.7 [degF] Sho Amezcua MD [facility] 12-31-2016 11:01-0400 BP Diastolic 61 mm[Hg] Sho Amezcua MD [facility] 12-31-2016 11:01-0400 BP Systolic 108 mm[Hg] Sho Amezcua MD [facility] 12-31-2016 11:01-0400 Pulse (Heart Rate) 71 /min Sho Amezcua MD [facility] 12-31-2016 11:0400 Respiratory Rate 16 /min Sho Amezcua MD [facility] 12-31-2016 11:0400 Weight 68.31 kg Sho Amezcua MD [facility] 12-17-2016 15:170400 BMI (Body Mass Index) 25.57 kg/m2 Sho Amezcua MD [facility] 12-17-2016 15:17-0400 BP Diastolic 70 mm[Hg] Sho Amezcua MD [facility] 12-17-2016 15:170400 BP Systolic 125 mm[Hg] Sho Amezcua MD [facility] 12-17-2016 15:0400 Height 162.56 cm Sho Amezcua MD [facility] 12-17-2016 15:0400 Pulse (Heart Rate) 75 /min Sho Amezcua MD [facility] 12-17-2016 15:0400 Weight 67.58 kg Sho Amezcua MD [facility] 12-17-2016 15:170400 Weight 67.59 kg Sho Amezcua MD [facility] Encounters Encounter Date Encounter Type Care Provider Facility Start: 12-03-2024 ambulatory Alon Cunningham ty:[facility] Start: 11-26-2024 ambulatory Kiana Fisher Facility :[facility] Start: 11-19-2024 End: 11-19-2024 Patient encounter procedure Kiana Fisher GENERAL LABORER-C -[facility] Work Phone: Start: 11-19-2024 End: 11-19-[address] Alon Erickson MD Work Phone: -[facility] Start: 08-31-2024 End: 08-31-[address] Newman [facility] Work Phone: Start: 08-31-2024 End: 08-31-[address] Alon Erickson MD Work Phone: [facility] Work Phone: Start: 08-31-2024 End: 08-31-[address] ELDRIDGE Facility:[facility] Start: 05-13-2024 End: 05-13-2024 Patient encounter procedure Bryan Franco GENERAL LABORER-C -[facility] Work Phone: Start: 05-13-2024 End: 05-13-2024 ambulatory Bryan Franco Facility:[facility] Start: 12-02-2023 End: 12-02-2023 ambulatory Alon Erickson Facility:[facility] Start: 05-28-2023 End: 05-28-2023 Emergency department patient visit [facility] Work Phone: Procedures Date Procedure [...] Activity Detail Author Start: 08-31-2024 Patient referral [facility] Work Phone: Start: 05-28-2023 [facility] Start: 05-28-2023 Hepatitis B surface antigen measurement [facility] Start: 05-28-2023 Hepatitis C antibody measurement [facility] Start: 01-28-2017 End: 01-28-[address] [facility] Start: 12-31-2016 End: 12-31-2016 Appointment Appointment [facility] Start: 12-17-2016 End: 12-19-2016 *CBC with Differential *CBC with Differential [facility] Start: 12-17-2016 End: 12-19-2016 *GC/Chlamydia *GC/Chlamydia [facility] Start: 12-17-2016 End: 12-19-2016 *HEBSAG - Hep B Surface Antigen 6510 *HEBSAG - Hep B Surface Antigen 6510 [facility] Start: 12-17-2016 End: 12-19-2016 *HIV antibody *HIV antibody [facility] Start: 12-17-2016 End: 12-19-2016 *TS Type and Screen *TS Type and Screen [facility] Start: 12-17-2016 End: 12-17-2016 *UA - Urinalysis w/o Micro *UA - Urinalysis w/o Micro [facility] Start: 12-17-2016 End: 12-19-2016 Reagin antibody presence *RPR [facility] Start: 12-17-2016 End: 12-19-2016 Rubella virus Ab [Units/volume] in Serum *Rubella Screen [facility] Start: 12-17-2016 End: 12-19-2016 Urine culture, bacteria *CUUR - Culture, Urine ([place] Count) [facility] Start: 12-17-2016 End: 12-19-2016 Us preg uterus after 1st trimest 1/ gestation US OB, >14 weeks [facility] Start: 12-17-2016 End: 03-02-2017 *CBC with Differential *CBC with Differential [facility] Start: 12-17-2016 End: 12-19-2016 *GC/Chlamydia *GC/Chlamydia [facility] Start: 12-17-2016 End: 03-26-2017 *HEBSAG - Hep B Surface Antigen 6510 *HEBSAG - Hep B Surface Antigen 6510 [facility] Start: 12-17-2016 End: 03-26-2017 *HIV antibody *HIV antibody [facility] Start: 12-17-2016 End: 12-19-2016 *TS Type and Screen *TS Type and Screen [facility] Start: 12-17-2016 End: 12-17-2016 *UA - Urinalysis w/o Micro *UA - Urinalysis w/o Micro [facility] Start: 12-17-2016 End: 12-19-2016 Ob us >/= 14 wks, sngl fetus US OB, >[address] [facility] Start: 12-17-2016 End: 03-26-2017 Reagin antibody presence *RPR [facility] Start: 12-17-2016 End: 03-26-2017 Rubella virus Ab [Units/volume] in Serum *Rubella Screen [facility] Start: 12-17-2016 End: 12-19-2016 Urine culture, bacteria *CUUR - Culture, Urine ([place] Count) [facility] Hepatitis B virus surface IgG Ab [Presence] in Serum [facility] HIV 1+2 Ab+HIV1 p24 Ag [Presence] in Serum or Plasma by Immunoassay [facility] Patient Education ED NEEDLE STIC K Health Care Worker [facility] Work Phone: Patient referral [facility] Work Phone: Immunizations Immunization Date Immunization Notes Care Provider [facility] 12-30-2023 influenza, seasonal, injectable, preservative free Dr. Alon Erickson MD Work Phone: [facility] 05-28-2023 tetanus toxoid, redu demetria diphtheria toxoid, and acellular pertussis vaccine, adsorbed [facility] 02-11-2023 influenza, injectabl e, quadrivalent, preservative free [facility] 01-24-2022 influenza, injectabl e, quadrivalent, preservative free [facility] 11-30-2020 influenza, injectabl e, quadrivalent, preservative free Dr. Alon Erickson MD Work Phone: [facility] 04-21-2020 Covid (Moderna) Dr. Florentin Erickson MD Work Phone: [facility] 03-24-2020 Covid (Moderna) Dr. Florentin Erickson MD Work Phone: [facility] 12-29-2019 influenza, injectabl e, quadrivalent, preservative free Dr. Alon Erickson MD Work Phone: [facility] 02-23-2019 tetanus toxoid, redu demetria diphtheria toxoid, and acellular pertussis vaccine, adsorbed Dr. Alon Erickson MD Work Phone: [facility] 09-16-2018 measles, mumps and rubella virus vaccine Dr. Alon Erickson MD Work Phone: [facility] 08-19-2018 measles, mumps and rubella virus vaccine Dr. Alon Erickson MD Work Phone: [facility] 06-18-2017 tetanus toxoid, redu demetria diphtheria toxoid, and acellular pertussis vaccine, adsorbed [facility] 09-25-2006 hepatitis B vaccine, pediatric or pediatric/adolescent dosage Dr. Alon Erickson MD Work Phone: [facility] 11-26-2005 hepatitis B vaccine, pediatric or pediatric/adolescent dosage Dr. Alon Erickson MD Work Phone: [facility] 10-15-2005 hepatitis B vaccine, pediatric or pediatric/adolescent dosage Dr. Alon Erickson MD Work Phone: [facility] Payers Date Payer Category Payer Unknown [id number] 2023 Self-pay [id number] Unknown [id number] Unknown MED [employer] TPA [id number] Unknown [id number] 2.16.8 [id number] Unknown [id number] 2.16.8 [id number] Unknown [id number] 2.16.8 [id number] Unknown [id number] 2.16.8 [id number] Unknown [id number] 2.16.8 [id number] Unknown [id number] 2.16.8 [id number] Unknown [id number] 2.16.8 [id number] Unknown [id number] 2.16.8 [id number] Social History Date Type Detail Facility [facility] Start: 1990 Sex Assigned At Female W [facility] Start: 10-28-2023 [facility]finding[facility] Clinical Notes 09-23-2020 to 08-31-2024 Note Date & Type Note Facility 06-23-2025 Evaluation note Diagnosis Onset Date Resolution Displaced fracture of proximal phalanx of left lesser toe(s), initial encou acute August 31, 2024 9:20am [facility] Work Phone: 1(624) 565-363706-23-2025 Radiology Diagnostic study note [facility] [address] [place], [place] [id number] Foot min 3 Views MR#: [id number] Acct: [id number] Name: TARA ARGUELLES Rep #: [id number] : 1990 F 34 From: Ray Mccain MD PCP: Dr. Alon Erickson MD Status: R EG CLI Study:Foot min 3 Views Date of Exam: Exam# [id number] Ordering Dr: St berenice Newman PROCEDURE: FOOT [...] or joint space narrowing identified. Reading Location: [place] [address] CC: Dr. Alon Erickson MD; JAZMYN Shay ~ Construction Trades Contractor: Signed [facility]03-05-2025 Evaluation note* Diagnosis Onset Date Resolution Status Admit Date Viral illness acute May 13, 2024 10:40am Displaced fracture of proxim al phalanx of left lesser toe(s), initial encou acute August 31, 2024 9:20am [facility] Work Phone: 1(437) 938-179405-12-2022 NoteHNO ID: [id number] Author: Charlee Brush APRN.CERTIFIED NUCLEAR MEDICINE TECHNOLOGIST Service: ? Author Type: Nurse Practitioner Type: Progress Notes Filed: 07/20/2021 10:04 AM Note Text: This Team Access Model visit is a virtual encounter. It required patient-provider interaction for the medical decision making as documented below. Patient agrees to the visit: Yes Patient Location: [place] CC: Patient presents with: Weight Problem HPI Tara Arguelles is a 31 year old female who is contacted today for a virtual visit. This is an established patient of Dr. Mj Collier, DO and myself. Adipex follow-up: Started on Adipex [...] (particularly word-finding difficulties). Exercise-- working out at [employer] about 3x/week with cardio and weight lifting. [...] exercise, treatment options and medications. Charlee Brush APRN.[facility]04-01-2022 NoteHNO ID: [id number] Author: Charlee Brush APRN.STEPH Service: ? Author Type: Nurse Practitioner Type: Progress Notes Filed: 06/09/2021 1:14 PM Note Text: This Team Access Model visit is a virtual encounter. It required patient-provider interaction for the medical decision making as documented below. Patient agrees to the visit: Yes Patient Location: [place] CC: Patient presents with: Medication Follow-up HPI [...] study. Has still been working out at [employer] about 3x/week with cardio and weight lifting. 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 [facility]03-16-2022 NoteHNO ID: [id number] Author: Mj Collier, DO Service: ? Author [...] plan. See patient instructions. Mj Collier DO [address] [place] [address] [facility]qqmn[facility]03-15-2022 NoteHNO ID: [id number] Author: Lui Davis LPN Service: ? Author [...] social activity: 1 - NOT DIFFICULT AT [facility]12-31-2021 NoteHNO ID: [id number] Author: Madeline Dey APRN.CERTIFIED NUCLEAR MEDICINE TECHNOLOGIST Service: ? Author Type: Nurse Practitioner Type: [...] MG TABLET Agrees to plan Madeline Dey APRN.[facility]12-17-2021 NoteHNO ID: [id number] Author: Leonel Heller Population Health Navigator Service: ? Author Type: ? Type: Progress Notes Filed: 02/24/2021 2:38 PM Note Text: POPULATION HEALTH NAVIGATION OUTREACH Action/FYI Updated pcp field Contact made with patient or family member? NO Pt identified by name and : NO Outreach Outcome/Action PCP field updated Reason for Outreach Attribution: Provider Off-boarding Payer: Payor: [facility] / Plan: [facility] NON STAFF / Product Type: *No Product type* / Care Gap Reviewed:: Reminder: Reminder note to check Health Maintenance for items below Health Maintenance items due: DEPRESSION SCREENING due on 11/28/2019 COVID-19 VACCINE(3 - Booster for Moderna series) due on 10/19/2020 Advanced Directives Completed: Have you ever planned for future healthcare decisions with a power of business attorney, living will, or advance directives? No. Please bring a copy to your next appointment or email to On Referrals: N/A Message Sent to Practice: NO Navigation Signature: Leonel Heller Population Health Navigator February 24, 2021 2:37 [facility]12-17-2021 NotePatient Outreach (NETNAV) TARA ARGUELLES ([id number]) 1990 F [facility] Date Time Provider Department 02/24/21 LEONEL HELLER During your visit today, we recorded the following information about you: Leonel Heller Population Health Navigator 02/24/2021 2:38 PM Signed POPULATION HEALTH NAVIGATION OUTREACH Action/FYI Updated pcp field Contact made with patient or family member? NO Pt identified by name and : NO Outreach Outcome/Action PCP field updated Reason for Outreach Attribution: Provider Off-boarding Payer: Payor: [facility] / Plan: [facility] NON STAFF / Product Type: *No Product type* / Care Gap Reviewed:: Reminder: Reminder note to check Health Maintenance for items below Health Maintenance items due: DEPRESSION SCREENING due on 11/28/2019 COVID-19 VACCINE(3 - Booster for Moderna series) due on 10/19/2020 Advanced Directives Completed: Have you ever planned for future healthcare decisions with a power of business attorney, living will, or advance directives? No. Please bring a copy to your next appointment or email to [email or web address] Referrals: N/A Message Sent to Practice: NO Navigation Signature: Leonel Heller [facility] Navigator February 24, 2021 2:37 PM Allergies As of Date: 02/24/2021 Noted Allergy Reaction BEES 07/09/2005 Date Reviewed: 09/23/2020 Reviewed by: Doris Dean APRN.CNM - Fully Assessed Reason for Visit: Population [facility] Navigation Outreach [3910] Cmt: Offboarding Prescriptions as of 02/24/2021 - sertraline (ZOLOFT) 50 mg tablet Take 1 tablet by mouth once daily. 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 Author Type: Local Driver Type: Progress Notes Filed: 09/23/2020 2:41 PM Note Text: Aged Or Disabled Care Worker Visit 09/23/2020 1:59 PM CC: STD screening [...] prevention. Follow up 1 year for annual durable medical equipment technician exam or sooner as needed. Greater than 50% of this 30 minute visit was spent counseling the patient and coordinating care. Doris Dean APRN.[facility] noteNo assessment information availableWTriHealth McCull[facility] Work Phone: Summary Purpose Family History No Family History Records Found Relationship Condition Age at Onset Recorded Date/T janet father Diabetes mellitus Unknown mother Hypertension Unknown Advance Directives No Advanced Directives Records Found Advance Directive Response Recorded Date/ Time Living Will No May 28, 2023 12:36pm Power of Custom Seamstress No May 27 12:36pm Procedure Findings Note HNO ID: [id number] Author: Della Soni) Sherie Service: ? Author Type: Nurse Lace Machine Operator Type: Anesthesia Procedure Notes Filed: 01/21/2020 1:14 [...] attempts at approach: 1 SIGNATURE: Aleksandra Rehman APRN.CRNA PATIENT NAME: Tara Arguelles DATE: January 21, 2020 TIME: 1 (more content not included)... 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 COVID/ [facility] May 13, [...] 31, 2024 9:54 am BC Consult *COPAY $20 November 19 10:02am Reason for Visit Admit Date Displaced fracture of proxim al phalanx of left lesser toe(s), initial encou August 31, 2024 9:20am Additional Source Comments INFORMATION SOURCE (unrecogn ized section and content) DATE CREATED AUTHOR 01/27/2020 [facility] DATE CREATED AUTHOR AUTHOR'S ORGANIZ ATION 07/22/2021 [facility] DATE CREATED AUTHOR AUTHOR'S ORGANIZ ATION 11/27/2024 [facility] Care Teams (unrecognized sec tion and [...] August 31, 2024 End: August 31, 2024 JAZMYN Roy Attending Provider Active Start: August 31, 2024 End: August 31, 2024 Team Status: Active Member Role Status Dates Dr. Alon Erickson MD Primary Care Provider Active Start: August 31, 2024 JAZMYN Roy Attending Provider Active Start: August 31, 2024 JAZMYN Roy Referring Provider Active Start: August 31, 2024 Team Status: Inactive Member Role Status Dates Dr. Alon Erickson MD Primary Care Provider Active Start: August 31, 2024 End: August 31, 2024 JAZMYN Roy Attending Provider Active Start: August 31, 2024 End: August 31, 2024 JAZMYN Roy Referring Provider Active Start: August 31, 2024 [...] August 31, 2024 End: August 31, 2024 JAZMYN Roy Attending Provider Active Start: August 31, 2024 End: August 31, 2024 Team Status: Inactive Member Role/Relationship Status Dates Dr. Alon Erickson MD Primary Care Provider Active Start: August 31, 2024 End: August 31, 2024 JAZMYN Roy Attending Provider Active Start: August 31, 2024 End: August 31, 2024 JAZMYN Roy Referring Provider Active Start: August 31, 2024 [...] BE BASED ON THE PRIMARY CLINICAL RECORDS. [facility] [employer] [facility]. provides no warranty or guarantee of the accuracy or completeness of information in this document.
--- OUTSIDE RECORDS SUMMARY | 2024-12-03 13:12 | XMS RPT_ITS | CCD ---
Author Organization [facility] Care Team Providers Care Oyster Buyer Name Role Phone [employer] INSURANCE CASE MANAGER, Kiana Wray Unavailable Goldie FLETCHER, Sho Oropeza Unavailable Manisha Campoverde Unavailable Unavailable Georgina FLETCHER, Dr. Chi Primary Care Provider Dr. Alon Erickson MD Referring Provider Bryan Campuzano Attending Provider [phone] Attending Provider [address] Mead Referring [...] Primary Care Unavailable Oleghe, Efewongbe Referring Unavailable [facility] Primary Care Unavailable Kiana Fisher Attending Unavailable [facility] Hospital[facility]on oropeza Primary Care Unavailable Lane Mead Attending Unavailable [facility] o[facility]peza Referring Unavailable Allergies Allergy Classification Reported Allergen(s) Allergy Type Date of Onset Reaction(s) Facility (4 sources) venom-wasp Allergy to substance 05-28-2023 Anaphylaxis [facility] (1 source) venom-wasp Drug allergy (disorder) 11-19-2024 [facility] Repository Medications Current Medications Medication Drug Class(es) [...] then 1 tab x 4 days AZITHROMYCIN [id number] Sho Amezcua MD cephalexin 500 mg oral [...] {tbl} PO DAILY April 25, 2022 1:00am Prenat.Vits,Oh,Rxs-Yykp-Gly ic ( Vitamin) tablet (4 sources) Start: 02-26-2017 End: 09-26-2017 Prenat.Vits,Oh,Ffc-Jtfh-Jwf ic ( Vitamin) tablet Discontinued 1 {tbl} PO daily February 26, 2017 1:00am September 26, 2017 2:23pm Start: 02-26-2017 End: 09-26-2017 take 1 tablet by mouth once daily Prenat.Vits,Oh,Qcr-Dgou-Zuaps ( Vitamin) tablet Discontinued 1 TABLET PO daily February 26, 2017 1:00am September 26, 2017 2:23pm VIT-FE WFP-LA-VJVIA CAPS (3 sources) Start: 12-17-2016 FORMULA CAPS 1 daily VIT-FE DXC-GG-VIHPE CAPS [id number] Sho Amezcua MD VIT-FE DKN-PZ-DUQVT CAPS (9 sources) Start: 12-17-2016 FORMULA CAPS 1 daily VIT-FE FPU-MB-OSYIO CAPS [id number] Sho Amezcua MD promethazine hydrochloride 12.5 mg oral tablet (7 sources) Phenothiazine Start: 01-01-2017 take 1 tablet by mouth every six hours as needed PROMETHAZINE HCL 12.5 MG TABS 1 po q 6 hours as needed PROMETHAZINE HCL [id number] Sho Amezcua MD raNITIdine 150 mg oral [...] % success, consent signed after education from [facility] [place] given Other complications of (4 sources) High [...] Onset: 7 12-17-2016 Episodic Comment on above: [id number] hydroxypro gesterone injections in Other nutritional; endocrine; [...] Interpretation Reference Range Facility Comprehensive Metabolic Prof nmjosh 11-26-2024 Albumin [Mass/Vol] 4.2 g/dL Normal 3.5-5.0 [facility] Comment on above: Performed By: #### L 506.0400, L506.1001, L3300.1750, L500.4100, L501.9520, L3100.5125, L500.4050 #### [facility] [address] [place], [address] Albumin/Globulin [Mass ratio] 1.3 {ratio} Normal 0.9-2.4 [facility] Comment on above: Performed By: #### L 506.0400, L506.1001, L3300.1750, L500.4100, L501.9520, L3100.5125, L500.4050 #### [facility] [address] [place], [address] ALK PHOS 79 U/L Normal 35-104 [facility] Comment on above: Performed By: #### L 506.0400, L506.1001, L3300.1750, L500.4100, L501.9520, L3100.5125, L500.4050 #### [facility] [address] [place], [address] ALT [Catalytic activity/Vol] 15 U/L Normal <=34 [facility] Comment on above: Performed By: #### L 506.0400, L506.1001, L3300.1750, L500.4100, L501.9520, L3100.5125, L500.4050 #### [facility] [address] [place], [address] AST [Catalytic activity/Vol] 19 U/L Normal <=31 [facility] Comment on above: Performed By: #### L 506.0400, L506.1001, L3300.1750, L500.4100, L501.9520, L3100.5125, L500.4050 #### [facility] [address] [place], [address] Bilirubin [Mass/Vol] 0.49 mg/dL Normal 0.00-1.30 [facility] Comment on above: Performed By: #### L 506.0400, L506.1001, L3300.1750, L500.4100, L501.9520, L3100.5125, L500.4050 #### [facility] [address] [place], [address] BUN/CRE 17.2 RATIO Normal 10-20 [facility] Comment on above: Performed By: #### L 506.0400, L506.1001, L3300.1750, L500.4100, L501.9520, L3100.5125, L500.4050 #### [facility] [address] [place], [address] Calcium [Mass/Vol] 9.3 mg/dL Normal 7.6-11.0 [facility] Comment on above: Performed By: #### L 506.0400, L506.1001, L3300.1750, L500.4100, L501.9520, L3100.5125, L500.4050 #### [facility] [address] [place], [address] Chloride [Moles/Vol] 102 mmol/L Normal 98-108 [facility] Comment on above: Performed By: #### L 506.0400, L506.1001, L3300.1750, L500.4100, L501.9520, L3100.5125, L500.4050 #### [facility] [address] [place], [address] CO2 [Moles/Vol] 23.4 mmol/L Normal 21.0-32.0 [facility] Comment on above: Performed By: #### L 506.0400, L506.1001, L3300.1750, L500.4100, L501.9520, L3100.5125, L500.4050 #### [facility] [address] [place], [address] Creatinine [Mass/Vol] 0.68 mg/dL Low 0.70-1.20 [facility] Comment on above: Performed By: #### L 506.0400, L506.1001, L3300.1750, L500.4100, L501.9520, L3100.5125, L500.4050 #### [facility] [address] [place], [address] GAP 11 Normal 5-15 [facility] Comment on above: Performed By: #### L 506.0400, L506.1001, L3300.1750, L500.4100, L501.9520, L3100.5125, L500.4050 #### [facility] [address] [place], [address] GFR/1.73 sq M.predicted among non-blacks MDRD (S/P/Bld) [Vol rate/Area] 117 mL/min/{1.73_m2} Normal >60 [facility] Comment on above: Result Comment: mL/m in/1.73m2 CKD-EPI Creatinine Equation (2020) Performed By: #### L 506.0400, L506.1001, L3300.1750, L500.4100, L501.9520, L3100.5125, L500.4050 #### [facility] [address] [place], [address] Globulin (S) [Mass/Vol] 3.2 g/dL Normal 2.2-4.2 [facility] Comment on above: Performed By: #### L 506.0400, L506.1001, L3300.1750, L500.4100, L501.9520, L3100.5125, L500.4050 #### [facility] [address] [place], [address] Glucose [Mass/Vol] 92 mg/dL Normal 70-99 [facility] Comment on above: Performed By: #### L 506.0400, L506.1001, L3300.1750, L500.4100, L501.9520, L3100.5125, L500.4050 #### [facility] [address] [place], [address] Potassium [Moles/Vol] 4.6 mmol/L Normal 3.3-5.1 [facility] Comment on above: Performed By: #### L 506.0400, L506.1001, L3300.1750, L500.4100, L501.9520, L3100.5125, L500.4050 #### [facility] [address] [place], [address] Sodium [Moles/Vol] 136 mmol/L Normal 133-145 [facility] Comment on above: Performed By: #### L 506.0400, L506.1001, L3300.1750, L500.4100, L501.9520, L3100.5125, L500.4050 #### [facility] [address] [place], [address] T PROT 7.4 g/dL Normal 5.9-8.4 [facility] Comment on above: Performed By: #### L 506.0400, L506.1001, L3300.1750, L500.4100, L501.9520, L3100.5125, L500.4050 #### [facility] [address] [place], [address] Urea nitrogen [Mass/Vol] 12 mg/dL Normal 4-19 [facility] Comment on above: Performed By: #### L 506.0400, L506.1001, L3300.1750, L500.4100, L501.9520, L3100.5125, L500.4050 #### [facility] [address] [place], [address] Estradiolon 11-26-2024 ESTRADIOL 21.4 pg/mL Normal [facility] Comment on above: Result Comment: FEMA LES [...] 506.0400, L506.1001, L3300.1750, L500.4100, L501.9520, L3100.5125, L500.4050 ####[facility] [address] [place], [address] Follicle Stimulating Hormone on 11-26-2024 FSH 5.0 mIU/mL Normal [facility] Comment on above: Result Comment: FEMA LE: Follicular: 1.4 - 18.1 mIU/mL Midcycle: 3.4 - 33.4 mIU/mL Luteal: 1.5 - 9.1 mIU/mL Post Menopause: 23.0 - 116.3 mIU/mL MALE: 1.4 - 18.1 mIU/mL Performed By: #### L 506.0400, L506.1001, L3300.1750, L500.4100, L501.9520, L3100.5125, L500.4050 #### [facility] [address] [place], [address] (300) Lipid Profileon 11-26-2024 CHOL:HDL 2.67 Normal [facility] Comment on above: Performed By: #### L 506.0400, L506.1001, L3300.1750, L500.4100, L501.9520, L3100.5125, L500.4050 #### [facility] [address] [place], [place], [address] Cholesterol [Mass/Vol] 178 mg/dL Normal <=200 [facility] Comment on above: Result Comment: Chol esterol level, Desirable <200 mg/dL Borderline high cholesterol 200-239 mg/dL High cholesterol >=240 mg/dL Recommendations of the NCEP Adult Treatment Panel for the following risk-cutoff thresholds for the [place] population. Performed By: #### L 506.0400, L506.1001, L3300.1750, L500.4100, L501.9520, L3100.5125, L500.4050 #### [facility] [address] [place], [address] Cholesterol in HDL [Mass/Vol] 67 mg/dL Normal [facility] Comment on above: Result Comment: Kavitha onal Cholesterol Education Program (NCEP) guidelines: <40 mg/dL: Low HDL-cholesterol (major risk factor for CHD) >= 60 mg/dL: High HDL-cholesterol (negative risk factor for CHD) HDL-cholesterol is affected by a number of factors, e.g. smoking, exercise, hormones, sex and age. Performed By: #### L 506.0400, L506.1001, L3300.1750, L500.4100, L501.9520, L3100.5125, L500.4050 #### [facility] [address] [place], [address] Cholesterol in LDL [Mass/Vol] 86 mg/dL Normal [facility] Comment on above: Result Comment: Bord uoqjmn=551-808 mg/dL Higher Lpmd=496 mg/dL or greater Friedwald Equation for LDL-C Performed By: #### L 506.0400, L506.1001, L3300.1750, L500.4100, L501.9520, L3100.5125, L500.4050 #### [facility] [address] [place], [address] Cholesterol in VLDL [Mass/Vol] 25 mg/dL Normal 5-40 [facility] Comment on above: Performed By: #### L 506.0400, L506.1001, L3300.1750, L500.4100, L501.9520, L3100.5125, L500.4050 #### [facility] [address] [place], [address] Triglyceride [Mass/Vol] 126 mg/dL Normal [facility] Comment on above: Result Comment: The drugs N-Acetylcysteine and Metamizole may falsely depress this assay. Normal range: <150 mg/dL Borderline High: 150-199 mg/dL High: 200-499 mg/dL Very High: >500 mg/dL Performed By: #### L 506.0400, L506.1001, L3300.1750, L500.4100, L501.9520, L3100.5125, L500.4050 #### [facility] [address] [place], [address] T4 Free Directon 11-26-2024 T4 FREE DIRECT 1.10 ng/dL Normal 0.76-1.46 [facility] Comment on above: Performed By: #### L 506.0400, L506.1001, L3300.1750, L500.4100, L501.9520, L3100.5125, L500.4050 #### [facility] [address] [place], [address] Thyroid Stim Hormone (TSH)on 11-26-2024 TSH 2.260 uIU/mL Normal 0.300-4.200 [facility] Comment on above: Performed By: #### L 506.0400, L506.1001, L3300.1750, L500.4100, L501.9520, L3100.5125, L500.4050 #### [facility] [address] [place], [place], [address] Vitamin D,25 Hydroxyon 11-26 Vitamin D 25-OH 35.6 ng/mL Normal 30-100 [facility] Comment on above: Result Comment: Roxie min D Status Deficiency: <20 ng/mL (50nmol/L) Insufficiency: 20-30 ng/mL (50-75 nmol/L) Sufficiency: 30-100 ng/mL (75-250 nmol/L) Toxicity: >100 ng/mL (>250 nmol/L) Performed By: #### L 506.0400, L506.1001, L3300.1750, L500.4100, L501.9520, L3100.5125, L500.4050 #### [facility] [place], [address] [facility] Office Visit Reporton 11-19-2024 [facility] Office Visit Report [facility] [address], [address] [place] [address] OFFICE VISIT Date of Service: 11/19/24 MR#: [id number] Acct: [id number] Name: TARA ARGUELLES Rep #: [id number] : 1990 Provider: SUSHMA Pride Age/Sex: 34/F [place] [facility] [place]: Signed Intake Vital Signs 10/28/23 11:14 11/19/24 10:11 Height 5 ft 4 in 5 ft 4 in Weight: 169 lb 4 oz BMI 29.0 BP 112/71 Intake Visit Reasons: BC Consult *COPAY $20 Eating Disorder Specialist Required: No Is patient in pain?: No [...] No : No Control Method: bilat salp [facility] Medical History Displaced fracture of proximal phalanx [...] live - full term 5lbs 5oz Female [facility] JORDAN 08/16/17 Aisha 38 live - full term Female epidural [facility] ROS Const Constitutional: Reports [...] Other fatigue (more content not included)... Normal [facility] Foot min 3 Viewson Foot min 3 Views [facility] Imaging Services [address] [place], [place] [address] Foot min 3 Views MR#: [id number] Acct: [id number] Name: TARA ARGUELLES Rep #: [id number] : 1990 F 34 From: [place] PCP: Dr. Alon Erickson MD Status: REG CLI Study: Foot min 3 Views Date of Exam: 08/31/24 Exam# [id number] Ordering Dr: Lane Newman PA PROCEDURE: FOOT [...] or joint space narrowing identified. Reading Location: [place] [address] CC: Dr. 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 [facility] Medical History (Updated 08/31/24 @ 10:20 by [...] flexion/extension of the same. PMH NC. No bjtn-upk-ucewyay medications taken to assist. No other associated [...] the above. This note was generated with [employer] dictation software. It may contain incorrect words, spelling, and punctuation that were not noted in checking the note before signing. Orders: Orders Foot min 3 Views Today M79.672 - Pain in left foot Referrals Podiatry S92.512A - Displaced fracture of proximal phalanx of left lesser toe(s), initial encounter for closed fracture 08/31/24 1104 Date (more content not included)... 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 COVID/ [facility] Chief Complaint: est care Allergies [...] Stratton Signature: Date (if applicable) CC: Normal [facility] - Microbiology an d Antimicrobial susceptibilityOrdered By: Bryan Franco on 05-13-2024 SARS-CoV-2 (COVID-19) RNA SHIVA+probe Ql (Unsp spec) Not detected [facility] No Panel InformationOrdered By: Bryan Franco on 05-13-2024 POC Nasal Swab Influenza A,B Not detected [facility] POC Nasal Swab RSV Not detected [facility] Rapid group A Streptococcus antigen assay at point of careOrdered By: Bryan Franco on 05-13-2024 S. pyogenes Ag IA.rapid Ql (Throat) Negative [facility] Urgent Care Visit Reporton 0 05-13-2024 Urgent Care Visit Report [facility] [address], [address] [place] [address] OFFICE VISIT Date of Service: 05/13/24 MR#: [id number] Acct: [id number] Name: TARA ARGUELLES Rep #: [id number] : 1990 Provider: SUSHMA Franco Age/Sex: 33/F Location: [facility] [place] Status: Signed Intake Vital Signs 10/28/23 11:14 [...] ST,cough and chills going on since yesterday. [facility] Medical History (Updated 05/13/24 @ 11:25 by [...] HPI HPI Details: TARA ARGUELLES, is a 33 [...] FLU A B Last Edit by Kassie Delgdao MA on 05/13/24 11:25 CEPHEID RSV PCR NOT DETECTED Last Edit by Kassie Delgado MA on 05/13/24 11:25 Coding Level of Care Code Off vis,est,level 3 Diagnoses Viral illness B34.9 Assessment and Plan Assessment and Plan (1) Viral illness: Status: Acute Plan: Patient tested negative for COVID, flu, RSV, and strep. Patient symptoms are most likely viral in origin. She will use haji-eoa-crmqoyj treatments as necessary and follow-up with PCP if symptoms not improving. Orders: Orders POC Cepheid Covid, FluAB, RSV Today POC Estephania Rapid Strep A Today 05/13/24 1126 Date Bryan Joan INSURANCE CASE MANAGER-C Cosigner Signature: Date (if applicable) CC: Normal [facility] Office Visit Reporton 2023 Office Visit Report [facility] [address] [place] [address] OFFICE VISIT Date of Service: 12/02/23 MR#: [id number] Acct: [id number] Patient: TARA ARGUELLES Rep #: [id number] : 1990 Provider: JAZMYN Shay Age/Sex: 33/F Location: [facility] [place] Status: Signed Intake Vital Signs 10/28/23 11:14 [...] Cosigner Signature: Date (if applicable) CC: Anita [facility] CNOVon 05-23-2021 CNOV Office Visit (FAMPWS ) TARA ARGUELLES ([id number]) 1990 [facility] Date Time Provider Department 05/23/21 12:00 PM [facility] During your visit today, we recorded [...] plan. See patient instructions. Mj Collier DO [address] [place] [address] Referring Provider: SELF [200] Allergies As of Date: 05/23/2021 Noted Allergy Reaction BEES 07/09/2005 Date Reviewed: 03/10/2021 Reviewed by: Madeline Dey APRN.EDUCATIONAL TECHNOLOGY SPECIALIST - Fully Assessed Reason for Visit: Weight [...] Problem List (more content not included)... [facility] STEPHN [facility] (CORPMN) TARA ARGUELLES ([id number]) 1990 F [facility] Date Time Provider Department 03/11/21 CAS DIAS During your visit today, we recorded the following information about you: Allergies As of Date: 03/11/2021 Noted Allergy Reaction BEES 07/09/2005 Date Reviewed: 03/10/2021 Reviewed by: Madeline Dey APRN.CNP - Fully Assessed Reason for Visit: [facility] COVID Outreach [3886] Prescriptions as of 03/11/2021 [...] Encounter Status:Closed by TULIO YOUNG on 03/11/21 [facility] CNOVon 03-10-2021 CNOV Office Visit (UCWSTR ) TARA ARGUELLES ([id number]) 1990 [facility] Date Time Provider Department 03/10/21 9:30 AM MADELINE DEY [facility] [place] During your visit today, we recorded the [...] Diagnosis:Sore throat [J02.9] Order(s):STREP A MOLECULAR (POC) [3841448] Order #: [id number]. #:[id number] CAREGIVER COVID19 [SQCGCOVD] Order #: [id number] FUTURE predniSONE (DELTASONE) 20 mg tabletTake 2 [...] [F40.10] 01/28/ (more content not included)... Normal [facility] Caregiver [id number] 03-10-20 SARS-CoV-2 (COVID-19) RNA SHIVA+probe Ql (Unsp spec) UPPER RESPIRATORY TRACT SWAB Normal [facility] Comment on above: Performed By: #### C GCOVD ####[facility] [place], [place] [phone] SARS-CoV-2 (COVID-19) RNA SHIVA+probe Ql (Unsp spec) Negative for COVID19 (SARS CoV2) by RT-PCR or equivalent method. Normal Negative for COVID19 (SARS CoV2) by RT-PCR or equivalent method. [facility] Comment on above: Result Comment: This test was developed and its performance characteristics determined by [facility] [place]. This test has been authorized by FDA under an Emergency Use Authorization (EUA). This test has been validated in accordance with the FDA's Guidance Document Policy for Diagnostics Testing in Laboratories Certified to Perform High Complexity Testing under CLIA prior to Emergency use Authorization for Coronavirus Disease 2019 during the Public Health Emergency issued on May 09, 2019. Test performed by [facility], [facility] [place], [address] [place], [place] [address]. Performed By: #### C GCOVD ####[facility] [place], [place] [phone] CNOVon 11-30-2020 CNOV Office Visit (PEDSWS ) TARA ARGUELLES ([id number]) 1990 F [facility] Date Time Provider Department 11/30/20 9:00 [...] QUADRIVALENT 6 MO - 64 YRS IM [85610HPP] Order #: [id number] Prescriptions as of 11/30/2020 - sertraline (ZOLOFT) 50 mg tablet Take 1 tablet by mouth once daily. Problem List As Of Date 11/30/2020 Noted Resolved Patient requested diagnostic testing [Z01.89] 09/27/2011 12/11/2011 Adnexal mass [N94.89] 05/04/2015 Test anxiety [F41.8] 02/03/2016 Social anxiety disorder [F40.10] 01/28/2018 Encounter Status:Closed by ОЛЕГ DELACRUZ CMA on 11/30/20 Normal [facility] Bact/Cand Vag Grm Ston 09-23 Bact/Cand Vag Grm St Sp. Request/Comment : - Swab Smear Result - BACTERIAL VAGINOSIS RESULT: Stain results consistent with normal vaginal ned. No Yeast observed No Polymorphonuclear Leukocytes Normal [facility] Comment on above: Performed By: #### [facility] ####[facility] [id number] [place], [place] [address]IachzzrzcSelect [facility] [address] [place], [place] [phone] ABENAOVon 09-23-2020 [facility] Office Visit (OBGYWM ) TARA ARGUELLES ([id number]) 1990 F [facility] Date Time Provider Department 09/23/20 1:45 PM DORIS DEAN During your visit today, we recorded the following information about you: Blood pressure Weight Last Period 118/66 72.6 kg 09/09/20 Doris Dean APRN.CNM 09/23/2020 2:41 PM Signed [employer] Visit 09/23/2020 1:59 PM CC: STD screening [...] prevention. 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 Greater than [...] [Z11.3] Order(s):GC/CHLAMYDIA DNA DET [SQGCCAMP] Order #: [id number] BACT/LALI VAG GRAM STAIN [SQBVCNSM] Order #: [id number] TRICHOMONAS PREP/ANTIGEN [SQTRICHO] Order #: [id number] HIV 1 2 COMBO(AG/AB),WITH REFLEX TO DIFFERENTIATION [SQHIV12] Order #: [id number] FUTURE SYPHILIS TOTAL W/REFLEX [SQSYPHTX] Order #: [id number] FUTURE HEP B SURF AG SCRN [SQHBSAG] Order #: [id number] FUTURE HCV QUANT RNA BY PCR [SQHCQPCR] Order #: [id number] FUTURE Prescriptions as of 09/23/2020 - sertraline [...] Status:Closed by DORIS DEAN on 09/23/20 Normal [facility] [facility] GC/Chlamydia Amplifon 2020 Chlamydia Amplif Negative Normal [facility] Comment on above: Performed By: #### G CCT ####[place] [phone] GC Amplification Negative Normal [facility] Comment on above: Performed By: #### G CCT ####[place] [phone] GC/Chlam Amp Source Cervix Normal [facility] Comment on above: Performed By: #### G CCT ####[place] [phone] [id number] Ag +HIV12 Abon 09-23 HIV 12 Ag/Ab Non-Reactive Normal Non Reactive [facility] Comment on above: Performed By: #### H CQPCR, HBSAG, HIV12C, SYPHTX ####[place] [phone] HIV-1/2 Antibody Normal [facility] Comment on above: Result Comment: Test Not Indicated Negative No evidence of HIV-1 or HIV-2 infection. Should recent infection be suspected, repeat testing may be considered 2-3 weeks after this draw. HIV Information: [place] Rev. Code 3701.243(E): This information has been [...] By: #### H CQPCR, HBSAG, HIV12C, SYPHTX ####[address] [place], [place] [phone] Hepatitis B Surf. Agon 09-23 Hepatitis B Surf. Ag Negative Normal Negative [facility] Comment on above: Performed By: #### H CQPCR, HBSAG, HIV12C, SYPHTX ####[address] [phone] Hepatitis C RNAon 09-23-2020 Hepatitis C RNA Not detected Normal [facility] Comment on above: Result Comment: Refe rence Range: Negative for HCV RNA The Linear Range of this assay is 15 IU/mL to 100,000,000 IU/mL. Performed By: #### H CQPCR, HBSAG, HIV12C, SYPHTX ####[address] [phone] Syphilis Ttl w/Reflxon 09-23 Syphilis Interp Cannot exclude recen t Treponemal infection if specimen collected within 7 to 10 days after appearance of suspect lesions or 2 to 3 weeks after an exposure. Clinical correlation is required. Normal [facility] Comment on above: Performed By: #### H CQPCR, HBSAG, HIV12C, SYPHTX ####[address] [phone] Syphilis Screen Rslt Non-Reactive Normal Non Reactive [facility] Comment on above: Performed By: #### H CQPCR, HBSAG, HIV12C, SYPHTX ####[place] [id number] [place], [place] [phone] Trichomonas Prepon Trichomonas Prep Sp. Request/Comment: - Swab Smear Result - Negative for Trichomonas vaginalis antigen This test was developed and its performance characteristics determined by [facility]'s Juma Domo [facility] Pathology [facility] Laboratory Medicine [place] ([facility]). It has not been cleared or approved by the FDA. [facility] is regulated under CLIA as qualified to perform high complexity testing. This test is used for clinical purposes. It should not be regarded as investigational or for research. Normal [facility] Comment on above: Performed By: #### T ADRIANNE ####[id number] [place], [place] [address]HfnaxlgjuSt. [facility] Hospital[address] [place], [place] [phone] Dre 08-26-2020 NATY Telephone (FAMRebecaWS) TARA ARGUELLES ([id number]) 1990 [facility] Date Time Provider Department 08/26/20 ROBERTA GUTHRIE During your visit today, we recorded the following information about you: Gloria Lopez 08/26/2020 4:23 PM Signed Patient requesting gallbladder ultrasound can be reached at [phone] Thank you Gloria Guthrie APRN.STEPH 08/26/2020 4:28 [...] pain [R10.11] Order(s):US ABD RT UPPER QUADRANT [[id number]] Order #: [id number] FUTURE Prescriptions as of 08/26/2020 Sig: SERTRALINE 50 MG TABLET Take 1 tablet by mouth once d* Problem List As Of Date 08/26/2020 Noted Resolved Patient requested diagnostic testing [Z01.89] 09/27/2011 12/11/2011 Adnexal mass [N94.89] 05/04/2015 Test anxiety [F41.8] 02/03/2016 Social anxiety disorder [F40.10] 01/28/2018 Encounter Status:Closed by CASSANDRA CARDENAS on 08/28/20 [facility] 07-28-2020 [facility] Telephone (FAMWS) TARA ARGUELLES ([id number]) 1990 [facility] Date Time Provider Department 07/28/20 ROBERTA GUTHRIE [facility] During your visit today, we recorded the following information about you: Roberta Guthrie APRN.CNP 07/28/2020 1:58 PM Signed Lab results communicated via turboBOTZ. Roberta Guthrie APRN.CNP Allergies As of Date: [...] Encounter Status:Closed by ROBERTA GUTHRIE on 07/28/20 [facility] ANES POSTPROC EVALon 020 ANES POSTPROC EVAL HNO ID: [id number] Author: Cj Ingram Service: ? Author Type: Physician Type: Anesthesia Postprocedure Evaluation Filed: 01/21/2020 2:46 PM Note Text: POST ANESTHESIA EVALUATION NOTE : 1990 Procedure Summary Date: 01/21/20 Room / Location: IN OR / IN OR Anesthesia Start: 1259 Anesthesia Stop: 1345 [...] January 21, 2020 TIME: 2:46 PM CSN: [id number] [facility] ANES PRE-OPon 01-21-2020 ANES PRE-OP HNO ID: [id number] Author: Cj Ingram Service: ? Author Type: [...] January 21, 2020 TIME: 11:24 AM CSN: [id number] [facility] NURSING PROGon 01-21-2020 NURSING PROG HNO ID: [id number] Author: Steffanie (Rn) AG Bran Service: Nursing [...] Signed By: Steffanie Bran RN In Department: [facility] SURGERY [facility] OPERATIVE NOon 01-21-2020 OPERATIVE NO HNO ID: [id number] Author: Juana Ramos Service: Gynecology Author Type: Physician Type: Operative Report Filed: 01/21/2020 1:38 PM Note Text: CALENDERER OPERATIVE/PROCEDURE REPORT LOG ID: [id number] Surgery/Procedure Date: 01/21/2020 Incision/Procedure Start Time: 1:20 PM Incision Close/Procedure End Time: 1:30 pm Surgeon(s)/Procedurali st(s) and Rn Compliance(s): Surgeon(s) and Role: * Juana Ramos - [...] 2020 TIME: 1:35 PM PAGER/CONTACT #: Anita [facility] SURGICAL PATHOLOGYon 020 SURGICAL PATHOLOGY Specimen originated from [facility] Specimen #: [id number] Submitting Physician: Juana Ramos M.D. FINAL DIAGNOSIS [...] is pinpoint, intact and devoid of contents. Lubricating Specialist sections are submitted as follows: A1 fallopian tube #1 and bisected fimbriated end, A2 fallopian tube #2 and bisected fimbriated end. CANDIDA/glw 01/22/2020 Gross examination performed at [facility], [address] [place] [address] [place] [address] Date of Report: 01/26/2020 Date of Procedure: 01/21/2020 Date of Receipt: 01/22/2020 Submitted by: Juana Ramos M.D. Location: [facility] Diagnostic interpretation performed at [facility], [address] [place] [address]. 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 Patient is getting COVID testing [...] off work. Becky Arroyo RN Progress Notes ([facility]): Jen Gonzales PA-C 01/13/2020 7:28 AM Signed Spoke with patient - meets criteria for Covid-19 testing. Symptoms: DUMAS, cough, diarrhea, myalgia x 1 day; some reduced sense of taste (anterior tongue). Covid 19 test ordered; patient instructed to schedule test via [facility] RONEN. 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 Jen Gonzales PA-C Physician Rn Compliance Occupational Health [facility] COVID-19 (Novel Coronavirus): ? You are [...] clean your hands with an alcohol-based hand human service specialist that contains at least 60% alcohol. ? Wash your hands often with soap and water for at least 20 seconds, especially after blowing your nose, coughing, or sneezing; going to the bathroom; and before eating or preparing food. If soap and water are not readily available, use an alcohol-based hand human service specialist with at least 60% alcohol, covering all [...] isolation precautions should be made on a simb-nw-hphz basis, in consultation with healthcare providers and [...] 20 seconds or use an alcohol-based hand human service specialist that contains 60 to 95% alcohol, covering [...] with soap and water or alcohol-based hand human service specialist. Next, remove and dispose of facemask, and immediately clean your hands again with soap and water or alcohol-based hand human service specialist. ? Avoid sharing household items with the [...] soap and water or an alcohol-based hand human service specialist) immediately after removing your gloves. ? Read [...] soap and water or an alcohol-based hand human service specialist) immediately after handling these items. Soap and [...] being coughed on). Jen Gonzales PA-C Physician Rn Compliance Occupational Health [facility] Lab Report: Rapid Plasmin Re agin (RPR)on 03-01-2017 Reagin antibody presence NONREACTIVE Invalid Interpretation Code NONREACTIVE [facility] Lab Report: HIV Screen 4TH G EN W/Confirmon 02-27-2017 GE use only - for LinkLogic import when terms are not otherwise specified Non Reactive Invalid Interpretation Code Non Reactive [facility] Lab Report: Hepatitis B Surf mariana Agon 02-27-2017 BSA (Body Surface Area) Negative Invalid Interpretation Code Negative [facility] Lab Report: Rubella IgGon rubella virus antibody, IgG 80.5 [iU]/mL Invalid Interpretation Code [facility] Blood Bank: Type AND Screeno n 02-26-2017 GE use only - for LinkLogic import when terms are not otherwise specified Negative Normal [facility] Lab Report: CBC W/Diff, Auto matedon 02-26-2017 Basophils/100 leukocytes 0.1 % Invalid Interpretation Code 0-1 [facility] Eosinophils/100 leukocytes 1.6 % Invalid Interpretation Code 0-5 [facility] Erythrocytes (RBC) 4.03 10*6/uL Low 4.2-5.4 [place] Hematocrit (HCT) 35.3 % Low 37-47 [facility] Hemoglobin (HGB) 12.1 g/dL Invalid Interpretation Code 12.0-15.0 [facility] immature granulocytes, percentage of total cells, blood 0.300 % Invalid Interpretation Code 0.0-0.9 [facility] Lymphocytes 1.34 X10 3/UL Invalid Interpretation Code 0.83-4.51 [facility] Lymphocytes/100 leukocytes 17.5 % Low 19-41 [facility] MCH 30.0 pg Invalid Interpretation Code 27.0-32.0 [facility] MCHC 34.3 G/GL Invalid Interpretation Code 32-36 [facility] MCV 87.6 fL Invalid Interpretation Code 81-99 [facility] Monocytes/100 leukocytes 7.3 % Invalid Interpretation Code 0-10 [facility] neutrophil count, blood 5.6 X10 3/UL Invalid Interpretation Code 2.0-7.7 [facility] Neutrophils/100 leukocytes 73.2 % High 47-70 [facility] Platelets 242 10*3/mm3 Invalid Interpretation Code 150-450 [facility] PMV by Omid 10.0 fL Invalid Interpretation Code 6.2-12.0 [facility] RDW-CA 12.5 % Invalid Interpretation Code 11.6-14.6 [facility] red blood cell distribution width, size density 39.3 fL Invalid Interpretation Code 35.1-43.9 [facility] WBC (Leukocytes) 7.7 10*3/uL Invalid Interpretation Code 4.4-11.0 [facility] Office Visit: OB Routineon 1 03-30-2016 Documentation of current medications (procedure) Done Invalid Interpretation Code [facility] Tobacco smoking status NYIS Tobacco smoking status NHIS Invalid Interpretation Code [facility] Tobacco smoking status NHIS Never Invalid Interpretation Code [facility] Tobacco use [facility] Never smoker Invalid Interpretation Code [facility] Urine, glucose presence N Invalid Interpretation Code [facility] Urine, protein N Invalid Interpretation Code [facility] Office Visit: OB Routineon 1 Albumin Ql (U) N Invalid Interpretation Code [facility] crown rump length by ultrasound 9.6 mm Invalid Interpretation Code [facility] Documentation of current medications (procedure) Done Invalid Interpretation Code [facility] estimated date of confinement by sonogram 08/18/2017 Invalid Interpretation Code [facility] cardiac activity by sonography Yes Invalid Interpretation Code [facility] number by ultrasound 1 Invalid Interpretation Code [facility] gestational age by ultrasound 7W 0D Invalid Interpretation Code [facility] Glucose Test strip mass conc (U) N Invalid Interpretation Code [facility] OB ultrasound, gestational sac Yes Invalid Interpretation Code [facility] Protein mass conc Done Invalid Interpretation Code [facility] Tobacco smoking status NHIS Never smoker Invalid Interpretation Code [facility] Tobacco use [facility] Never smoker Invalid Interpretation Code [facility] Urine, glucose presence N Invalid Interpretation Code [facility] Urine, protein N Invalid Interpretation Code [facility] Office Visit: OB Initialon 1 Documentation of current medications (procedure) Done Invalid Interpretation Code [facility] Fall risk assessment No Invalid Interpretation Code [facility] Herpes Simplex Virus Genital no Invalid Interpretation Code [facility] Tobacco smoking status NHIS Never Invalid Interpretation Code [facility] Tobacco use [facility] Never smoker Invalid Interpretation Code [facility] Vital Signs Date Time Vital Sign Value Performing Clinician Faci elizabethy 11-19-2024 10:11-0400 Body height 162.[address] Alon Erickson MD Work Phone: [facility] 11-19-2024 10:11-0400 Body mass index (BMI) [Ratio] 29 kg/m2 Dr. Alon Erickson MD Work Phone: [facility] 11-19-2024 10:11-0400 Body weight 76.[address] Alon Erickson MD Work Phone: [facility] 11-19-2024 10:11-0400 Diastolic blood pressure 71 mm[Hg] Dr. Alon Erickson MD Work Phone: [facility] 11-19-2024 10:11-0400 Systolic blood pressure 112 mm[Hg] Dr. Alon Erickson MD Work Phone: [facility] 08-31-2024 10:05-0400 Body temperature 98.1 [degF] Dr. Alon Erickson MD Work Phone: [facility] 08-31-2024 10:05-0400 Diastolic blood pressure 80 mm[Hg] Dr. Alon Erickson MD Work Phone: [facility] 08-31-2024 10:05-0400 Heart rate 61 /min Dr. Alon Erickson MD Work Phone: [facility] 08-31-2024 10:05-0400 Respiratory rate 16 /min Dr. Alon Erickson MD Work Phone: [facility] 08-31-2024 10:05-0400 SaO2% (BldA) [Mass fraction] 98 % Dr. Alon Erickson MD Work Phone: [facility] 08-31-2024 10:05-0400 Systolic blood pressure 120 mm[Hg] Dr. Alon Ercikson MD Work Phone: [facility] 05-13-2024 10:42-0500 Body temperature 98.3 [degF] Dr. Alon Erickson MD Work Phone: [facility] 05-13-2024 10:42-0500 Diastolic blood pressure 80 mm[Hg] Dr. Alon Erickson MD Work Phone: [facility] 05-13-2024 10:42-0500 Heart rate 69 /min Dr. Alon Erickson MD Work Phone: [facility] 05-13-2024 10:42-0500 SaO2% (BldA) [Mass fraction] 99 % Dr. Alon Erickson MD Work Phone: [facility] 05-13-2024 10:42-0500 Systolic blood pressure 120 mm[Hg] Dr. Alon Erickson MD Work Phone: [facility] 05-28-2023 13:31-0400 Body temperature 97.5 [degF] [facility] 05-28-2023 13:31-0400 Diastolic blood pressure 72 mm[Hg] [facility] 05-28-2023 13:31-0400 Heart rate 74 /min [facility] 05-28-2023 13:31-0400 Respiratory rate 16 /min [facility] 05-28-2023 13:31-0400 SaO2% (BldA) [Mass fraction] 98 % [facility] 05-28-2023 13:31-0400 Systolic blood pressure 122 mm[Hg] [facility] 05-28-2023 12:23-0400 Body height 162.56 cm [facility] 05-28-2023 12:23-0400 Body mass index (BMI) [Ratio] 27.4 kg/m2 [facility] 05-28-2023 12:23-0400 Body weight 72.57 kg [facility] 01-28-2017 05:29-0500 BMI (Body Mass Index) 26.67 kg/m2 Sho Amezcua MD [facility] 01-28-2017 05:29-0500 BP Diastolic 70 mm[Hg] Sho Amezcua MD [facility] 01-28-2017 05:29-0500 BP Systolic 113 mm[Hg] Sho Amezcua MD [facility] 01-28-2017 05:29-0500 Weight 70.49 kg Sho Amezcua MD [facility] 12-31-2016 11:01-0400 BMI (Body Mass Index) 25.85 kg/m2 Sho Amezcua MD [facility] 12-31-2016 11:01-0400 Body Temperature 97.7 [degF] Sho Amezcua MD [facility] 12-31-2016 11:01-0400 BP Diastolic 61 mm[Hg] Sho Amezcua MD [facility] 12-31-2016 11:01-0400 BP Systolic 108 mm[Hg] Sho Amezcua MD [facility] 12-31-2016 11:01-0400 Pulse (Heart Rate) 71 /min Sho Amezcua MD [facility] 12-31-2016 11:0400 Respiratory Rate 16 /min Sho Amezcua MD [facility] 12-31-2016 11:0400 Weight 68.31 kg Sho Amezcua MD [facility] 12-17-2016 15:170400 BMI (Body Mass Index) 25.57 kg/m2 Sho Amezcua MD [facility] 12-17-2016 15:17-0400 BP Diastolic 70 mm[Hg] Sho Amezcua MD [facility] 12-17-2016 15:170400 BP Systolic 125 mm[Hg] Sho Amezcua MD [facility] 12-17-2016 15:0400 Height 162.56 cm Sho Amezcua MD [facility] 12-17-2016 15:0400 Pulse (Heart Rate) 75 /min Sho Amezcua MD [facility] 12-17-2016 15:0400 Weight 67.58 kg Sho Amezcua MD [facility] 12-17-2016 15:170400 Weight 67.59 kg Sho Amezcua MD [facility] Encounters Encounter Date Encounter Type Care Provider Facility Start: 12-03-2024 ambulatory Alon Cunningham ty:[facility] Start: 11-26-2024 ambulatory Kiana Fisher Facility :[facility] Start: 11-19-2024 End: 11-19-2024 Patient encounter procedure Kiana Fisher INSURANCE CASE MANAGER-C [facility] Work Phone: Start: 11-19-2024 End: 11-19-[address] Alon Erickson MD Work Phone: [facility] Start: 08-31-2024 End: 08-31-[address] Newman [facility] Work Phone: Start: 08-31-2024 End: 08-31-[address] Alon Erickson MD Work Phone: [facility] Work Phone: Start: 08-31-2024 End: 08-31-[address] ELDRIDGE Facility:[facility] Start: 05-13-2024 End: 05-13-2024 Patient encounter procedure Bryan Franco INSURANCE CASE MANAGER-C [facility] Work Phone: Start: 05-13-2024 End: 05-13-2024 ambulatory Bryan Franco Facility:[facility] Start: 12-02-2023 End: 12-02-2023 ambulatory Alon Erickson Facility:[facility] Start: 05-28-2023 End: 05-28-2023 Emergency department patient visit [facility] Work Phone: Procedures Date Procedure Procedure [...] Activity Detail Author Start: 08-31-2024 Patient referral [facility] Work Phone: Start: 05-28-2023 [facility] Start: 05-28-2023 Hepatitis B surface antigen measurement [facility] Start: 05-28-2023 Hepatitis C antibody measurement [facility] Start: 01-28-2017 End: 01-28-2017 Appointment Appointment [facility] Start: 12-31-2016 End: 12-31-2016 Appointment Appointment [facility] Start: 12-17-2016 End: 12-19-2016 *CBC with Differential *CBC with Differential [facility] Start: 12-17-2016 End: 12-19-2016 *GC/Chlamydia *GC/Chlamydia [facility] Start: 12-17-2016 End: 12-19-2016 *HEBSAG - Hep B Surface Antigen 6510 *HEBSAG - Hep B Surface Antigen 6510 [facility] Start: 12-17-2016 End: 12-19-2016 *HIV antibody *HIV antibody [facility] Start: 12-17-2016 End: 12-19-2016 *TS Type and Screen *TS Type and Screen [facility] Start: 12-17-2016 End: 12-17-2016 *UA - Urinalysis w/o Micro *UA - Urinalysis w/o Micro [facility] Start: 12-17-2016 End: 12-19-2016 Reagin antibody presence *RPR [facility] Start: 12-17-2016 End: 12-19-2016 Rubella virus Ab [Units/volume] in Serum *Rubella Screen [facility] Start: 12-17-2016 End: 12-19-2016 Urine culture, bacteria *CUUR - Culture, Urine ([place] Count) [facility] Start: 12-17-2016 End: 12-19-2016 Us preg uterus after 1st trimest 1/ gestation US OB, >14 weeks [facility] Start: 12-17-2016 End: 03-02-2017 *CBC with Differential *CBC with Differential [facility] Start: 12-17-2016 End: 12-19-2016 *GC/Chlamydia *GC/Chlamydia [facility] Start: 12-17-2016 End: 03-26-2017 *HEBSAG - Hep B Surface Antigen 6510 *HEBSAG - Hep B Surface Antigen 6510 [facility] Start: 12-17-2016 End: 03-26-2017 *HIV antibody *HIV antibody [facility] Start: 12-17-2016 End: 12-19-2016 *TS Type and Screen *TS Type and Screen [facility] Start: 12-17-2016 End: 12-17-2016 *UA - Urinalysis w/o Micro *UA - Urinalysis w/o Micro [facility] Start: 12-17-2016 End: 12-19-2016 Ob us >/= 14 wks, sngl fetus US OB, >14 weeks [facility] Start: 12-17-2016 End: 03-26-2017 Reagin antibody presence *RPR [facility] Start: 12-17-2016 End: 03-26-2017 Rubella virus Ab [Units/volume] in Serum *Rubella Screen [facility] Start: 12-17-2016 End: 12-19-2016 Urine culture, bacteria *CUUR - Culture, Urine ([place] Count) [facility] Hepatitis B virus surface IgG Ab [Presence] in Serum [facility] HIV 1+2 Ab+HIV1 p24 Ag [Presence] in Serum or Plasma by Immunoassay [facility] Patient Education ED NEEDLE STIC K Health Care Worker [facility] Work Phone: Patient referral [facility] Work Phone: Immunizations Immunization Date Immunization Notes Care Provider [facility] 12-30-2023 influenza, seasonal, injectable, preservative free Dr. Alon Erickson MD Work Phone: [facility] 05-28-2023 tetanus toxoid, redu demetria diphtheria toxoid, and acellular pertussis vaccine, adsorbed [facility] 02-11-2023 influenza, injectabl e, quadrivalent, preservative free [facility] 01-24-2022 influenza, injectabl e, quadrivalent, preservative free [facility] 11-30-2020 influenza, injectabl e, quadrivalent, preservative free Dr. Alon Erickson MD Work Phone: [facility] 04-21-2020 Covid (Moderna) Dr. Florentin Erickson MD Work Phone: [facility] 03-24-2020 Covid (Moderna) Dr. Florentin Erickson MD Work Phone: [facility] 12-29-2019 influenza, injectabl e, quadrivalent, preservative free Dr. Alon Erickson MD Work Phone: [facility] 02-23-2019 tetanus toxoid, redu demetria diphtheria toxoid, and acellular pertussis vaccine, adsorbed Dr. Alon Erickson MD Work Phone: [facility] 09-16-2018 measles, mumps and rubella virus vaccine Dr. Alon Erickson MD Work Phone: [facility] 08-19-2018 measles, mumps and rubella virus vaccine Dr. Alon Erickson MD Work Phone: [facility] 06-18-2017 tetanus toxoid, redu demetria diphtheria toxoid, and acellular pertussis vaccine, adsorbed [facility] 09-25-2006 hepatitis B vaccine, pediatric or pediatric/adolescent dosage Dr. Alon Erickson MD Work Phone: [facility] 11-26-2005 hepatitis B vaccine, pediatric or pediatric/adolescent dosage Dr. Alon Erickson MD Work Phone: [facility] 10-15-2005 hepatitis B vaccine, pediatric or pediatric/adolescent dosage Dr. Alon Erickson MD Work Phone: [facility] Payers Date Payer Category Payer Unknown [id number] 2023 Self-pay [id number] Unknown [id number] Unknown [employer] TPA [id number] Unknown [id number] 2.16.8 [id number] Unknown [id number] 2.16.8 [id number] Unknown [id number] 2.16.8 [id number] Unknown [id number] 2.16.8 [id number] Unknown [id number] 2.16.8 [id number] Unknown [id number] 2.16.8 [id number] Unknown [id number] 2.16.8 [id number] Unknown [id number] 2.16.8 [id number] Social History Date Type Detail Facility [facility]: [facility] Start: 1990 Sex Assigned At Female [facility] Start: 10-28-2023 [facility] ([facility] Clinical Notes 09-23-2020 to 08-31-2024 Note Date & Type Note Facility 06-23-2025 Evaluation note Diagnosis Onset Date Resolution Displaced fracture of proximal phalanx of left lesser toe(s), initial encou acute August 31, 2024 9:20am [facility] Work Phone: 1(561) 725-365706-23-2025 Radiology Diagnostic study note [facility] Imaging Services [address] [place], [place] [address] Foot min 3 Views MR#: [id number] Acct: [id number] Name: TARA ARGUELLES Rep #: [id number] : 1990 F 34 From: Ray Mccain MD PCP: Dr. Alon Erickson MD Status: R EG CLI Study:Foot min 3 Views Date of Exam: Exam# [id number] Ordering Dr: [facility] PROCEDURE: FOOT [...] or joint space narrowing identified. Reading Location: [place] [address] CC: Dr. 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 Author Type: Nurse Practitioner Type: Progress Notes Filed: 07/20/2021 10:04 AM Note Text: This Team Access Model visit is a virtual encounter. It required patient-provider interaction for the medical decision making as documented below. Patient agrees to the visit: Yes Patient Location: [place] CC: Patient presents with: Weight Problem HPI [...] (particularly word-finding difficulties). Exercise-- working out at [employer] about 3x/week with cardio and weight lifting. [...] exercise, treatment options and medications. Charlee Brush APRN.[facility]22 NoteHNO ID: [id number] Author: Charlee Brush APRN.STEPH Service: ? Author Type: Nurse Practitioner Type: Progress Notes Filed: 06/09/2021 1:14 PM Note Text: This Team Access Model visit is a virtual encounter. It required patient-provider interaction for the medical decision making as documented below. Patient agrees to the visit: Yes Patient Location: [place] CC: Patient presents with: Medication Follow-up HPI [...] study. Has still been working out at [employer] about 3x/week with cardio and weight lifting. [...] No history of dysuria, frequency or incontinence CALENDERER: Negative for abnormal vaginal bleeding, abnormal vaginal [...] due on 02/24/20 (more content not included)... [facility]03-16-2022 NoteHNO ID: [id number] Author: Mj Collier, DO Service: ? Author [...] plan. See patient instructions. Mj Collier DO [address] [place] [address] [facility]03-15-2022 NoteHNO ID: [id number] Author: Lui Davis LPN Service: ? Author [...] social activity: 1 - NOT DIFFICULT [facility]12-31-2021 NoteHNO ID: [id number] Author: Madeline Dey APRN.EDUCATIONAL TECHNOLOGY SPECIALIST Service: ? Author Type: Nurse Practitioner Type: [...] MG TABLET Agrees to plan Madeline Dey APRN.[facility]12-17-2021 NoteHNO ID: [id number] Author: Leonel Heller Population Health Navigator Service: ? Author Type: ? Type: Progress Notes Filed: 02/24/2021 2:38 PM Note Text: POPULATION HEALTH NAVIGATION OUTREACH Action/FYI Updated pcp field Contact made with patient or family member? NO Pt identified by name and : NO Outreach Outcome/Action PCP field updated Reason for Outreach Attribution: Provider Off-boarding Payer: Payor: [facility] / Plan: [facility] NON STAFF / Product Type: *No Product type* / Care Gap Reviewed:: Reminder: Reminder note to check Health Maintenance for items below Health Maintenance items due: DEPRESSION SCREENING due on 11/28/2019 COVID-19 VACCINE(3 - Booster for Moderna series) due on 10/19/2020 Advanced Directives Completed: Have you ever planned for future healthcare decisions with a power of trial attorney, living will, or advance directives? No. Please bring a copy to your next appointment or email to Referrals: N/A Message Sent to Practice: NO Navigation Signature: Leonel Heller Population Health Navigator February 24, 2021 2:37 [facility]12-17-2021 NotePatient Outreach (NETNAV) TARA ARGUELLES ([id number]) 1990 F [facility] Date Time Provider Department 02/24/21 LEONEL [...] for Outreach Attribution: Provider Off-boarding Payer: [facility]or: [facility] / Plan: [facility] NON STAFF / Product Type: *No Product type* / Care Gap Reviewed:: Reminder: Reminder note to check Health Maintenance for items below Health Maintenance items due: DEPRESSION SCREENING due on 11/28/2019 COVID-19 VACCINE(3 - Booster for Moderna series) due on 10/19/2020 Advanced Directives Completed: Have you ever planned for future healthcare decisions with a power of trial attorney, living will, or advance directives? No. Please bring a copy to your next appointment or email to [email or web address] Referrals: N/A Message Sent to Practice: NO Navigation Signature: Leonel Heller [facility] Navigator February 24, 2021 2:37 PM Allergies As of Date: 02/24/2021 Noted Allergy Reaction BEES 07/09/2005 Date Reviewed: 09/23/2020 Reviewed by: Doris Dean APRN.CNM - Fully Assessed Reason for Visit: Population [facility] Navigation Outreach [3910] Cmt: Offboarding Prescriptions as of 02/24/2021 - sertraline (ZOLOFT) 50 mg tablet Take 1 tablet by mouth once daily. 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 Author Type: Barn Manager Type: Progress Notes Filed: 09/23/2020 2:41 PM Note Text: [employer] Visit 09/23/2020 1:59 PM CC: STD screening [...] prevention. 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 Greater than 50% of this 30 minute visit was spent counseling the patient and coordinating care. Doris Dean APRN.[facility] noteNo assessment information availableWOur Lady of Mercy Hospital Work Phone: Summary Purpose Family History No Family History Records Found Relationship Condition Age at Onset Recorded Date/T janet father Diabetes mellitus Unknown mother Hypertension Unknown Advance Directives No Advanced Directives Records Found Advance Directive Response Recorded Date/ Time Living Will No May 28, 2023 12:36pm Power of Training Development Director No May 27 12:36pm Procedure Findings Note HNO ID: [id number] Author: Della Soni) Sherie Service: ? Author Type: Nurse Drilling Manager Type: Anesthesia Procedure Notes Filed: 01/21/2020 [...] section and content) DATE CREATED AUTHOR 01/27/2020 [facility] DATE CREATED AUTHOR AUTHOR'S ORGANIZ ATION 07/22/2021 [facility] DATE CREATED AUTHOR AUTHOR'S ORGANIZ ATION 11/27/2024 [facility] Care Teams (unrecognized sec tion and content) [...] BE BASED ON THE PRIMARY CLINICAL RECORDS. [facility]. provides no warranty or guarantee of the accuracy or completeness of information in this document.
[2024-12-09 16:09] LABS: HPV APTIMA, High Risk Negative (Negative)
== END | disposition home or self-care (01) ==
LOC: LABSPEC 12:14
PROVIDERS: PCP Internal Medicine; Referring Provider Nurse Practitioner Family; Visit Provider Nurse Practitioner Family
DX: Z12.4 Encounter for screening for malignant neoplasm of cervix (principal)
CPT/HCPCS: 87624; 88175; G0145

== ENCOUNTER → 2024-12-10 | Outpatient (CLI) | payer OTHER, SELFPAY | END | disposition home or self-care (01) | LOC: US 15:39 | PROVIDERS: PCP Internal Medicine; Referring Provider Obstetrics & Gynecology; Visit Provider Obstetrics & Gynecology | DX: N88.2 Stricture and stenosis of cervix uteri (principal) | CPT/HCPCS: 76830 ==